=== PATIENT | female | born 2000 | race Caucasian/White ===

== ENCOUNTER → 2023-05-18 | Outpatient (CLI) | payer OTHER, SELFPAY ==
--- OUTSIDE RECORDS SUMMARY | 2023-05-18 16:14 | XMS RPT_ITS | CCD ---
Author Name Unknown Address [address] [place] [address] Organization [facility] Care Team Providers Care Electric Detector Operator Name Role Phone BOY WEBBER, MAGGI Moreno Primary Care Physician [phone] Medications Current Medications Medication Drug Class(es) Dates Sig (Normalized) Sig (Original) {7 (Ethinyl Estradiol 0.035 MG / norgestimate 0.18 MG Oral Tablet) / 7 (Ethinyl Estradiol 0.035 MG / norgestimate 0.215 MG Oral Tablet) / 7 (Ethinyl Estradiol 0.035 MG / norgestimate 0.25 MG Oral Tablet) / 7 (Inert Ingredients 1 MG Oral Tablet) } Pack [Tr (1 source) Progestin, Estrogen Start: 04-30-2021 take 1 tablet by mouth once daily Tri-Sprintec oral tablet See Instructions, TAKE 1 TABLET EVERY DAY, # 84 tab(s), 3 Refill(s), Pharmacy: [facility], 162.6, cm, 04/09/20 13:39:00 EST, Height, kg, 04/09/20 13:39:00 EST, Dosing Weight Start Date: 04/30/21 Status: Ordered lactobacillus rhamnosus oral capsule (1 source) Start: 09-03-2021 take 1 capsule by mouth once daily lactobacillus rhamnosus oral capsule Dose = 1 cap(s), Oral, qDay, # 30 cap(s), 0 Refill(s), Pharmacy: [facility], 162, cm, 09/03/21 8:45:00 EDT, Height Start Date: 09/03/21 Status: Ordered Tri-Sprintec oral tablet (1 source) Start: 04-30-2021 take 1 tablet by mouth once daily Tri-Sprintec oral tablet See Instructions, TAKE 1 TABLET EVERY DAY, # 84 tab(s), 3 Refill(s), Pharmacy: [facility], 162.6, cm, 04/09/20 13:39:00 EST, Height, kg, 04/09/20 13:39:00 EST, Dosing Weight Start Date: 04/30/21 Status: Ordered Problems Problem Classification Problem Date Documented Da te Episodic/Chronic Contraceptive and procreative management (2 sources) Oral contraception 04-30-2021 Episodic Other ear and sense organ disorders (2 sources) Impacted cerumen 04-10-2020 Episodic Unclassified (2 sources) Patient encounter status 04-01-2020 Results Test Name Value Interpretation Reference Range Facil ity Encounters Encounter Date Encounter Type Care Provider Facility Start: 09-03-2021 End: 09-07-2021 Outreach Lab MAILE MANAGER INTEGRATION-ATMOSPHERIC SCIENCES PROFESSOR [facility] Start: 04-30-2021 End: 05-04-2021 Outreach Lab TADEO SRINIVASAN MANAGER INTEGRATION-ATMOSPHERIC SCIENCES PROFESSOR [facility] Immunizations Immunization Date Immunization Notes Care Provider Roxane johnston 04-20-2021 SARS-CoV-2 (COVID-19 ) mRNA-1273 vaccine TADEO SRINIVASAN MANAGER INTEGRATION-ATMOSPHERIC SCIENCES PROFESSOR [facility] 12-25-2020 influenza virus vacc ine, unspecified formulation TADEO SRINIVASAN MANAGER INTEGRATION-ATMOSPHERIC SCIENCES PROFESSOR [facility] 08-08-2020 SARS-CoV-2 mRNA (tozinameran) vaccine TADEO SRINIVASAN MANAGER INTEGRATION-ATMOSPHERIC SCIENCES PROFESSOR [facility] 07-10-2020 SARS-CoV-2 mRNA (tozinameran) vaccine TADEO SRINIVASAN MANAGER INTEGRATION-ATMOSPHERIC SCIENCES PROFESSOR [facility] 11-09-2017 hepatitis B vaccine, adult dosage TADEO SRINIVASAN MANAGER INTEGRATION-ATMOSPHERIC SCIENCES PROFESSOR [facility] 10-12-2016 hepatitis A vaccine, pediatric dosage, unspecified formulation TADEO SRINIVASAN MANAGER INTEGRATION-ATMOSPHERIC SCIENCES PROFESSOR [facility] 10-12-2016 hepatitis B pediatri c vaccine TADEO LEUNGERS MANAGER INTEGRATION-ATMOSPHERIC SCIENCES PROFESSOR [facility] 10-12-2016 meningococcal polysaccharide (groups A, C, Y and W-135) diphtheria toxoid conjugate vaccine (MCV4P) TADEO ZARINA MANAGER INTEGRATION-ATMOSPHERIC SCIENCES PROFESSOR [facility] 10-01-2011 meningococcal polysaccharide (groups A, C, Y and W-135) diphtheria toxoid conjugate vaccine (MCV4P) TADEO SRINIVASAN MANAGER INTEGRATION-ATMOSPHERIC SCIENCES PROFESSOR [facility] 10-01-2011 tetanus toxoid, redu martha diphtheria toxoid, and acellular pertussis vaccine, adsorbed TADEO ZARINA MANAGER INTEGRATION-ATMOSPHERIC SCIENCES PROFESSOR [facility] 10-01-2011 varicella virus vaccine CHELSEA HUIZAR MANAGER INTEGRATION-ATMOSPHERIC SCIENCES PROFESSOR [facility] 09-01-2004 measles/mumps/rubell a virus vaccine TADEO SRINIVASAN MANAGER INTEGRATION-ATMOSPHERIC SCIENCES PROFESSOR [facility] 09-01-2004 poliovirus vaccine, inactivated TADEO SRINIVASAN MANAGER INTEGRATION-ATMOSPHERIC SCIENCES PROFESSOR [facility] 02-28-2001 haemophilus influenz ae type b vaccine, PRP-OMP conjugate TADEO SRINIVASAN MANAGER INTEGRATION-ATMOSPHERIC SCIENCES PROFESSOR [facility] 12-01-2000 measles/mumps/rubell a virus vaccine TADEO SRINIVASAN MANAGER INTEGRATION-ATMOSPHERIC SCIENCES PROFESSOR [facility] 09-02-2000 hepatitis B pediatri c vaccine TADEO SRINIVASAN MANAGER INTEGRATION-ATMOSPHERIC SCIENCES PROFESSOR [facility] 09-02-2000 varicella virus vaccine CHELSEA HUIZAR MANAGER INTEGRATION-ATMOSPHERIC SCIENCES PROFESSOR [facility] 05-27-2000 poliovirus vaccine, inactivated TADEO SRINIVASAN MANAGER INTEGRATION-ATMOSPHERIC SCIENCES PROFESSOR [facility] 02-18-2000 haemophilus influenz ae type b vaccine, PRP-OMP conjugate TADEO SRINIVASAN MANAGER INTEGRATION-ATMOSPHERIC SCIENCES PROFESSOR [facility] 02-18-2000 hepatitis B pediatri c vaccine TADEO SRINIVASAN MANAGER INTEGRATION-ATMOSPHERIC SCIENCES PROFESSOR [facility] 1999 haemophilus influenz ae type b vaccine, PRP-OMP conjugate TADEO SRINIVASAN MANAGER INTEGRATION-ATMOSPHERIC SCIENCES PROFESSOR [facility] 1999 poliovirus vaccine, inactivated TADEO SRINIVASAN MANAGER INTEGRATION-ATMOSPHERIC SCIENCES PROFESSOR [facility] 1999 haemophilus influenz ae type b vaccine, PRP-OMP conjugate TADEO SRINIVASAN MANAGER INTEGRATION-ATMOSPHERIC SCIENCES PROFESSOR [facility] 1999 poliovirus vaccine, inactivated TADEO SRINIVASAN MANAGER INTEGRATION-ATMOSPHERIC SCIENCES PROFESSOR [facility] Social History Date Type Detail Facility Start: 02-02-2019 Never smoked t obacco (finding) [facility] Sex Assigned At [facility] Clinical Note 09-05-2021 Note Date & Type Note Facility 09-05-2021 Note . MICRO - Microbiology PROCEDURE: Urine Culture [*1] SOURCE: Urine, Clean Catch BODY SITE: COLLECTED DATE/TIME: 09/03/2021 08:59 EDT RECEIVED DATE/TIME: 09/03/2021 20:08 EDT START DATE/TIME: 09/03/2021 20:08 EDT FREE TEXT SOURCE: FINAL REPORTS Final Report [] Verified Date/Time/Personnel: 09/05/2021 07:41 EDT No growth at 48 hours. PRELIMINARY REPORTS Preliminary Report [] Verified Date/Time/Personnel: 09/04/2021 10:42 EDT No growth at 24 hours. Performing Locations *1: This test was performed at: [facility], [address] [place] [address], [facility] , [facility] Evaluation + Plan note Note Date & Type Note Facility Evaluation + Plan note No data available for this section [facility] Discharge instructions Note Date & Type Note Facility Hospital Discharge instructions No data available for this section [facility] Progress note Note Date & Type Note Facility Progress note No data available for this section [facility] Summary Purpose Family History No Family History Records Found Advance Directives No Advanced Directives Records Found Additional Source Comments Care Team (unrecognized sect ion and content) Personnel Name: NAUMOFF, MAGGI J MD Address: [address] INFORMATION SOURCE (unrecogn ized section and content) FOR RECORDS PERTAINING TO PATIENTS WHO ARE OR HAVE BEEN ENROLLED IN A CHEMICAL DEPENDENCY/SUBSTANCEABUSE PROGRAM, SOME INFORMATION MAY BE OMITTED. This clinical summary was aggregated from multiple sources. Caution should be exercised in using it in the provision of clinical care. This summary normalizes information from multiple sources, and as a consequence, information in this document may materially change the coding, format and clinical context of patient data. In addition, data may be omitted in some cases. CLINICAL DECISIONS SHOULD BE BASED ON THE PRIMARY CLINICAL RECORDS. [facility] [employer] provides no warranty or guarantee of the accuracy or completeness of information in this document.
[2023-05-21 06:10] LABS: Chlamydia By Nucleic Acid AMP Negative (Negative); Gonococcus By Nucleic Acid AMP Negative (Negative)
== END | disposition home or self-care (01) ==
LOC: LABSPEC 14:57
PROVIDERS: Referring Provider Registered Nurse; Visit Provider Registered Nurse
DX: Z34.90 Encounter for supervision of normal pregnancy, unspecified, unspecified trimester (principal); Z3A.00 Weeks of gestation of pregnancy not specified
CPT/HCPCS: 87086; 87491; 87591

== ENCOUNTER → 2023-05-30 | Outpatient (CLI) | payer OTHER, SELFPAY ==
[2023-05-30 15:41] LABS: Absolute Lymphocyte Count 1.79 X10^3/uL (0.83-4.51); Absolute Neutrophil Count 6.9 X10^3/uL (2.0-7.7); Basophil# 0.02 X10^3/uL; Basophil% 0.2 % (0-1); Eosinophil# 0.03 X10^3/uL; Eosinophils% 0.3 % (0-5); Hematocrit 37.4 % (37-47); Hemoglobin 11.8 g/dL (12.0-15.0); Lymphocyte # 1.79 X10^3/ul (0.83-4.51); Lymphocyte % 19.5 % (19-41); Mean Corp Hgb Conc 31.6 g/dL (32-36); Mean Corpuscular Hgb 27.5 pg (27.0-32.0); Mean Corpuscular Volume 87.2 fL (81-99); Monocyte# 0.34 X10^3/uL; Monocyte% 3.7 % (0-10); NRBC Flagged by Analyzer 0 % (0-5); Neutrophil # 6.94 X10^3/uL (2.7-7.7); Neutrophil % 75.6 % (47-70); Platelet Count 273 K/mm3 (150-450); RBC Distribution Width CV 12.4 % (11.6-14.6); RBC Distribution Width SD 39.5 fl (35.1-43.9); Red Blood Count 4.29 M/mm3 (4.2-5.4); White Blood Count 9.2 K/mm3 (4.4-11.0)
[2023-05-30 18:21] LABS: HIV - WCH Non-Reactive (Nonreactive); Hepatitis B Surface Antigen Non-Reactive (Nonreactive); Hepatitis C Antibody Non-Reactive (Nonreactive); Rubella IgG Reactive (Nonreactive); Syphilis Antibodies Non-reactive
== END | disposition home or self-care (01) ==
PROVIDERS: PCP Nurse Practitioner Primary Care; Referring Provider Registered Nurse; Visit Provider Registered Nurse
DX: Z34.90 Encounter for supervision of normal pregnancy, unspecified, unspecified trimester (principal); Z3A.00 Weeks of gestation of pregnancy not specified
CPT/HCPCS: 36415; 85025; 86703; 86762; 86780; 86803; 86850; 86900; 86901; 87340

== ENCOUNTER → 2023-06-03 14:17 | Outpatient (REF) | payer SELFPAY ==
[2023-06-03 14:18] VITALS: TEMP 36.6
--- NOTE | 2023-06-03 16:26 | EDS_ITS ---
HPI History of Present Illness Chief Complaint: Occup Expose Informant: patient Narrative Narrative: Patient present secondary to occupational exposure. 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 She irrigated her eyes for 15 to 20 minutes prior to arrival. Patient's hepatitis shots are up-to-date. She is currently 10 weeks . [facility] Medical History Seasonal allergies Home Medications PNV 153-FA 400 mcg-om3 35 mg-dha 25 mg-epa 5 mg-fish oil chew tablet tab PO 05/13/23 [History Last Taken Unknown] ondansetron 4 mg disintegrating tablet 4 mg PO Q8H #30 tabs 05/18/23 [Rx Last Taken Unknown] Allergy/AdvReac Type Severity Reaction Status Date / Time No Known Allergies Allergy Verified 06/03/23 14:18 Family History Grandmother Breast cancer, Onset Age: 50 Paternal Surgical History [place] teeth extracted Social History adopted: No household members: spouse current occupational status: employed 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 history of recent travel: Yes ([facility]- [place]) out of state: Yes out of country: No sexually active: Yes Smoking Status: Never smoker alcohol intake: current alcohol intake frequency: holidays/special occasions only details: not while substance use type: does not use well-balanced diet: daily or most days caffeine: No eating out: 1-3 times/week during the past year weight has: remained stable what type of physical activity do you participate in: walking frequency: 1-2 times per week duration: 15-30 minutes/day michaela/baptism: Congregational seatbelt use: always do you feel safe at home: Yes 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 ROS ROS ED Constitutional Constitutional ED: Denies chills or fever(s) Eyes Eyes: Denies change in vision or discharge from eye(s) ENT ENT ED: Denies discharge from eye(s) or rhinorrhea Cardiovascular Cardiovascular: Denies chest pain Respiratory/Chest Respiratory/Chest: Denies cough or dyspnea Gastrointestinal Gastrointestinal: Reports nausea; Denies abdominal pain or vomiting Musculoskeletal Musculoskeletal: Denies back pain or extremity pain Integumentary Denies Abrasions or rash Neurologic Neurologic: Denies headache(s) or weakness Psychiatric Psychiatric: Denies anxiety or depression Allergic/Immunologic Allergic/Immunologic ED: Denies lip swelling or urticaria EXAM Physical Exam Const Vital Signs: 06/03/23 14:18 Temperature 98 F Temperature Source Temporal Oxygen Delivery Method Room Air Positive well nourished and well developed General Appearance ED: well developed HEENT Reports moist mucous membranes Eyes PERRL and EOMs intact bilaterally Chest Wall inspection of chest normal and palpation of chest normal Resp normal respiratory effort and clear to auscultation bilaterally Cardio regular rate and regular rhythm GI non-tender Palpation: soft Neuro oriented x3 Skin no rashes or lesions noted MDM MDM MDM Narrative Medical decision making narrative: Lab work was obtained per protocol from both patient as well as the surgical patient that exposed her. She will follow-up with employee [facility]. Discharge Plan Triage Chief Complaint: Occup Expose ED Provider: Olivia Collazo Dx/Rx/DC Orders Clinical Impression: Exposure to body fluid Instructions: ED Body Fluid Exposure Not ... Prescriptions: No Action PNV no.474-[id number]-fgi-[id number]-lzuh 400 mcg-35 mg- 25 mg-5 mg tablet,chewable PO ondansetron 4 mg tablet,disintegrating 4 mg PO Q8H Qty: 30 3RF Primary Care Provider: Sonam Martinez NP Referrals: Health,Employee [Non-Staff -Ordering Privileges] - 3-5 Days Sonam Martinez NP, [facility] [Primary Care Provider] - Disposition Disposition: Home, Self Care
[2023-06-03 17:09] LABS: HIV - WCH Non-Reactive (Nonreactive); Hepatitis B Surface Antibody Reactive; Hepatitis B Surface Antigen Non-Reactive (Nonreactive); Hepatitis C Antibody Non-Reactive (Nonreactive)
[2023-06-05 08:08] LABS: Hepatitis B Core Ab Total Negative (Negative)
== END | disposition home or self-care (01) ==
LOC: ED 14:17
PROVIDERS: PCP Nurse Practitioner Primary Care; Visit Provider Emergency Medicine
DX: Z77.21 Contact with and (suspected) exposure to potentially hazardous body fluids (principal)
CPT/HCPCS: 86703; 86704; 86706; 86803; 87340

== ENCOUNTER → 2023-07-26 | Outpatient (CLI) | payer OTHER, SELFPAY ==
[2023-07-26 10:52] LABS: Absolute Lymphocyte Count 1.44 X10^3/uL (0.83-4.51); Absolute Neutrophil Count 7.3 X10^3/uL (2.0-7.7); Basophil# 0.04 X10^3/uL; Basophil% 0.4 % (0-1); Eosinophil# 0.04 X10^3/uL; Eosinophils% 0.4 % (0-5); Hematocrit 34.5 % (37-47); Hemoglobin 11.2 g/dL (12.0-15.0); Lymphocyte # 1.44 X10^3/ul (0.83-4.51); Lymphocyte % 15.5 % (19-41); Mean Corp Hgb Conc 32.5 g/dL (32-36); Mean Corpuscular Hgb 28.6 pg (27.0-32.0); Mean Corpuscular Volume 88.2 fL (81-99); Mean Platelet Vol. 9.9 fl (6.2-12.0); Monocyte# 0.41 X10^3/uL; Monocyte% 4.4 % (0-10); NRBC Flagged by Analyzer 0 % (0-5); Neutrophil % 78.8 % (47-70); Platelet Count 245 K/mm3 (150-450); RBC Distribution Width CV 13.4 % (11.6-14.6); RBC Distribution Width SD 43.2 fl (35.1-43.9); Red Blood Count 3.91 M/mm3 (4.2-5.4); White Blood Count 9.3 K/mm3 (4.4-11.0)
== END | disposition home or self-care (01) ==
LOC: LAB 10:19
PROVIDERS: PCP Nurse Practitioner Primary Care; Referring Provider Nurse Practitioner Women's Health; Visit Provider Nurse Practitioner Women's Health
DX: Z34.00 Encounter for supervision of normal first pregnancy, unspecified trimester (principal); Z3A.00 Weeks of gestation of pregnancy not specified
CPT/HCPCS: 36415; 85025

== ENCOUNTER → 2023-09-21 | Outpatient (CLI) | payer OTHER, SELFPAY ==
[2023-09-21 16:23] LABS: Absolute Neutrophil Count 6.8 X10^3/uL (2.0-7.7); Basophil# 0.04 X10^3/uL; Basophil% 0.4 % (0-1); Eosinophil# 0.05 X10^3/uL; Eosinophils% 0.5 % (0-5); Hematocrit 32.3 % (37-47); Hemoglobin 10.1 g/dL (12.0-15.0); Lymphocyte % 17.3 % (19-41); Mean Corp Hgb Conc 31.3 g/dL (32-36); Mean Corpuscular Volume 89.5 fL (81-99); Mean Platelet Vol. 10.2 fl (6.2-12.0); Monocyte# 0.64 X10^3/uL; Monocyte% 6.9 % (0-10); NRBC Flagged by Analyzer 0 % (0-5); Neutrophil # 6.83 X10^3/uL (2.7-7.7); Neutrophil % 73.9 % (47-70); Platelet Count 249 K/mm3 (150-450); RBC Distribution Width CV 12.5 % (11.6-14.6); RBC Distribution Width SD 40.7 fl (35.1-43.9); Red Blood Count 3.61 M/mm3 (4.2-5.4); White Blood Count 9.3 K/mm3 (4.4-11.0)
[2023-09-21 16:49] LABS: Glucose Challenge Gest 1H 50g 108 mg/dL (70-140)
[2023-09-21 17:09] LABS: HIV - WCH Non-Reactive (Nonreactive); Syphilis Antibodies Non-reactive
== END | disposition home or self-care (01) ==
LOC: LAB 14:26
PROVIDERS: PCP Nurse Practitioner Primary Care; Visit Provider Obstetrics & Gynecology
DX: Z34.00 Encounter for supervision of normal first pregnancy, unspecified trimester (principal); Z3A.00 Weeks of gestation of pregnancy not specified
CPT/HCPCS: 36415; 82950; 85025; 86703; 86780

== ENCOUNTER → 2023-10-12 | Outpatient (CLI) | payer OTHER, SELFPAY ==
[2023-10-12 16:03] LABS: Absolute Lymphocyte Count 1.86 X10^3/uL (0.83-4.51); Absolute Neutrophil Count 7.6 X10^3/uL (2.0-7.7); Basophil# 0.04 X10^3/uL; Basophil% 0.4 % (0-1); Eosinophil# 0.06 X10^3/uL; Eosinophils% 0.6 % (0-5); Hematocrit 33.2 % (37-47); Hemoglobin 10.3 g/dL (12.0-15.0); Lymphocyte # 1.86 X10^3/ul (0.83-4.51); Lymphocyte % 17.7 % (19-41); Mean Corpuscular Hgb 27.5 pg (27.0-32.0); Mean Corpuscular Volume 88.8 fL (81-99); Mean Platelet Vol. 10.2 fl (6.2-12.0); Monocyte# 0.77 X10^3/uL; Monocyte% 7.3 % (0-10); NRBC Flagged by Analyzer 0 % (0-5); Neutrophil # 7.62 X10^3/uL (2.7-7.7); Neutrophil % 72.5 % (47-70); Platelet Count 236 K/mm3 (150-450); RBC Distribution Width SD 42.2 fl (35.1-43.9); Red Blood Count 3.74 M/mm3 (4.2-5.4); White Blood Count 10.5 K/mm3 (4.4-11.0)
[2023-10-12 16:35] LABS: ALB/GLOB Ratio 0.7 RATIO (0.9-2.4); AST(SGOT) 29 U/L (15-37); Alanine Aminotransfer ALT/SGPT 24 U/L (13-56); Albumin, Serum 2.9 g/dL (3.2-5.0); Alkaline Phosphatase 60 U/L (45-117); Anion Gap 7 (5-15); BUN 9 mg/dL (7-18); Calcium,Total 8.9 mg/dL (8.5-10.1); Chloride 108 mmol/L (98-107); EST Glomerular Filtration Rate 161 mL/min (>60); Est Glom Filt Rate - Afr Amer 195 mL/min (>60); Globulin 3.9 g/dL (2.2-4.2); Glucose 92 mg/dL (74-106); Potassium 3.7 mmol/L (3.5-5.1); Protein, Total 6.8 g/dL (6.4-8.2); Sodium Level 137 mmol/L (136-145); Total Bilirubin < 0.10 mg/dL (0.20-1.00)
[2023-10-12 16:47] LABS: Protein, Urine (Random) 8.2 mg/dL (<11.9); Protein:Creat Ratio 201 mg/g CRE (0-200)
== END | disposition home or self-care (01) ==
LOC: LAB 15:18
PROVIDERS: PCP Nurse Practitioner Primary Care; Referring Provider Advanced Practice Midwife; Visit Provider Advanced Practice Midwife
DX: R07.81 Pleurodynia (principal); D64.9 Anemia, unspecified
CPT/HCPCS: 36415; 80053; 82570; 84156; 85025

== ENCOUNTER 2023-11-15 21:25 | Outpatient (CLI) | payer OTHER, SELFPAY ==
[2023-11-15 21:49] VITALS: PULSE 90; O2SAT 99
[2023-11-15 21:50] VITALS: BP 126/71; PULSE 90
[2023-11-15 22:17] VITALS: BMI 32.4
--- NOTE | 2023-11-15 23:51 | OB.TRI.HP_ITS ---
HPI - General HPI Narrative MARTHA WINN, is a 23 y/o @ 34 weeks 1 day who presents to L&D with decreased movement. She has just the minimal movements today (4 kicks in 40 minutes) and states that her baby is usually more active than that. Maternal Data Information DAMARIS Calculator Estimated Delivery Date Method Current WG Current Estimate 12/28/23 LMP (Certain) 34w 1d PFSH PFSH Medical History Seasonal allergies Home Medications ?Medication ?Instructions ?Recorded ?Last Taken ?Type PNV 153-FA 400 mcg-om3 35 mg-dha tab PO 05/13/23 11/15/23 History 25 mg-epa 5 mg-fish oil chew tablet ondansetron 4 mg disintegrating 4 mg PO Q8H #30 tabs 05/18/23 Unknown Rx tablet ferrous sulfate 137 mg (45 mg 137 mg PO DAILY 10/12/23 11/14/23 History iron) tablet,extended release (Slow Fe) Allergy/AdvReac Type Severity Reaction Status Date / Time No Known Allergies Allergy Verified 11/15/23 22:18 Family History Grandmother Breast cancer, Onset Age: 50 Paternal Surgical History [place] teeth extracted Social History adopted: No household members: spouse current occupational status: employed 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 history of recent travel: Yes ([facility]- [place]) out of state: Yes out of country: No sexually active: Yes Smoking Status: Never smoker alcohol intake: current alcohol intake frequency: holidays/special occasions only details: not while substance use type: does not use well-balanced diet: daily or most days caffeine: No eating out: 1-3 times/week during the past year weight has: remained stable what type of physical activity do you participate in: walking frequency: 1-2 times per week duration: 15-30 minutes/day michaela/orthodox: Mu-Ism seatbelt use: always do you feel safe at home: Yes 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 History 1 Elective abortions Hx Para 0 Spontaneous abortions Hx # Term Pregnancies Ectopic pregnancies Hx # Pregnancies Multiple births # of living children Visit Details Expected Delivery Route/Plan Labor Preferences- CB/BF classes: [] labor support person: [] labor intervention preferences: [] pain management options preferred: [] cut cord/dad catch: [] : [] PP control planned: [] discussed possible routes of delivery and associated risks: [] special requests: [] Plans Covid status: [] Flu vaccine: [] Tdap vaccine: [] Rhogam: [] LARC form signed: [] Problem list reviewed and updated with the most current plan of care details and appropriate orders placed. Relevant counseling for the gestational age provided. Continue routine care and follow up unless otherwise noted in visit notes/problem list details OB Flowsheet Initial Weight: 142 lb Date -?-?-?-?-?-?-?-?-?-?-?-?- EGA Weight BP Urine Prot -?-?-?-?-?-?-?-?-?-?-?-?- Glucose FHR FuHt Pres Dilation -?-?-?-?-?-?-?-?-?-?-?-?- Effaced St Visit Note 05/18/23 -?-?-?-?-?-?-?-?-?-?-?-?- 8w 0d 142 lb 8 oz (+8 oz) 117/73 -?-?-?-?-?-?-?-?-?-?-?-?- 163 -?-?-?-?-?-?-?-?-?-?-?-?- LC- CRL 13.5mm c on with LMP. 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 06/29/23 -?-?-?-?-?-?-?-?-?-?-?-?- 14w 0d 141 lb 2 oz (-14 oz) 113/76 Negative -?-?-?-?-?-?-?-?-?-?-?-?- Negative 156 -?-?-?-?-?-?-?-?-?-?-?-?- JV-no lof, vagin al bleeding, or cramping. 07/26/23 -?-?-?-?-?-?-?-?-?-?-?-?- 17w 6d 145 lb 8 oz (+3 lb 8 oz) 122/70 Negative -?-?-?-?-?-?-?-?-?-?-?-?- Negative 161 -?-?-?-?-?-?-?-?-?-?-?-?- MH-Episode of bl urred vision, numbness of lips and fingertips. [place] dizzy. 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 Reviewed diet, fluids, carb intake etc. FM heard w/doppler. POC glucoe 118. 08/25/23 -?-?-?-?-?-?-?-?-?-?-?-?- 22w 1d 154 lb (+12 lb) 106/72 Negative -?--?-?-?-?-?-?-?-?-?-?-?- Negative 150 -?-?-?-?-?-?-?-?-?-?-?-?- SM- no vb lof go od fm no regualr ctx 09/22/23 -?-?-?-?-?-?-?-?-?-?-?-?- 26w 1d 165 lb 8 oz (+23 lb 8 oz) 114/68 Negative -?-?-?-?-?-?-?-?-?-?-?-?- Negative 140 27 -?-?-?-?-?-?-?-?-?-?-?-?- KW- no vb/lof/ct x. good fm. LARC done. passed glucose. started PO iron. repeat cbc in 4 weeks 10/12/23 -?-?-?-?-?-?-?-?-?-?-?-?- 29w 0d 172 lb (+30 lb) 131/82 128/74 Negative -?-?-?-?-?-?-?-?-?-?-?-?- Negative 140 29 -?-?-?-?-?-?-?-?-?-?-?-?- KW- no vb/lof/ct x. good fm. having rib pain on and off with some episodes of dizziness. compression hose encouraged. pre e labs today 11/01/23 -?-?-?-?-?-?-?-?-?-?-?-?- 31w 6d 183 lb (+41 lb) 130/74 Negative -?-?-?-?-?-?-?-?-?-?-?-?- Negative 140 32 -?-?-?-?-?-?-?-?-?-?-?-?- SM- no vb lof go od fm no regular ctx ROS Constitutional Constitutional: Reports systems reviewed and no addt'l complaints, except as documented Gastrointestinal Gastrointestinal: Denies bloating, constipation, cramping, diarrhea, nausea or vomiting Genitourinary Genitourinary: Reports other Details: Denies vaginal odor, vaginal bleeding, or vaginal discharge ; Denies difficulty urinating or flank pain NST FHR Rate Baby A Baseline: 125 Variability:: Moderate Accelerations:: 15 x 15 Decelerations:: None NST Reactive:: Yes FHR Category:: Category I Uterine Activity:: no contractions Assessment & Plan (1) Anemia: COMMENT: repeat CBC in 4 wks (30weeks) (2) Supervision of normal first : QUALIFIERS: Trimester: second trimester Qualified Code(s): Z34.02 - Encounter for supervision of normal first , second trimester COMMENT: PRR, , DAMARIS 12/28/23, boy Endy Rambo (3) : QUALIFIERS: Weeks of gestation: 30 weeks Qualified Code(s): Z3A.30 - 30 weeks gestation of COMMENT: anatomy nl, discussed genetic & carrier testing. declined afp. (4) Decreased movement affecting management of mother, antepartum: PLAN: Plan NSt reactive. patient reassured and is now feeling movement since being on the unit. ok to discharge to home. Charges/Coding Multi Select Codes Urinary/Genital Urinary/Genital CPT Codes: 04949-24 non-stress test Interp
== END 2023-11-15 22:37 | disposition home or self-care (01) ==
LOC: WPOUT 21:29 → WP 21:29
PROVIDERS: PCP Nurse Practitioner Primary Care; Referring Provider Obstetrics & Gynecology; Visit Provider Obstetrics & Gynecology
DX: O36.8130 Decreased fetal movements, third trimester, not applicable or unspecified (principal); Z3A.30 30 weeks gestation of pregnancy
CPT/HCPCS: 59025; 59050; 99221; G0378

== ENCOUNTER → 2023-11-30 | Outpatient (CLI) | payer OTHER, SELFPAY | END | disposition home or self-care (01) | PROVIDERS: PCP Nurse Practitioner Primary Care; Referring Provider Obstetrics & Gynecology; Visit Provider Obstetrics & Gynecology | DX: Z34.02 Encounter for supervision of normal first pregnancy, second trimester (principal) | CPT/HCPCS: 87081 ==

== ENCOUNTER 2023-12-21 10:09 | Outpatient (CLI) | payer OTHER, SELFPAY ==
[2023-12-21 10:40] VITALS: BP 125/77; PULSE 102; RESP 16; TEMP 37.1; O2SAT 98
[2023-12-21 10:52] VITALS: BMI 34.5
[2023-12-21 11:24] LABS: ROM Internal Control Test YES-OK TO RESULT pt. (Internal QC); ROM Patient Test Negative (Negative); Record Kit Lot#, ROM+ K1866
--- NOTE | 2023-12-21 15:49 | OB.TRI.HP_ITS ---
HPI - General HPI Narrative MARTHA WINN, is a 23 y/o @ 39 weeks who presents to L&D with the complaint of leaking fluid and back pain. She denies vaginal bleeding or decreased movement. Maternal Data Information DAMARIS Calculator Estimated Delivery Date Method Current WG Current Estimate 12/28/23 LMP (Certain) 39w 0d PFSH PFSH Medical History Seasonal allergies Home Medications ?Medication ?Instructions ?Recorded ?Last Taken ?Type PNV 153-FA 400 mcg-om3 35 mg-dha 1 tab PO DAILY 05/13/23 12/21/23 History 25 mg-epa 5 mg-fish oil chew tablet ondansetron 4 mg disintegrating 4 mg PO Q8H #30 tabs 05/18/23 Unknown Rx tablet ferrous sulfate 137 mg (45 mg 137 mg PO DAILY 10/12/23 12/20/23 History iron) tablet,extended release (Slow Fe) Allergy/AdvReac Type Severity Reaction Status Date / Time No Known Allergies Allergy Verified 12/21/23 10:54 Family History Grandmother Breast cancer, Onset Age: 50 Paternal Surgical History [place] teeth extracted Social History adopted: No household members: spouse current occupational status: employed 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 pets and animals: No history of recent travel: Yes ([facility]- March) out of state: Yes out of country: No sexually active: Yes Smoking Status: Never smoker alcohol intake: current alcohol intake frequency: holidays/special occasions only details: not while substance use type: does not use well-balanced diet: daily or most days caffeine: No eating out: 1-3 times/week during the past year weight has: remained stable what type of physical activity do you participate in: walking frequency: 1-2 times per week duration: 15-30 minutes/day michaela/caodaism: Confucianism seatbelt use: always do you feel safe at home: Yes 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 History 1 Elective abortions Hx Para 0 Spontaneous abortions Hx # Term Pregnancies Ectopic pregnancies Hx # Pregnancies Multiple births # of living children Visit Details Expected Delivery Route/Plan Labor Preferences- CB/BF classes: [] labor support person: [] labor intervention preferences: [] pain management options preferred: [] cut cord/dad catch: [] : [] PP control planned: [] discussed possible routes of delivery and associated risks: [] special requests: [] Plans Covid status: [] Flu vaccine: Tdap vaccine:declined Rhogam: na LARC form signed: declined movement and labor precautions reviewed. Problem list reviewed and updated with the most current plan of care details and appropriate orders placed. Relevant counseling for the gestational age provided. Continue routine care and follow up unless otherwise noted in visit notes/problem list details OB Flowsheet Initial Weight: 142 lb Date -?-?-?-?-?-?-?-?-?-?-?-?- EGA Weight BP Urine Prot -?-?-?-?-?-?-?-?-?-?-?-?- Glucose FHR FuHt Pres Dilation -?-?-?-?-?-?-?-?-?-?-?-?- Effaced St Visit Note 05/18/23 -?-?-?-?-?-?-?-?-?-?-?-?- 8w 0d 142 lb 8 oz (+8 oz) 117/73 -?-?-?-?-?-?-?-?-?-?-?-?- 163 -?-?-?-?-?-?-?-?-?-?-?-?- LC- CRL 13.5mm c on with LMP. 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 06/29/23 -?-?-?-?-?-?-?-?-?-?-?-?- 14w 0d 141 lb 2 oz (-14 oz) 113/76 Negative -?-?-?-?-?-?-?-?-?-?-?-?- Negative 156 -?-?-?-?-?-?-?-?-?-?-?-?- JV-no lof, vagin al bleeding, or cramping. 07/26/23 -?-?-?-?-?-?-?-?-?-?-?-?- 17w 6d 145 lb 8 oz (+3 lb 8 oz) 122/70 Negative -?-?-?-?-?-?-?-?-?-?-?-?- Negative 161 -?-?-?-?-?-?-?-?-?-?-?-?- MH-Episode of bl urred vision, numbness of lips and fingertips. [place] dizzy. RN her at [facility] and came up to office. Reviewed diet, fluids, carb intake etc. FM heard w/doppler. POC glucoe 118. 08/25/23 -?-?-?-?-?-?-?-?-?-?-?-?- 22w 1d 154 lb (+12 lb) 106/72 Negative -?-?-?-?-?-?-?-?-?-?-?-?- Negative 150 -?-?-?-?-?-?-?-?-?-?-?-?- SM- no vb lof go od fm no regualr ctx 09/22/23 -?-?-?-?-?-?-?-?-?-?-?-?- 26w 1d 165 lb 8 oz (+23 lb 8 oz) 114/68 Negative -?-?-?-?-?-?-?-?-?-?-?-?- Negative 140 27 -?-?-?-?-?-?-?--?-?-?-?-?- KW- no vb/lof/ct x. good fm. LARC done. passed glucose. started PO iron. repeat cbc in 4 weeks 10/12/23 -?-?-?-?-?-?-?-?-?-?-?-?- 29w 0d 172 lb (+30 lb) 131/82 128/74 Negative -?-?-?-?-?-?-?-?-?-?-?-?- Negative 140 29 -?-?-?-?-?-?-?-?-?-?-?-?- KW- no vb/lof/ct x. good fm. having rib pain on and off with some episodes of dizziness. compression hose encouraged. pre e labs today 11/01/23 -?-?-?-?-?-?-?-?-?-?-?-?- 31w 6d 183 lb (+41 lb) 130/74 Negative -?-?-?-?-?-?-?-?-?-?-?-?- Negative 140 32 -?-?-?-?-?-?-?-?-?-?-?-?- SM- no vb lof go od fm no regular ctx 11/18/23 -?-?-?-?-?-?-?-?-?-?-?-?- 34w 2d 192 lb (+50 lb) 113/72 Negative -?-?-?-?-?-?-?-?-?-?-?-?- Negative 144 35 -?-?-?-?-?-?--?-?-?-?-?-?- JV- no lof, vagi nal bleeding, or dec fm. no complaints. inquiring about RSV vaccine. 11/30/23 -?-?-?-?-?-?-?-?-?-?-?-?- 36w 0d 195 lb (+53 lb) 195 lb (+53 lb) 118/75 Negative -?-?-?-?-?-?-?-?-?-?-?-?- Negative 135 36 Cephalic -?-?-?-?-?-?-?-?-?-?-?-?- Sm- no vb lof go od fm no regular ctx. 12/05/23 -?-?-?-?-?-?-?-?-?-?-?-?- 36w 5d 198 lb 2 oz (+56 lb 2 oz) 116/76 Negative -?-?-?-?-?--?-?-?-?-?-?-?- Negative 130 36 Cephalic 0 -?-?-?-?-?-?-?-?-?-?-?-?- JV- gbs is neg. cx is closed/thick/high/ posterior. vtx on bedside ultrasound. 12/12/23 -?-?-?-?-?-?-?-?-?-?-?-?- 37w 5d 201 lb 2 oz (+59 lb 2 oz) 122/85 Negative -?-?-?-?-?-?-?-?-?-?-?-?- Negative 141 37 Cephalic 0 -?-?-?-?-?-?-?-?-?-?-?-?- JV- no lof, vagi nal bleeding, or dec fm. cx is softer and more anterior than last visit. ROS Constitutional Constitutional: Reports systems reviewed and no addt'l complaints, except as documented Gastrointestinal Gastrointestinal: Denies bloating, constipation, cramping, diarrhea, nausea or vomiting Genitourinary Genitourinary: Reports other Details: Denies vaginal odor, vaginal bleeding, or vaginal discharge ; Denies difficulty urinating or flank pain NST FHR Rate Baby A Baseline: 140 Variability:: Moderate Accelerations:: 15 x 15 Decelerations:: None NST Reactive:: Yes FHR Category:: Category I Assessment & Plan (1) False labor after 37 completed weeks of gestation: COMMENT: Rom plus is negative 12/21/23 PLAN: reactive nst ok to dc to home with labor precautions. (2) Decreased movement affecting management of mother, antepartum: (3) Anemia: COMMENT: repeat CBC in 4 wks (30weeks) (4) Supervision of normal first : QUALIFIERS: Trimester: second trimester Qualified Code(s): Z34.02 - Encounter for supervision of normal first , second trimester COMMENT: PRR, , DAMARIS 12/28/23, boy Endy Rambo (5) : QUALIFIERS: Weeks of gestation: 37 weeks Qualified Code(s): Z3A.37 - 37 weeks gestation of COMMENT: anatomy nl, discussed genetic & carrier testing. declined afp. Charges/Coding Multi Select Codes Urinary/Genital Urinary/Genital CPT Codes: 21869-07 non-stress test Interp
--- NOTE | 2023-12-21 15:49 | OB.TRI.NOTE ---
HPI - General HPI Narrative MARTHA WINN, is a 23 y/o @ 39 weeks who presents to L&D with the complaint of leaking fluid and back pain. She denies vaginal bleeding or decreased movement. Maternal Data Information DAMARIS Calculator Estimated Delivery Date Method Current WG Current Estimate 12/28/23 LMP (Certain) 39w 0d PFSH PFSH Medical History Seasonal allergies Home Medications ?Medication ?Instructions ?Recorded ?Last Taken ?Type PNV 153-FA 400 mcg-om3 35 mg-dha 1 tab PO DAILY 05/13/23 12/21/23 History 25 mg-epa 5 mg-fish oil chew tablet ondansetron 4 mg disintegrating 4 mg PO Q8H #30 tabs 05/18/23 Unknown Rx tablet ferrous sulfate 137 mg (45 mg 137 mg PO DAILY 10/12/23 12/20/23 History iron) tablet,extended release (Slow Fe) Allergy/AdvReac Type Severity Reaction Status Date / Time No Known Allergies Allergy Verified 12/21/23 10:54 Family History Grandmother Breast cancer, Onset Age: 50 Paternal Surgical History [place] teeth extracted Social History adopted: No household members: spouse current occupational status: employed 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: No history of recent travel: Yes (COUNTS INCLUDE 234 BEDS AT [facility]- March) out of state: Yes out of country: No sexually active: Yes Smoking Status: Never smoker alcohol intake: current alcohol intake frequency: holidays/special occasions only details: not while substance use type: does not use well-balanced diet: daily or most days caffeine: No eating out: 1-3 times/week during the past year weight has: remained stable what type of physical activity do you participate in: walking frequency: 1-2 times per week duration: 15-30 minutes/day michaela/nondenominational: Anabaptist seatbelt use: always do you feel safe at home: Yes 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 History 1 Elective abortions Hx Para 0 Spontaneous abortions Hx # Term Pregnancies Ectopic pregnancies Hx # Pregnancies Multiple births # of living children Visit Details Expected Delivery Route/Plan Labor Preferences- CB/BF classes: [] labor support person: [] labor intervention preferences: [] pain management options preferred: [] cut cord/dad catch: [] : [] PP control planned: [] discussed possible routes of delivery and associated risks: [] special requests: [] Plans Covid status: [] Flu vaccine: Tdap vaccine:declined Rhogam: na LARC form signed: declined movement and labor precautions reviewed. Problem list reviewed and updated with the most current plan of care details and appropriate orders placed. Relevant counseling for the gestational age provided. Continue routine care and follow up unless otherwise noted in visit notes/problem list details OB Flowsheet Initial Weight: 142 lb Date <del>?</del> EGA Weight BP Urine Prot <del>?</del> Glucose FHR FuHt Pres Dilation <del>?</del> Effaced St Visit Note 05/18/23 <del>?</del> 8w 0d 142 lb 8 oz (+8 oz) 117/73 <del>?</del> 163 <del>?</del> LC- CRL 13.5mm con with LMP. unsure about nipt.OR nurse, radiology info given 06/01/23 <del>?</del> 10w 0d 139 lb 6 oz (-2 lb 10 oz) 114/79 Negative <del>?</del> Negative 160 <del>?</del> JV- no lof, vaginal bleeding, or dec fm . 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 07/26/23 <del>?</del> 17w 6d 145 lb 8 oz (+3 lb 8 oz) 122/70 Negative <del>?</del> Negative 161 <del>?</del> MH-Episode of blurred vision, numbness of lips and fingertips. [place] dizzy. RN her at [facility] and came up to office. Reviewed diet, fluids, carb intake etc. FM heard w/doppler. POC glucoe 118. 08/25/23 <del>?</del> 22w 1d 154 lb (+12 lb) 106/72 Negative <del>?</del> Negative 150 <del>?</del> SM- no vb lof good fm no regualr ctx 09/22/23 <del>?</del> 26w 1d 165 lb 8 oz (+23 lb 8 oz) 114/68 Negative <del>?</del> Negative 140 27 <del>?</del> KW- no vb/lof/ctx. good fm. LARC done. passed glucose. started PO iron. repeat cbc in 4 weeks 10/12/23 <del>?</del> 29w 0d 172 lb (+30 lb) 131/82 128/74 Negative <del>?</del> Negative 140 29 <del>?</del> KW- no vb/lof/ctx. good fm. having rib pain on and off with some episodes of dizziness. compression hose encouraged. pre e labs today 11/01/23 <del>?</del> 31w 6d 183 lb (+41 lb) 130/74 Negative <del>?</del> Negative 140 32 <del>?</del> SM- no vb lof good fm no regular ctx 11/18/23 <del>?</del> 34w 2d 192 lb (+50 lb) 113/72 Negative <del>?</del> Negative 144 35 <del>?</del> JV- no lof, vaginal bleeding, or dec fm. no complaints. inquiring about RSV vaccine. 11/30/23 <del>?</del> 36w 0d 195 lb (+53 lb) 195 lb (+53 lb) 118/75 Negative <del>?</del> Negative 135 36 Cephalic <del>?</del> Sm- no vb lof good fm no regular ctx. 12/05/23 <del>?</del> 36w 5d 198 lb 2 oz (+56 lb 2 oz) 116/76 Negative <del>?</del> Negative 130 36 Cephalic 0 <del>?</del> JV- gbs is neg. cx is closed/thick/high/ posterior. vtx on bedside ultrasound. 12/12/23 <del>?</del> 37w 5d 201 lb 2 oz (+59 lb 2 oz) 122/85 Negative <del>?</del> Negative 141 37 Cephalic 0 <del>?</del> JV- no lof, vaginal bleeding, or dec fm. cx is softer and more anterior than last visit. ROS Constitutional Constitutional: Reports systems reviewed and no addt'l complaints, except as documented Gastrointestinal Gastrointestinal: Denies bloating, constipation, cramping, diarrhea, nausea or vomiting Genitourinary Genitourinary: Reports other Details: Denies vaginal odor, vaginal bleeding, or vaginal discharge ; Denies difficulty urinating or flank pain NST FHR Rate Baby A Baseline: 140 Variability:: Moderate Accelerations:: 15 x 15 Decelerations:: None NST Reactive:: Yes FHR Category:: Category I Assessment & Plan (1) False labor after 37 completed weeks of gestation: COMMENT: Rom plus is negative 12/21/23 PLAN: reactive nst ok to dc to home with labor precautions. (2) Decreased movement affecting management of mother, antepartum: (3) Anemia: COMMENT: repeat CBC in 4 wks (30weeks) (4) Supervision of normal first : QUALIFIERS: Trimester: second trimester Qualified Code(s): Z34.02 - Encounter for supervision of normal first , second trimester COMMENT: PRR, , DAMARIS 12/28/23, boy Endy Rambo (5) : QUALIFIERS: Weeks of gestation: 37 weeks Qualified Code(s): Z3A.37 - 37 weeks gestation of COMMENT: anatomy nl, discussed genetic & carrier testing. declined afp. Charges/Coding Multi Select Codes Urinary/Genital Urinary/Genital CPT Codes: 62460-05 non-stress test Interp
== END 2023-12-21 12:00 | disposition home or self-care (01) ==
LOC: WPOUT 10:37 → WP 10:37
PROVIDERS: PCP Nurse Practitioner Primary Care; Referring Provider Obstetrics & Gynecology; Visit Provider Obstetrics & Gynecology
DX: O47.1 False labor at or after 37 completed weeks of gestation (principal); O36.8130 Decreased fetal movements, third trimester, not applicable or unspecified; O26.93 Pregnancy related conditions, unspecified, third trimester; Z3A.37 37 weeks gestation of pregnancy
CPT/HCPCS: 59025; 59050; 84112; 99221; G0378

== ENCOUNTER → 2023-12-27 | Outpatient (CLI) | payer OTHER, SELFPAY ==
[2023-12-27 16:07] LABS: Absolute Lymphocyte Count 1.58 X10^3/uL (0.83-4.51); Absolute Neutrophil Count 8.5 X10^3/uL (2.0-7.7); Basophil# 0.02 X10^3/uL; Basophil% 0.2 % (0-1); Eosinophil# 0.12 X10^3/uL; Eosinophils% 1.1 % (0-5); Hematocrit 37.2 % (37-47); Hemoglobin 11.9 g/dL (12.0-15.0); Lymphocyte # 1.58 X10^3/ul (0.83-4.51); Lymphocyte % 14.3 % (19-41); Mean Corpuscular Hgb 27.8 pg (27.0-32.0); Mean Corpuscular Volume 86.9 fL (81-99); Mean Platelet Vol. 10.1 fl (6.2-12.0); Monocyte# 0.68 X10^3/uL; Monocyte% 6.1 % (0-10); NRBC Flagged by Analyzer 0 % (0-5); Neutrophil # 8.54 X10^3/uL (2.7-7.7); Neutrophil % 77.1 % (47-70); Platelet Count 225 K/mm3 (150-450); RBC Distribution Width CV 14.7 % (11.6-14.6); RBC Distribution Width SD 46.5 fl (35.1-43.9); Red Blood Count 4.28 M/mm3 (4.2-5.4); White Blood Count 11.1 K/mm3 (4.4-11.0)
[2023-12-27 16:41] LABS: ALB/GLOB Ratio 0.7 RATIO (0.9-2.4); AST(SGOT) 20 U/L (15-37); Alanine Aminotransfer ALT/SGPT 18 U/L (13-56); Albumin, Serum 2.7 g/dL (3.2-5.0); Alkaline Phosphatase 143 U/L (45-117); Anion Gap 7 (5-15); BUN 7 mg/dL (7-18); BUN/Creat Ratio 11.8 RATIO (10-20); Calcium,Total 9.3 mg/dL (8.5-10.1); Chloride 108 mmol/L (98-107); Creatinine, Serum 0.59 mg/dL (0.55-1.02); EST Glomerular Filtration Rate 132 mL/min (>60); Est Glom Filt Rate - Afr Amer 160 mL/min (>60); Globulin 4.1 g/dL (2.2-4.2); Glucose 80 mg/dL (74-106); Protein, Total 6.8 g/dL (6.4-8.2); Sodium Level 138 mmol/L (136-145); Total Bilirubin < 0.10 mg/dL (0.20-1.00)
[2023-12-27 16:43] LABS: Protein, Urine (Random) 7.5 mg/dL (<11.9); Protein:Creat Ratio 163 mg/g CRE (0-200)
[2023-12-27 17:57] LABS: Protein, Urine (Random) 6.3 mg/dL (<11.9); Protein:Creat Ratio 223 mg/g CRE (0-200)
== END | disposition home or self-care (01) ==
PROVIDERS: PCP Nurse Practitioner Primary Care; Referring Provider Obstetrics & Gynecology; Visit Provider Obstetrics & Gynecology
DX: R51.9 Headache, unspecified (principal)
CPT/HCPCS: 36415; 80053; 82570; 84156; 85025

== ENCOUNTER → 2023-12-28 | Outpatient (CLI) | payer OTHER, SELFPAY ==
--- NOTE | 2023-12-28 14:22 | US_ITS ---
INDICATION: headache in EXAMINATION: Ultrasound US OB Limited 1 Or More Fetus TECHNIQUE: transabdominal pelvic ultrasound was performed. Grayscale, spectral waveform, and color flow Doppler evaluation of the adnexa. COMPARISON: 05/18/2023 LMP: Unknown. Beta-hCG: Unknown. Provided EGA: 40 weeks 0 days FINDINGS: INTRAUTERINE GESTATION(s): Single. ESTIMATED GESTATIONAL AGE: 39 weeks 1 day ESTIMATED DUE DATE (DAMARIS): 01/03/2024 HEART MOTION is 148 bpm. AMNIOTIC FLUID INDEX (ERJI): 19.1 cm ESTIMATED WEIGHT: 4065 g or 8 lbs. 15 oz. Percentile 82nd%. BIOPHYSICAL PROFILE (BPP): Not assessed. PRESENTATION: Cephalic PLACENTA: Anterior. There is no placenta previa or abruption. CERVIX: The cervix is not visualized. US/OB Limited With Biometrics IMPRESSION: Single live intrauterine of 39 weeks 1 day. Electronically Signed: Jevon Connelly MD at 17:01 EDT ,
== END | disposition home or self-care (01) ==
PROVIDERS: PCP Nurse Practitioner Primary Care; Referring Provider Obstetrics & Gynecology; Visit Provider Obstetrics & Gynecology
DX: O26.899 Other specified pregnancy related conditions, unspecified trimester (principal); R51.9 Headache, unspecified; D64.9 Anemia, unspecified; Z3A.39 39 weeks gestation of pregnancy
CPT/HCPCS: 76816

== ENCOUNTER 2023-12-29 06:57 | Inpatient (IN) | payer OTHER, SELFPAY ==
[2023-12-29] VITALS (43 sets, daily range): BP systolic 114–136; BP diastolic 61–87; PULSE 84–124; RESP 14–18; TEMP 36.1–37.1; O2SAT 97–100; BMI 34.7
[2023-12-29 06:55] LABS: ROM Internal Control Test YES-OK TO RESULT pt. (Internal QC); ROM Patient Test POSITIVE (Negative); Record Kit Lot#, ROM+ K1866
--- NOTE | 2023-12-29 08:11 | HP.PCM.OB_ITS ---
HPI - General General Date of Admission: 12/29/23 Date of Service: 12/29/23 HPI Narrative MARTHA WINN, is a 23 F 40.1 weeks who presents to unit with vaginal discharge. ROM + positive. plan for admission Maternal Data Information DAMARIS Calculator Estimated Delivery Date Method Current WG Current Estimate 12/28/23 LMP (Certain) 40w 1d Final DAMARIS: 12/28/23 Final DAMARIS Source: US >20 weeks Gestational age: 40.1 weeks [facility] Medical History Seasonal allergies Home Medications ?Medication ?Instructions ?Recorded ?Last Taken ?Type PNV 153-FA 400 mcg-om3 35 mg-dha 1 tab PO DAILY 05/13/23 12/29/23 History 25 mg-epa 5 mg-fish oil chew tablet ferrous sulfate 137 mg (45 mg 137 mg PO DAILY 10/12/23 12/28/23 History iron) tablet,extended release (Slow Fe) Allergy/AdvReac Type Severity Reaction Status Date / Time No Known Allergies Allergy Verified 12/29/23 06:33 Family History Grandmother Breast cancer, Onset Age: 50 Paternal Surgical History Bruno teeth extracted Social History adopted: No household members: spouse current occupational status: employed 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 pets and animals: No history of recent travel: Yes ([facility]- [place]) out of state: Yes out of country: No sexually active: Yes Smoking Status: Never smoker alcohol intake: current alcohol intake frequency: holidays/special occasions only details: not while substance use type: does not use well-balanced diet: daily or most days caffeine: No eating out: 1-3 times/week during the past year weight has: remained stable what type of physical activity do you participate in: walking frequency: 1-2 times per week duration: 15-30 minutes/day michaela/scientology: Quaker seatbelt use: always do you feel safe at home: Yes additional social history: Rambo- [employer] History 1 Elective abortions Hx Para 0 Spontaneous abortions Hx # Term Pregnancies Ectopic pregnancies Hx # Pregnancies Multiple births # of living children Visit Details Expected Delivery Route/Plan Labor Preferences- CB/BF classes: missed labor support person: Rambo labor intervention preferences: open to anything,okay with movement, massage, guided breathing, prayer, include Rambo please pain management options preferred: open to all cut cord/dad catch: yes : yes PP control planned: discussed possible routes of delivery and associated risks: [] special requests: [] Plans Covid status: [] Flu vaccine: Tdap vaccine:declined Rhogam: na LARC form signed: declined movement and labor precautions reviewed. Problem list reviewed and updated with the most current plan of care details and appropriate orders placed. Relevant counseling for the gestational age provided. Continue routine care and follow up unless otherwise noted in visit notes/problem list details OB Flowsheet Initial Weight: 142 lb Date -?-?-?-?-?-?-?-?-?-?-?-?- EGA Weight BP Urine Prot -?-?-?-?-?-?-?-?-?-?-?-?- Glucose FHR FuHt Pres Dilation -?-?-?-?-?-?-?-?-?-?-?-?- Effaced St Visit Note 05/18/23 -?-?-?-?-?-?-?-?-?-?-?-?- 8w 0d 142 lb 8 oz (+8 oz) 117/73 -?-?-?-?-?-?-?-?-?-?-?-?- 163 -?-?-?-?-?-?-?-?-?-?-?-?- LC- CRL 13.5mm c on with LMP. 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 06/29/23 -?-?-?-?-?-?-?-?-?-?-?-?- 14w 0d 141 lb 2 oz (-14 oz) 113/76 Negative -?-?-?-?-?-?-?-?-?-?-?-?- Negative 156 -?-?-?-?-?-?-?-?-?-?-?-?- JV-no lof, vagin al bleeding, or cramping. 07/26/23 -?-?-?-?-?-?-?-?-?-?-?-?- 17w 6d 145 lb 8 oz (+3 lb 8 oz) 122/70 Negative -?-?-?-?-?-?-?-?-?-?-?-?- Negative 161 -?-?-?-?-?-?-?-?-?-?-?-?- MH-Episode of bl urred vision, numbness of lips and fingertips. [place] dizzy. RN her at [facility] and came up to office. Reviewed diet, fluids, carb intake etc. FM heard w/doppler. POC glucoe 118. 08/25/23 -?-?-?-?-?-?-?-?-?-?-?-?- 22w 1d 154 lb (+12 lb) 106/72 Negative -?-?-?-?-?-?-?-?-?-?-?-?- Negative 150 -?-?-?-?-?-?-?-?-?-?-?-?- SM- no vb lof go od fm no regualr ctx 09/22/23 -?-?-?-?-?-?-?-?-?-?-?-?- 26w 1d 165 lb 8 oz (+23 lb 8 oz) 114/68 Negative -?-?-?-?-?-?-?-?-?-?-?-?- Negative 140 27 -?-?-?-?-?-?-?-?-?-?-?-?- KW- no vb/lof/ct x. good fm. LARC done. passed glucose. started PO iron. repeat cbc in 4 weeks 10/12/23 -?-?-?-?-?-?-?-?-?-?-?-?- 29w 0d 172 lb (+30 lb) 131/82 128/74 Negative -?-?-?-?-?-?-?-?-?-?-?-?- Negative 140 29 -?-?-?-?-?-?-?-?-?-?-?--?- KW- no vb/lof/ct x. good fm. having rib pain on and off with some episodes of dizziness. compression hose encouraged. pre e labs today 11/01/23 -?-?-?-?-?-?-?-?-?-?-?-?- 31w 6d 183 lb (+41 lb) 130/74 Negative -?-?-?-?-?-?-?-?-?-?-?-?- Negative 140 32 -?-?-?-?-?-?-?-?-?-?-?-?- SM- no vb lof go od fm no regular ctx 11/18/23 -?-?-?-?-?-?-?-?-?-?-?-?- 34w 2d 192 lb (+50 lb) 113/72 Negative -?-?-?-?-?-?-?-?-?-?-?-?- Negative 144 35 -?-?-?-?-?-?-?-?-?-?-?-?- JV- no lof, vagi nal bleeding, or dec fm. no complaints. inquiring about RSV vaccine. 11/30/23 -?-?-?-?-?-?-?-?--?-?-?-?- 36w 0d 195 lb (+53 lb) 195 lb (+53 lb) 118/75 Negative -?-?-?-?-?-?-?-?-?-?-?-?- Negative 135 36 Cephalic -?-?-?-?-?-?-?-?-?-?-?-?- Sm- no vb lof go od fm no regular ctx. 12/05/23 -?-?-?-?-?-?-?-?-?-?-?-?- 36w 5d 198 lb 2 oz (+56 lb 2 oz) 116/76 Negative -?-?-?-?-?-?-?-?-?-?-?-?- Negative 130 36 Cephalic 0 -?-?-?-?-?-?-?-?-?-?-?-?- JV- gbs is neg. cx is closed/thick/high/ posterior. vtx on bedside ultrasound. 12/12/23 -?-?-?-?-?-?-?-?-?-?-?-?- 37w 5d 201 lb 2 oz (+59 lb 2 oz) 122/85 Negative -?-?-?-?-?-?-?-?-?-?-?--?- Negative 141 37 Cephalic 0 -?-?-?-?-?-?-?-?-?-?-?-?- JV- no lof, vagi nal bleeding, or dec fm. cx is softer and more anterior than last visit. 12/22/23 -?-?-?-?-?-?-?-?-?-?-?-?- 39w 1d 203 lb (+61 lb) 132/79 Negative -?-?-?-?-?-?-?-?-?-?-?-?- Negative 140 40 Cephalic 0 .5 -?-?-?-?-?-?-?-?-?-?-?-?- SM- no vb lof go od fm no regualr ctx discussed FH change, if increasing consider US next week 12/27/23 -?-?-?-?-?-?-?-?-?-?-?-?- 39w 6d 203 lb 6 oz (+61 lb 6 oz) 123/83 Negative -?-?-?-?-?-?-?-?-?-?-?-?- Negative 143 40 Cephalic 0 .5 -?-?-?-?-?-?-?-?-?-?-?-?- JV- pt complains of a headache. ordering outpatient stat labs and an urgent ultrasound for growth. bp is not elevated. will call with results. NST FHR Rate Baby A Baseline: 135 Variability:: Moderate Accelerations:: 15 x 15 Decelerations:: None NST Reactive:: Yes FHR Category:: Category I Uterine Activity:: irregular ROS Constitutional Constitutional: Denies change in weight, fatigue, fever(s), headache(s), poor appetite or weakness Eyes Eyes: Denies blurry vision, change in vision, floaters, seeing flashes or spots in vision ENT HEENT: Denies dizziness, headache(s), loss taste/smell or sore throat Cardiovascular Cardiovascular: Denies chest pain, dizziness, dyspnea, irregular heart rhythm, lightheadedness, palpitations or rapid heart rate Respiratory/Chest Respiratory/Chest: Denies change in mental status, chest tightness, cough, dyspnea or breast pain Gastrointestinal Gastrointestinal: Denies anorexia, chewing difficulty, constipation, diarrhea or weight changes Genitourinary Genitourinary: Denies difficulty urinating, dysuria, flank pain, genital pain, urinary frequency or urinary urgency Musculoskeletal Musculoskeletal: Denies back pain, difficulty walking, extremity pain, joint pain, muscle cramps or muscle weakness Integumentary Integumentary: Denies lesions or unusual bruising Neurologic Neurologic: Denies abnormal movements, abnormal speech, dizziness, numbness, seizure-like activity, syncope or weakness Psychiatric Psychiatric: Denies behavioral changes, change in appetite, confusion, depression, homicidal ideation, suicidal ideation or suicidal thoughts Endocrine Endocrinology: Denies excessive sweating, polydipsia or polyuria Hematologic/Lymphatic Hematologic/Lymphatic: Denies anemia Allergic/Immunologic Allergic/Immunologic: Denies itchy eyes, lip swelling, throat swelling, tongue swelling or wheezing Vital Signs Vital Signs Vital Signs: 12/29/23 06:11 12/29/23 06:11 12/29/23 06:16 Temperature Temperature Source Pulse Rate 103 H 113 H Respiratory Rate Blood Pressure BP Systolic BP Diastolic Pulse Ox 98 12/29/23 06:16 12/29/23 06:17 12/29/23 06:17 Temperature Temperature Source Pulse Rate 111 H Respiratory Rate Blood Pressure 130/82 H BP Systolic 130 BP Diastolic 82 Pulse Ox 98 12/29/23 06:31 12/29/23 06:31 12/29/23 07:48 Temperature Temperature Source Pulse Rate 103 H Respiratory Rate Blood Pressure 124/81 H 122/77 H BP Systolic 124 122 BP Diastolic 81 77 Pulse Ox 12/29/23 07:48 12/29/23 07:48 12/29/23 07:48 Temperature Temperature Source Tympanic Pulse Rate 97 Respiratory Rate 15 Blood Pressure BP Systolic BP Diastolic Pulse Ox 12/29/23 07:48 12/29/23 07:48 12/29/23 07:56 Temperature 98.8 F Temperature Source Pulse Rate 93 Respiratory Rate Blood Pressure BP Systolic BP Diastolic Pulse Ox 97 12/29/23 07:56 12/29/23 08:01 12/29/23 08:01 Temperature Temperature Source Pulse Rate 89 Respiratory Rate Blood Pressure BP Systolic BP Diastolic Pulse Ox 98 99 Weight Weight: 202 lb 3.2 oz Body Mass Index (BMI) 34.7 Physical Exam Const alert, oriented x3 and no apparent distress General Appearance: cooperative Orientation / Consciousness: awake HEENT normocephalic Neck full ROM Lymph Lymphatic: no lymphadenopathy noted Chest inspection of chest normal Resp normal respiratory effort and normal air movement Effort and Inspection: able to speak in complete sentences and symmetric chest movement GI soft to palpation and non-tender Inspection: gravid Palpation: soft; Negative for tender external exam normal Back/Spine normal to inspection Extremity normal to inspection and full ROM Skin no rashes or lesions noted Psych mental status grossly normal Appearance: grossly normal Speech: normal speech Labs Labs Labs: Blood Type A POSITIVE Antibody Screen NEGATIVE Hct 37.2 % (37-47) Hgb 11.9 g/dL (12.0-15.0) L Obstetrics Ultrasound Syphilis Total Ab Non-reactive Rubella IgG Antibody Reactive (Nonreactive) Hep Bs Antigen Non-Reactive (Nonreactive) Hepatitis C Antibody Non-Reactive (Nonreactive) Chlamydia DNA (QUETA) Negative (Negative) N.gonorrhoeae DNA (QUETA) Negative (Negative) HIV 1&2 Antibody Non-Reactive (Nonreactive) Glucose 1 Hr 50 gm 108 mg/dL (70-140) Assessment & Plan (1) SROM (spontaneous rupture of membranes): PLAN: Patient presents with SROM, plan expectant management for , pitocin/AROM PRN if needed. Will give 6 hours to determine if patient will start brandi Pain management: plans epidural. GBS negative. Management of any complications: none I have reviewed the [facility] and made any clinically relevant updates. Dr Ferreira aware of above assessment and agrees with plan. (2) Headache in : (3) False labor after 37 completed weeks of gestation: COMMENT: Rom plus is negative 12/21/23 (4) Decreased movement affecting management of mother, antepartum: (5) Anemia: COMMENT: repeat CBC in 4 wks (30weeks) (6) Supervision of normal first : QUALIFIERS: Trimester: second trimester Qualified Code(s): Z34.02 - Encounter for supervision of normal first , second trimester COMMENT: PRR, , DAMARIS 12/28/23, boy Endy Rambo (7) : QUALIFIERS: Weeks of gestation: 39 weeks Qualified Code(s): Z3A.39 - 39 weeks gestation of COMMENT: anatomy nl, discussed genetic & carrier testing. declined afp. Charges/Coding Multi Select Codes Urinary/Genital Urinary/Genital CPT Codes: No Charge
[2023-12-29 11:20] LABS: Absolute Lymphocyte Count 1.24 X10^3/uL (0.83-4.51); Absolute Neutrophil Count 8.1 X10^3/uL (2.0-7.7); Basophil# 0.03 X10^3/uL; Basophil% 0.3 % (0-1); Eosinophil# 0.05 X10^3/uL; Eosinophils% 0.5 % (0-5); Hematocrit 35.7 % (37-47); Hemoglobin 11.3 g/dL (12.0-15.0); Lymphocyte # 1.24 X10^3/ul (0.83-4.51); Lymphocyte % 12.3 % (19-41); Mean Corp Hgb Conc 31.7 g/dL (32-36); Mean Corpuscular Hgb 27.2 pg (27.0-32.0); Mean Platelet Vol. 10.2 fl (6.2-12.0); Monocyte# 0.49 X10^3/uL; Monocyte% 4.9 % (0-10); NRBC Flagged by Analyzer 0 % (0-5); Neutrophil # 8.13 X10^3/uL (2.7-7.7); Neutrophil % 80.8 % (47-70); Platelet Count 201 K/mm3 (150-450); RBC Distribution Width CV 14.7 % (11.6-14.6); RBC Distribution Width SD 46.7 fl (35.1-43.9); Red Blood Count 4.15 M/mm3 (4.2-5.4); White Blood Count 10.1 K/mm3 (4.4-11.0)
[2023-12-29 12:04] LABS: Syphilis Antibodies Non-reactive
--- NOTE | 2023-12-29 12:54 | PN_ITS ---
Progress Note Coping well with contractions current tracing: FHT: 125 Moderate variability reactive no decelerations category I tracing [place]: irregular Contractions Membranes: AROM at 0515 SVE 1/70/-2 per nursing A/P: Continue with position changes Start pitocin per protocol Epidural per anesthesia GBS neg Anticipate Dr Caraballo aware of above assessment and agrees with plan of care Assessment & Plan Assessment/Plan (1) SROM (spontaneous rupture of membranes): (2) Headache in : (3) False labor after 37 completed weeks of gestation: (4) Decreased movement affecting management of mother, antepartum: (5) Anemia: (6) Supervision of normal first : QUALIFIERS: Trimester: second trimester Qualified Code(s): Z34.02 - Encounter for supervision of normal first , second trimester (7) : QUALIFIERS: Weeks of gestation: 39 weeks Qualified Code(s): Z3A. 39 - 39 weeks gestation of Multi Select Codes Urinary/Genital Urinary/Genital CPT Codes: No Charge
[2023-12-29] MEDS: Lactated Ringers 1,000 ML 50 ML IV (13:05)
[2023-12-29] MEDS: Oxytocin 15 Units/NS 250ml 15 UNITS/250 ML IV.SOLN 2 UNITS IV (13:05)
--- NOTE | 2023-12-29 16:03 | PCM.PN.BLA ---
Progress Note comfortable with epidural current tracing: FHT: 140 Moderate variability reactive no decelerations category I tracing [place]: 2-4 Contractions Membranes:remains clear SVE:unchanged A/P: Continue with position changes Titrate pitocin per protocol Epidural per anesthesia GBS neg Anticipate Dr Caraballo aware of above assessment and agrees with plan of care Assessment & Plan Assessment/Plan (1) SROM (spontaneous rupture of membranes): (2) Headache in : (3) False labor after 37 completed weeks of gestation: (4) Decreased movement affecting management of mother, antepartum: (5) Anemia: (6) Supervision of normal first : QUALIFIERS: Trimester: second trimester Qualified Code(s): Z34.02 - Encounter for supervision of normal first , second trimester (7) : QUALIFIERS: Weeks of gestation: 39 weeks Qualified Code(s): Z3A.39 - 39 weeks gestation of Multi Select Codes Urinary/Genital Urinary/Genital CPT Codes: No Charge
--- NOTE | 2023-12-29 16:11 | PCM.PN.BLA ---
Progress Note Coping well with contractions current tracing: FHT: 135 Moderate variability reactive no decelerations category I tracing [place]: 2-3.5 Contractions Membranes:additional bag ruptured SVE:1.5/60/-2 A/P: Continue with position changes Titrate pitocin per protocol Epidural per anesthesia GBS neg Anticipate Dr Caraballo aware of above assessment and agrees with plan of care Assessment & Plan Assessment/Plan (1) SROM (spontaneous rupture of membranes): (2) Headache in : (3) False labor after 37 completed weeks of gestation: (4) Decreased movement affecting management of mother, antepartum: (5) Anemia: (6) Supervision of normal first : QUALIFIERS: Trimester: second trimester Qualified Code(s): Z34.02 - Encounter for supervision of normal first , second trimester (7) : QUALIFIERS: Weeks of gestation: 39 weeks Qualified Code(s): Z3A.39 - 39 weeks gestation of Multi Select Codes Urinary/Genital Urinary/Genital CPT Codes: No Charge
[2023-12-29] MEDS: fentaNYL-bupivacaine (epidural) 100 ML BAG EPIDURAL ×2 (18:47→23:12)
[2023-12-29] MEDS: Ondansetron 4 MG/2 ML Vial IV (19:35)
[2023-12-29] MEDS: Lactated Ringers 1,000 ML 200 ML IV (19:38)
--- NOTE | 2023-12-29 23:29 | PCM.PN.BLA ---
Progress Note comfortable with epidural current tracing: FHT: 115 Moderate variability reactive no decelerations category I tracing [place]: 2-3minutes Contractions [id number] Membranes:remains clear SVE:3/-1 A/P: Continue with position changes Titrate pitocin per protocol Epidural per anesthesia GBS neg Plan SVE q 4 hours due to rupture time Anticipate Dr Caraballo aware of above assessment and agrees with plan of care Assessment & Plan Assessment/Plan (1) SROM (spontaneous rupture of membranes): (2) Headache in : (3) False labor after 37 completed weeks of gestation: (4) Decreased movement affecting management of mother, antepartum: (5) Anemia: (6) Supervision of normal first : QUALIFIERS: Trimester: second trimester Qualified Code(s): Z34.02 - Encounter for supervision of normal first , second trimester (7) : QUALIFIERS: Weeks of gestation: 39 weeks Qualified Code(s): Z3A.39 - 39 weeks gestation of Multi Select Codes Urinary/Genital Urinary/Genital CPT Codes: No Charge
[2023-12-30] VITALS (42 sets, daily range): BP systolic 106–145; BP diastolic 56–77; PULSE 88–117; RESP 16–18; TEMP 36.1–37; O2SAT 97–99
[2023-12-30] MEDS: LACTATED RINGERS 500 ML 999 ML IV (00:08)
--- NOTE | 2023-12-30 02:57 | PCM.PN.BLA ---
Progress Note comfortable with epidural-pushing with contractions current tracing: FHT: 135 Moderate variability reactive occasional decelerations category II tracing [place]: 2-3 minute Contractions Membranes: remains clear SVE:10/100/+1 A/P: Continue with position changes Titrate pitocin per protocol Epidural per anesthesia GBS neg Anticipate Dr Caraballo aware of above assessment and agrees with plan of care Assessment & Plan Assessment/Plan (1) SROM (spontaneous rupture of membranes): (2) Headache in : (3) False labor after 37 completed weeks of gestation: (4) Decreased movement affecting management of mother, antepartum: (5) Anemia: (6) Supervision of normal first : QUALIFIERS: Trimester: second trimester Qualified Code(s): Z34.02 - Encounter for supervision of normal first , second trimester (7) : QUALIFIERS: Weeks of gestation: 39 weeks Qualified Code(s): Z3A.39 - 39 weeks gestation of Multi Select Codes Urinary/Genital Urinary/Genital CPT Codes: No Charge
[2023-12-30] MEDS: Lactated Ringers 1,000 ML 200 ML IV (03:02)
[2023-12-30] MEDS: Ondansetron 4 MG/2 ML Vial IV (03:05)
[2023-12-30] MEDS: fentaNYL-bupivacaine (epidural) 100 ML BAG EPIDURAL (04:41)
--- NOTE | 2023-12-30 05:37 | PN_ITS ---
Progress Note comfortable with epidural- Pushing x 3 hours. Large baby anticipated. Patient requesting kiwi assistance for maternal exhaustion. Dr Segal notified. current tracing: FHT: 135 Moderate variability reactive occasional variable decelerations with pushing. Overall reassuring [place]: 2-3 Contractions Membranes:remains clear SVE:10 and pushing well reviewed tracing abnormalities since last note: collaboration with Dr Segal at this time for patient request for kiwi assistance. A/P: Continue with position changes Titrate pitocin per protocol Epidural per anesthesia GBS neg Anticipate Dr Caraballo aware of above assessment and agrees with plan of care Assessment & Plan Assessment/Plan (1) Vaginal delivery: (2) SROM (spontaneous rupture of membranes): (3) Headache in : (4) Anemia: (5) Supervision of normal first : QUALIFIERS: Trimester: second trimester Qualified Code(s): Z34.02 - Encounter for supervision of normal first , second trimester (6) : QUALIFIERS: Weeks of gestation: 39 weeks Qualified Code(s): Z3A.39 - 39 weeks gestation of Multi Select Codes Urinary/Genital Urinary/Genital CPT Codes: No Charge
--- NOTE | 2023-12-30 05:41 | PCM.DC ---
Discharge Instructions Diet Discharge Diet: No restrictions Activity Discharge Activity: Return to Normal Activity May resume sexual activity in: 6-8 weeks Dressing / Incision Call your doctor if you observe: Fever of 101 or Higher, Coldness, Increased Pain, Numbness or Tingling, Change in Color, Inability to urinate, Inability to have a bowel movement, Using more than 1 pad per hour, Shortness of breath, Dizziness, Fainting spells, Swelling in the ankles, Chest pain, Increased palpitations (irregular heartbeat), Calf discomfort and Uncontrolled pain Follow Up Care Please Follow Up With: Binta Luna CNM When: Please call the office to schedule your follow up appointment in 6 weeks. If you had high blood pressure please call to schedule an appointment in 2 weeks. Test Results: Test results from this visit will be discussed in further detail at your follow-up appointment, if applicable. Discharge Plan Admission Admit Date/Time: 12/29/23 06:57 Attending Provider: Binta Luna Primary Care Provider: Sonam Martinez NP Discharge Orders/Prescriptions Prescriptions: No Action PNV no.[id number] 400 mcg-35 mg- 25 mg-5 mg tablet,chewable 1 tab PO DAILY Slow Fe 137 mg (45 mg iron) tablet extended release 137 mg PO DAILY Referrals / Follow Up: Sonam Martinez NP, [employer] [Primary Care Provider] -
[2023-12-30] MEDS: Oxytocin 15 Units/NS 250ml 15 UNITS/250 ML IV.SOLN 999 UNITS IV (05:42)
[2023-12-30] MEDS: Methylergonovine 0.2 MG/ML Ampul IM (05:43)
--- NOTE | 2023-12-30 05:49 | OP.PCM_ITS ---
Assessment & Plan (1) SROM (spontaneous rupture of membranes): (2) Headache in : (3) Anemia: COMMENT: repeat CBC in 4 wks (30weeks) (4) Supervision of normal first : QUALIFIERS: Trimester: second trimester Qualified Code(s): Z34.02 - Encounter for supervision of normal first , second trimester COMMENT: PRR, , DAMARIS 12/28/23, boy Endy Rambo (5) : QUALIFIERS: Weeks of gestation: 39 weeks Qualified Code(s): Z3A.39 - 39 weeks gestation of COMMENT: anatomy nl, discussed genetic & carrier testing. declined afp. Maternal Data Information DAMARIS Calculator Estimated Delivery Date Method Current WG Current Estimate 12/28/23 LMP (Certain) 40w 2d Gestational age: 40 weeks 2 days Vaginal Delivery Maternal Presentation Maternal Presentation: Active Labor and Spontaneous Rupture of Membranes Type of Induction: Pitocin Operative Information Date of Procedure: 12/30/23 Pre-Operative Diagnosis: 23 y/o @ 40 weeks 2 days, maternal exhaustion and terminal bradycardia Post-Operative Diagnosis: 23 y/o @ 40 weeks 2 days, maternal exhaustion and terminal bradycardia Surgery / Procedure Performed: Vacuum Assisted Vaginal Delivery Type of Anesthesia: Epidural Drain: Blanchard to straight drain Estimated Blood Loss: 500cc Time of Delivery: 05:24 Findings Description of Procedure: Details of delivery: This is a 23 year old woman who was admitted to labor and delivery for SROM. The decision was made to perform a vacuum extraction due to pushing for 3 hours and terminal bradycardia. The risk benefits and alternatives of the pr ocedure were discussed with the patient and verbal consent was obtained. The infant was noted to be at a +3 station, the cervix was completely dilated. The infant's head was noted to be in the right occiput anterior presentation. The vacuum was placed in the correct placement in front of the posterior fontanelle. This was confirmed digitally. With the patient's next contraction, the vacuum was inflated and a gentle downward pressure was used to assist with bringing the baby's head to a +3 station. With 2 pull and 0 pop offs. The head was delivered atraumatically. No nuchal cord was noted. The anterior shoulder followed by the posterior shoulder were delivered without difficulty. The infant was handed off to the patient's chest. The was found to be vigorous and crying and moving of all 4 extremities. The mouth and nares were bulb suctioned. After 60 second delay the cord was clamped and cut and the was handed off to the awaiting nurses for routine assessment. The placenta was delivered with gentle traction and uterine massage. Inspection of the vagina cervix and perineum was performed. There were no lacerations to the vagina or to the cervix. The peritoneum was found to have a 2nd degree perineal laceration. The perineal laceration was closed using a 2-0 Vicryl in the usual sterile fashion. The patient tolerated the procedure well sponge lap and needle counts were correct x2 and she is now recovering in stable condition. baby boy Endy Presentation: Vertex Amniotic Membrane Rupture Type: Spontaneous Amniotic Fluid Description: Clear and Moderate meconium Placental Delivery Description: Spontaneous Placenta Disposition: [facility] Cord Vessel Description: 3 Vessels Cord Entanglement: None Cord Gases: ABG and VBG Infant A Gender: Male (1 minute): 9 (5 minute): 10 Delayed Cord Clamping: Yes Post Vaginal Delivery Medications Given After Delivery: IV Pitocin and IM [place] Episiotomy Description: Right Mediolateral Laceration: 2nd degree Complication Complications: None Multi Select Codes Urinary/Genital Urinary/Genital CPT Codes: 14386 Vaginal Delivery [facility]
[2023-12-30] MEDS: Oxytocin 15 Units/NS 250ml 15 UNITS/250 ML IV.SOLN 83 UNITS IV (06:10)
[2023-12-30] MEDS: Ibuprofen 600 MG Tablet PO ×2 (15:53→22:36)
[2023-12-30] MEDS: Acetaminophen 500 MG Tablet 1000 MG PO (17:43)
[2023-12-31] VITALS (7 sets, daily range): BP systolic 108–130; BP diastolic 51–74; PULSE 80–98; RESP 16; TEMP 36.3–36.7; O2SAT 98–100
[2023-12-31] MEDS: Acetaminophen 500 MG Tablet 1000 MG PO ×4 (00:12→21:08)
[2023-12-31] MEDS: Benzocaine/Lanolin/Aloe Vera 85 GM Spray 1 SPRAY TOPICAL (00:12)
[2023-12-31] MEDS: Ibuprofen 600 MG Tablet PO ×4 (04:18→23:07)
--- NOTE | 2023-12-31 08:19 | PCM.PN.OB ---
Subjective Subjective Patient doing well without complaints. Tolerating PO. Ambulating and voiding without difficulty. feeding well. Denies chest pain, shortness of breath, calf pain/swelling, fevers, chills, lightheadedness. Objective Data Objective Data Vital Signs: Vital Signs Temp Pulse Resp BP Pulse Ox O2 Del Method 98.0 F 80 16 108/51 L 98 Room Air 12/31/23 04:11 12/31/23 04:13 12/31/23 04:11 12/31/23 04:13 12/31/23 04:11 12/31/23 04:11 Oxygen Delivery Method Room Air Weight: 202 lb 3.2 oz Body Mass Index (BMI) 34.7 Intake & Output: Intake and Output for Last 24 Hours 12/29/23 12/30/23 12/31/23 23:59 23:59 23:59 Intake Total 425.33 / 425.33 2603.33 / 2603.33 Output Total 600 / 600 3050 / 3050 Balance -174.67 / -174.67 -446.67 / -446.67 Lab / Micro Data 12/29/23 11:00 ROS Constitutional Constitutional: Reports systems reviewed and no addt'l complaints, except as documented Cardiovascular Cardiovascular: Reports systems reviewed and no addt'l complaints, except as documented Respiratory/Chest Respiratory/Chest: Reports systems reviewed and no addt'l complaints, except as documented Gastrointestinal Gastrointestinal: Reports systems reviewed and no addt'l complaints, except as documented Physical Exam Const alert, oriented x3 and no apparent distress HEENT Head and Scalp: atraumatic Resp normal respiratory effort GI soft to palpation and non-tender Bimanual Exam - Vag & Uterus: uterus non-tender Uterus Palpation: uterus fundus firm (below Umbilicus) Assessment & Plan (1) Vaginal delivery: COMMENT: JV/KW PROM VAVD boy 40.2 PLAN: Plan s/p PPD # 1 1. routine post delivery care 2. breast feeding- support given 3. rh positive 4. rubella immune
[2023-12-31] MEDS: Senna/Docusate Sodium 1 Tablet PO (15:20)
[2024-01-01 01:05] VITALS: PULSE 90; O2SAT 98
[2024-01-01 01:06] VITALS: BP 107/55; PULSE 87
[2024-01-01 01:15] VITALS: BP 107/55; PULSE 94; RESP 16; TEMP 36.4; O2SAT 98
[2024-01-01] MEDS: Acetaminophen 500 MG Tablet 1000 MG PO (04:55)
[2024-01-01] MEDS: Ibuprofen 600 MG Tablet PO (05:44)
--- NOTE | 2024-01-01 07:35 | PCM.PN.OB ---
Subjective Subjective Patient doing well without complaints. Tolerating PO. Ambulating and voiding without difficulty. feeding well. Denies chest pain, shortness of breath, calf pain/swelling, fevers, chills, lightheadedness. Objective Data Objective Data Vital Signs: Vital Signs Temp Pulse Resp BP Pulse Ox O2 Del Method 97.5 F L 94 16 107/55 L 98 Room Air 01/01/24 01:15 01/01/24 01:15 01/01/24 01:15 01/01/24 01:15 01/01/24 01:15 01/01/24 01:15 Oxygen Delivery Method Room Air Weight: 202 lb 3.2 oz Body Mass Index (BMI) 34.7 Intake & Output: Intake and Output for Last 24 Hours 12/30/23 12/31/23 01/01/24 23:59 23:59 23:59 Intake Total 2603.33 / 2603.33 Output Total 3050 / 3050 Balance -446.67 / -446.67 Lab / Micro Data 12/29/23 11:00 ROS Constitutional Constitutional: Reports systems reviewed and no addt'l complaints, except as documented Cardiovascular Cardiovascular: Reports systems reviewed and no addt'l complaints, except as documented Respiratory/Chest Respiratory/Chest: Reports systems reviewed and no addt'l complaints, except as documented Gastrointestinal Gastrointestinal: Reports systems reviewed and no addt'l complaints, except as documented Physical Exam Const alert, oriented x3 and no apparent distress HEENT Head and Scalp: atraumatic Resp normal respiratory effort GI soft to palpation and non-tender Bimanual Exam - Vag & Uterus: uterus non-tender Uterus Palpation: uterus fundus firm (below Umbilicus) Assessment & Plan (1) Vaginal delivery: COMMENT: JV/KW PROM VAVD boy 40.2 PLAN: Plan s/p PPD # 2 1. routine post delivery care 2. breast feeding- support given 3. rh positive 4. rubella immune
[2024-01-01 08:30] VITALS: BP 113/61; PULSE 84; PULSE 86; RESP 16; TEMP 36.6; O2SAT 98
[2024-01-01] MEDS: Senna/Docusate Sodium 1 Tablet PO (09:46)
== END 2024-01-01 11:25 | disposition home or self-care (01) | DRG 807 ==
LOC: WPOUT 07:12 → WP 07:49
PROVIDERS: Obstetrics & Gynecology; Admitting Provider Advanced Practice Midwife; PCP Nurse Practitioner Primary Care; Referring Provider Advanced Practice Midwife; Visit Provider Advanced Practice Midwife
DX: O42.92 Full-term premature rupture of membranes, unspecified as to length of time between rupture and onset of labor (principal); Z37.0 Single live birth; D64.9 Anemia, unspecified; O99.02 Anemia complicating childbirth; O36.8130 Decreased fetal movements, third trimester, not applicable or unspecified; O48.0 Post-term pregnancy; O70.1 Second degree perineal laceration during delivery; O75.81 Maternal exhaustion complicating labor and delivery; O76 Abnormality in fetal heart rate and rhythm complicating labor and delivery; Z79.899 Other long term (current) drug therapy; Z3A.40 40 weeks gestation of pregnancy
CPT/HCPCS: 59025; 59050; 84112; 85025; 86780; 86850; 86900; 86901; 99221; J7120; G0378; J2405

== ENCOUNTER → 2024-02-10 | Outpatient (CLI) | payer OTHER, SELFPAY ==
[2024-02-16 13:01] LABS: HPV Reflexed? NOT INDICATED
== END | disposition home or self-care (01) ==
LOC: LABSPEC 15:48
PROVIDERS: PCP Nurse Practitioner Primary Care; Referring Provider Obstetrics & Gynecology; Visit Provider Obstetrics & Gynecology
DX: Z12.4 Encounter for screening for malignant neoplasm of cervix (principal)
CPT/HCPCS: 88175; G0145

== ENCOUNTER 2025-02-12 12:30 | Outpatient (REF) | payer SELFPAY ==
[2025-02-12 12:30] VITALS: BP 115/70; PULSE 92; RESP 18; TEMP 37; O2SAT 98; BMI 26.9
--- NOTE | 2025-02-12 13:03 | EDS_ITS ---
HPI History of Present Illness Chief Complaint: Occup Expose Detail of Chief Complaint: Body fluid exposure/dirty needlestick Informant: patient Onset/Context/Timing Onset: Today and Hours Context: Sudden Onset Quality: Patient was stuck with dirty needle, blood Location: Finger right hand Current Severity: Gone Maximum Severity: Mild Worsened by: Initial needlestick Relieved by: Not applicable Associated Symptoms Associated Symptoms: Patient was double gloved. Narrative Narrative: Patient is a 24-year-old [id number] female who presents with needlestick dorsal surface of her right finger. She denies paresthesia, anesthesia motors. Hepatitis vaccine up-to-date. Source is known. Unknown if source has history of any blood-borne infectious diseases. Prior similar symptoms: No Recent Illness/Hospitalization: No PFSH PFSH Medical History Headache Seasonal allergies Home Medications Medication Instructions Recorded Last Taken Type PNV 153-FA 400 mcg-om3 35 mg-dha 1 tab PO DAILY pregna ncy 05/13/23 12/29/23 History 25 mg-epa 5 mg-fish oil chew tablet sennosides 25 mg tablet (Laxative 25 mg PO QDAY Unknown History (sennosides)) Allergy/AdvReac Type Severity Reaction Status Date / Time No Known Allergies Allergy Verified 02/12/25 12:32 Family History Grandmother Breast cancer, Onset Age: 50 Paternal Surgical History Adger teeth extracted Social History adopted: No household members: spouse number of children: 1 current occupational status: employed 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[employer] pets and animals: No history of recent travel: Yes ([facility]- [place]) out of state: Yes out of country: No sexually active: Yes Smoking Status: Never smoker alcohol intake: current alcohol intake frequency: holidays/special occasions only details: not while substance use type: does not use well-balanced diet: daily or most days caffeine: No eating out: 1-3 times/week during the past year weight has: remained stable what type of physical activity do you participate in: walking frequency: 1-2 times per week duration: 15-30 minutes/day michaela/rastafarian: Hinduism seatbelt use: always do you feel safe at home: Yes additional social history: [employer] Musculoskeletal Musculoskeletal: Denies arthralgias or myalgias Integumentary Denies rash Neurologic Neurologic: Denies paresthesias or weakness Hematologic/Lymphatic Hematologic/Lymphatic: Denies easy bleeding, easy bruising or lymphadenopathy EXAM Physical Exam Const Vital Signs: 02/12/25 12:30 02/12/25 13:00 Temperature 98.6 F Temperature Source Oral Pulse Rate 92 Respiratory Rate 18 Respiratory Effort Normal Non-Labored Respiratory Pattern Normal Blood Pressure 115/70 Blood Pressure Mean 85 Pulse Ox 98 Oxygen Delivery Method Room Air Positive well nourished and well developed General Appearance ED: well developed and NAD HEENT HEENT Narrative: HEENT grossly unremarkable. Eyes PERRL and EOMs intact bilaterally General Eye ED: Negative for scleral icterus Resp normal respiratory effort Cardio regular rate and regular rhythm Extremity Extremity Narrative: Evidence of needle stick dorsum finger right hand PIP joint. There is full active range of motion without discomfort. There is no evidence infection. There is no neurovascular compromise Neuro oriented x3 and CN's II-XII intact bilaterally Sensorium / Orientation: alert Psych mental status grossly normal Skin Skin Narrative: Jaskaran due to needlestick. MDM MDM MDM Narrative Medical decision making narrative: Blood/body fluid exposure. Protocol initiated. Blood from both exposed and source was ordered. [facility] Discharge Plan Triage Chief Complaint: Occup Expose ED Provider: Carson Arce Dx/Rx/DC Orders Clinical Impression: Exposure to blood or body fluid, Needle stick injury of finger of right hand Instructions: ED NEEDLE STICK Health Care Worker Prescriptions: No Action PNV no.[id number] 400 mcg-35 mg- 25 mg-5 mg tablet,chewable 1 tab PO DAILY Laxative (sennosides) 25 mg tablet 25 mg PO QDAY Primary Care Provider: Sonam Martinez NP [facility]: [facility]] - 3-5 Days Sonam Martinez NP, CONSULTANT RN-C [Primary Care Provider, Family Practice] Print Language: Sami Disposition Disposition: Home, Self Care
[2025-02-12 13:17] VITALS: BP 115/70; PULSE 92; RESP 18; TEMP 37; O2SAT 98
[2025-02-12 13:44] LABS: HIV Nonreactive (Nonreactive); Hepatitis B Surface Antigen Nonreactive (Nonreactive); Hepatitis C Antibody Nonreactive (Nonreactive)
--- OUTSIDE RECORDS SUMMARY | 2025-02-12 23:18 | XMS RPT_ITS | CCD ---
Author Organization [facility] Care Team Providers Care Community Case Manager Name Role Phone BOY WEBBER, MAGGI Moreno Primary Care Physician [phone] Care Physician, No Primary Primary Care Provider Unavailable Care Physician, No Primary Referring Provider Un available Ricardo ASCENCIO, SEWER BUILDER-C Nuvia Attending Provider [phone] TREVIN Mariscal Attending Provider [phone] Olivia Segal Attending Provider [phone] Juan SEWER BUILDER, SEWER BUILDER-C Sonam Primary Care Provider Care Physician, No Primary Primary Care Provider Unavailable Care Physician, No Primary Referring Provider Un available Ricardo ASCENCIO NP-C Nuvia Attending Provider [phone] TREVIN Mariscal Attending Provider [phone] Dr. Olivia Segal Attending Provider [phone] Juan SEWER BUILDER, SEWER BUILDER-C Sonam Primary Care Provider Juan SEWER BUILDER, SEWER BUILDER-C Sonam Referring Provider [phone] NO PRIMARY CAREMD Primary Care Unavailable OLIVIA ABDULLAHI Referring Unavailab BRETT Chase Attending Unavailable Binta Luna Referring Unavailable Juan ASCENCIO, Sonam Primary Care Unavailable Binta Luna Attending Unavailable Yaritza Mariscal Attending Unavailable Yaritza Mariscal Referring Unavailable Juan ASCENCIO, Sonam Primary Care Unavailable Yaritza Mariscal Referring Unavailable Care Physician, No Primary Primary Care Unava ilable Yaritza Mariscal Attending Unavailable Yaritza Mariscal Attending Unavailable Care Physician, No Primary Primary Care Unava ilable Care Physician, No Primary Referring Unava ilable Binta Luna Attending Unavailable Binta Luna Admitting Unavailable Jagual SEWER BUILDER, [facility] Primary Care Unavailable Binta Luna Referring Unavailable Moseley SEWER BUILDER, Nuvia Referring Unavailable Jagual SEWER BUILDER, [facility] Primary Care Unavailable Ricardo SEWER BUILDER, Nuvia Attending Unavailable Jagual SEWER BUILDER, [facility] Primary Care Unavailable Tracey Diaz Attending Unavailable Jagual SEWER BUILDER, [facility] Primary Care Unavailable Olivia Segal Attending Unavailabl e Olivia Segal Referring Unavailabl e Jagual SEWER BUILDER, [facility] Primary Care Unavailable Tracey Diaz Referring Unavailable Tracey Diaz Attending Unavailable Jagual SEWER BUILDER, [facility] Primary Care Unavailable Juan SEWER BUILDER, Sonam Referring Unavailable Olivia Segal Attending Unavailabl e Juan SEWER BUILDER, [facility] Primary Care Unavailable Jagual SEWER BUILDER, Sonam Referring Unavailable Tracey Diaz Attending Unavailable Jagual SEWER BUILDER, [facility] Primary Care Unavailable Juan SEWER BUILDER, Sonam Referring Unavailable Fortune SEWER BUILDER, [employer]els Attending Unavailable Binta Luna Referring Unavailable Juan SEWER BUILDER, [facility] Primary Care Unavailable Binta Luna Consulting Unavailable Tracey Diaz Attending Unavailable Binta Luna Admitting Unavailable Jagual SEWER BUILDER, [facility] Primary Care Unavailable Tracey Diaz Attending Unavailable Jagual SEWER BUILDER, [facility] Referring Unavailable Juan SEWER BUILDER, [facility] Primary Care Unavailable Care Physician, No Primary Referring Unava ilable Olivia Segal Attending Unavailabl e Jagual SEWER BUILDER, [facility] Primary Care Unavailable Olivia Collazo Attending Unavailable Jagual SEWER BUILDER, [facility] Primary Care Unavailable Olivia Segal Attending Unavailabl e Olivia Segal Referring Unavailabl e Jagual SEWER BUILDER, [facility] Primary Care Unavailable Tracey Diaz Attending Unavailable Tracey Diaz Referring Unavailable Jagual SEWER BUILDER, Sonam Referring Unavailable Juan SEWER BUILDER, [facility] Primary Care Unavailable Olivia Segal Attending Unavailabl e Juan SEWER BUILDER, [facility] Primary Care Unavailable Juan SEWER BUILDER, Sonam Referring Unavailable Tracey Diaz Attending Unavailable Juan SEWER BUILDER, [facility] Primary Care Unavailable Olivia Segal Attending Unavailabl e Olivia Segal Referring Unavailabl e Jagual SEWER BUILDER, [facility] Primary Care Unavailable Juan SEWER BUILDER, Sonam Referring Unavailable Tracey Diaz Attending Unavailable Juan SEWER BUILDER, [facility] Primary Care Unavailable Olivia Segal Attending Unavailabl e Olivia Segal Referring UnavailBinta Martin Attending Unavailable Jagual SEWER BUILDER, [facility] Primary Care Unavailable Jagual SEWER BUILDER, Sonam Referring Unavailable Juan SEWER BUILDER, Sonam Primary Care Unavailable Jagual SEWER BUILDER, Sonam Referring Unavailable Olivia Segal Attending Unavailabl e Juan SEWER BUILDER, [facility] Primary Care Unavailable Jagual SEWER BUILDER, Sonam Referring Unavailable Olivia Segal Attending Unavailabl e Jagual SEWER BUILDER, [facility] Primary Care Unavailable Jagual SEWER BUILDER, Sonam Referring Unavailable Binta Luna Attending Unavailable Juan SEWER BUILDER, [facility] Primary Care Unavailable Juan SEWER BUILDER, Sonam Referring Unavailable Tracey Diaz Attending Unavailable Juan SEWER BUILDER, [facility] Primary Care Unavailable Juan SEWER BUILDER, Sonam Referring Unavailable Olivia Segal Attending Unavaildasia e Ricardo SEWER BUILDERNuvia Attending Unavailable Jagual SEWER BUILDER, [facility] Primary Care Unavailable Jagual SEWER BUILDER, Sonam Referring Unavailable Ricardo SEWER BUILDER, Nuvia Attending Unavailable Care Physician, No Primary Referring Unava ilable Care Physician, No Primary Primary Care Unava ilable Jagual SEWER BUILDER, [facility] Primary Care Unavailable Olivia Segal Consulting Unavailabl e Evee Tami, Olivia Referring Unavailabl e Vande Tami, Olivia Attending Unavailabl e Jagual SEWER BUILDER, [facility] Primary Care Unavailable Olivia Segal Attending Unavaildasia e Olivia Segal Consulting Unavailabl e Evee Velmaria esther, Olivia Referring Unavailabl e Jagual SEWER BUILDER, [facility] Primary Care Unavailable Olivia Segal Referring Unavailabl e Evee Olivia Garrett Attending UnavailBinta Martin Attending Unavailable Allergies Allergy Classification Reported Allergen(s) Allergy Type Date of Onset Reaction(s) Facility (1 source) Unable to Assess Drug allergy (disorder) 05-10-2023 [facility] Repository Medications Current Medications Medication Drug Class(es) Dates [...] DAY, # 84 tab(s), 3 Refill(s), Pharmacy: [facility], 162.6, cm, 04/09/20 13:39:00 EST, Height, kg, 04/09/20 13:39:00 EST, Dosing Weight Start Date: 04/30/21 Status: Ordered lactobacillus rhamnosus oral capsule (1 source) Start: 09-03-2021 take 1 capsule by mouth once daily lactobacillus rhamnosus oral capsule Dose = 1 cap(s), Oral, qDay, # 30 cap(s), 0 Refill(s), Pharmacy: [facility], 162, cm, 09/03/21 8:45:00 EDT, Height Start Date: 09/03/21 Status: Ordered ondansetron 4 mg disintegrating oral tablet (3 sources) Serotonin-3 Receptor Antagonist Start: 05-18-2023 take 4 mg by mouth every eight hours Ondansetron Active 4 MG PO Q8H 30 May 18, 2023 1:00am Pnv No.520-Jx-Pj8-Dha-Epa -Fish (3 sources) Start: 05-13-2023 Pnv No.851-Ik-Za7-Dha-E pa-Fish Active TABLET PO May 13, 2023 1:00am Start: 05-13-2023 Pnv No.153-Fa- Mp4-Zzv-Xnx-Fish Active TABLET PO May 13, 2023 12:00am Tri-Sprintec oral tablet (1 source) Start: 04-30-2021 take 1 tablet by mouth once daily Tri-Sprintec oral tablet See Instructions, TAKE 1 TABLET EVERY DAY, # 84 tab(s), 3 Refill(s), Pharmacy: [facility], 162.6, cm, 04/09/20 13:39:00 EST, Height, kg, 04/09/20 13:39:00 EST, Dosing Weight Start Date: 04/30/21 Status: Ordered Problems Active Problems Problem Classification Problem Date Documented Date Episodic/Chronic Conditions associated with dizziness or vertigo (2 sources) Dizziness; Translations: [Dizziness and giddiness] 07-26-2023 Episodic Contraceptive and procreative management (2 sources) Oral contraception 04-30-2021 Episodic Deficiency and other anemia (2 sources) Anemia, unspecified; Translations: [Anemia, unspecified] Onset: 12-27-2023 Episodic Early or threatened labor (1 source) False labor at or after 37 completed weeks of gestation; Translations: [False labor at or after 37 completed weeks of gestation] Onset: 01-23-2024 Episodic Headache; including migraine (2 sources) Headache; including migraine; Translations: [Headache, unspecified] Onset: 01-16-2024 Other complications of (2 sources) Other specified related conditions, unspecified trimester; Translations: [Other specified related conditions, unspecified trimester] Onset: 01-11-2024 Episodic Other complications of (2 sources) Decreased movements, unspecified trimester, not applicable or unspecified; Translations: [Decreased movements, unspecified trimester, not applicable or unspecified] Onset: 12-12-2023 Episodic Other ear and sense organ disorders (2 sources) Impacted cerumen 04-10-2020 Episodic Other and delivery including normal (20 sources) Normal ; Translations: [Encounter for supervision of normal first , unspecified trimester] Onset: 06-03-2023 05-13-2023 Episodic Other screening for suspected conditions (not mental disorders or infectious disease) (1 source) Encounter for screening for malignant neoplasm of cervix; Translations: [Encounter for screening for malignant neoplasm of cervix] Onset: 03-02-2024 Episodic Residual codes; unclassified (2 sources) 39 weeks gestation of ; Translations: [39 weeks gestation of ] Onset: 12-27-2023 Episodic Residual codes; unclassified (2 sources) 37 weeks gestation of ; Translations: [37 weeks gestation of ] Onset: 12-12-2023 Episodic Residual codes; unclassified (1 source) 36 weeks gestation of ; Translations: [36 weeks gestation of ] Onset: 12-05-2023 Episodic Spondylosis; intervertebral disc disorders; other back problems (1 source) Dorsalgia, unspecified; Translations: [Dorsalgia, unspecified] Onset: 01-05-2024 Episodic Unclassified (2 sources) Patient encounter status 04-01-2020 Past or Other Problems Problem Classification Problem Date Documented Da te Episodic/Chronic Genitourinary symptoms and ill-defined conditions (1 source) Dysuria; Translations: [Dysuria] Onset: 07-26-2023 Episodic Immunizations and screening for infectious disease (1 source) Encounter for immunization; Translations: [Encounter for immunization] Onset: 11-01-2023 Episodic Other complications of (1 source) Decreased movements, third trimester, not applicable or unspecified; Translations: [Decreased movements, third trimester, not applicable or unspecified] Onset: 12-02-2023 Episodic Other lower respiratory disease (1 source) Pleurodynia; Translations: [Pleurodynia] Onset: 10-17-2023 Episodic Residual codes; unclassified (4 sources) Contact with and (suspected) exposure to potentially hazardous body fluids; Translations: [Exposure to body fluid] Onset: 06-29-2023 06-03-2023 Episodic Residual codes; unclassified (2 sources) 30 weeks gestation of ; Translations: [30 weeks gestation of ] Onset: 11-01-2023 Episodic Residual codes; unclassified (1 source) 29 weeks gestation of ; Translations: [29 weeks gestation of ] Onset: 10-12-2023 Episodic Residual codes; unclassified (1 source) 22 weeks gestation of ; Translations: [22 weeks gestation of ] Onset: 08-25-2023 Episodic Residual codes; unclassified (1 source) 14 weeks gestation of ; Translations: [14 weeks gestation of ] Onset: 06-29-2023 Episodic Residual codes; unclassified (1 source) 10 weeks gestation of ; Translations: [10 weeks gestation of ] Onset: 06-01-2023 Episodic Residual codes; unclassified (1 source) 8 weeks gestation of ; Translations: [8 weeks gestation of ] Onset: 05-18-2023 Episodic Results Test Name Value Interpretation Reference Range Facility PAP I-G w/rfx hrHPV-Aptimaon 02-16-2024 ADEQ Comment Normal . [facility] Comment on above: Order Comment: Speci men Comment: [id number] Comment: Source.............CervixSpecimen Comment: No. of containers..01 ThinPrep Vial Result Comment: Sati sfactory for evaluation. Endocervical and/or squamous metaplastic cells (endocervical component) are present. Performed By: #### L 7400.0353 ####[facility] [address] [place], [address] COMM . Normal . [facility] Comment on above: Order Comment: Speci men Comment: [id number] Comment: Source.............CervixSpecimen Comment: No. of containers..01 ThinPrep Vial Performed By: #### L 7400.0353 ####[facility] [address] [place], [place], [id number] COMMENT Comment Normal . [facility] Comment on above: Order Comment: Speci men Comment: [id number] Comment: Source.............CervixSpecimen Comment: No. of containers..01 ThinPrep Vial Result Comment: This liquid based ThinPrep(R) pap test was screened with the use of an image guided system. Performed By: #### L 7400.0353 ####[facility] [address] [place], [place], [id number] DIAG Comment Normal . [facility] Comment on above: Order Comment: Speci men Comment: [id number] Comment: Source.............CervixSpecimen Comment: No. of containers..01 ThinPrep Vial Result Comment: NEGA TIVE FOR INTRAEPITHELIAL LESION OR MALIGNANCY. Performed By: #### L 7400.0353 ####[facility] [address] [place], [place], [id number] HPV RFLX Comment Normal . [facility] Comment on above: Order Comment: Speci men Comment: [id number] Comment: Source.............CervixSpecimen Comment: No. of containers..01 ThinPrep Vial Result Comment: The HPV DNA reflex criteria were not met with this specimen result therefore, no HPV testing was performed. Performed at: [facility] [address] [place] [id number] Paddle Dyeing Machine Operator: Kassandra Bonilla PhD, Phone: [phone] Performed at: [address] [id number] Paddle Dyeing Machine Operator: Concepción Shah MD, Phone: [phone] Performed By: #### L 7400.0353 ####[facility] [address] [place], [address] PAPSMR Comment Normal . [facility] Comment on above: Order Comment: Speci men Comment: [id number] Comment: Source.............CervixSpecimen Comment: No. of containers..01 ThinPrep Vial Result Comment: The Pap smear is a screening test designed to aid in the detection of premalignant and malignant conditions of the uterine cervix. It is not a diagnostic procedure and should not be used as the sole means of detecting cervical cancer. Both false-positive and false-negative reports do occur. Performed By: #### L 7400.0353 ####[facility] [address] [place], [place], [id number] PERFORM Comment Normal . [facility] Comment on above: Order Comment: Speci men Comment: [id number] Comment: Source.............CervixSpecimen Comment: No. of containers..01 ThinPrep Vial Result Comment: Arely Juarez Solderer Barrel Ribs (ASCP) Performed By: #### L 7400.0353 ####[facility] [address] [place], [address] Senior Ios Software Engineer Office Visit Reporton 10-18-2024 Senior Ios Software Engineer Office Visit Report [facility] [address], [address] [place] [address] OFFICE VISIT Date of Service: 02/10/24 MR#: [id number] Acct: [id number] Name: MARTHA WINN Rep #: [id number] : 2000 Provider: Dr. Tracey chou MD Age/Sex: 23/F [place] [facility] [place]: Signed Intake Vital Signs 12/29/23 06:01 01/04/24 08:25 02/10/24 14:26 Height 5 ft 4 in 5 ft 4 in 5 ft 4 in Weight: 172 lb BMI 29.5 BP 120/74 Intake Visit Reasons: visit (obstetrics) Hris Administrator Required: No Is patient in pain?: No Feel stressed/tense/nervous /anxious/difficulty sleeping: not at all Allergies No Known Allergies Allergy (Verified 02/10/24 14:30) Medications ???Medication ???Instructions ???Recorded ???Confirmed ???Type PNV 153-FA 400 mcg-om3 35 mg-dha 1 tab PO DAILY 05/13/23 02/10/24 History 25 mg-epa 5 mg-fish oil chew tablet sennosides 25 mg tablet (Laxative 25 mg PO QDAY 02/10/24 02/10/24 History (sennosides)) PFSH Medical History Headache Seasonal allergies Surgical History [place] teeth extracted Family History Grandmother Breast cancer, Onset Age: 50 Paternal Social History (Updated 02/10/24 @ 14:32 by Nuvia Clark) adopted: No household members: spouse number of children: 1 current occupational status: employed 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 history of recent travel: Yes ([facility]- [place]) out of state: Yes out of country: No sexually active: Yes Smoking Status: Never smoker alcohol intake: current alcohol intake frequency: holidays/special occasions only details: not while substance use type: does not use well-balanced diet: daily or most days caffeine: No eating out: 1-3 times/week during the past year weight has: remained stable what type of physical activity do you participate in: walking frequency: 1-2 times per week duration: 15-30 minutes/day michaela/hoahaoism: Confucianism seatbelt use: always do you feel safe at home: Yes 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 Date Name GA/Weeks Outcome Route Bth Weight Gen Labor Lgth Anesthesia Del Locatn Provider FOB 12/30/23 Endy 40 live - full term vacuum Male epidural [facility] maria esther VelSamuel Delivery Date: 12/30/23 Last Updated by: Denisa Gastelum RN see problem list for complications Depression Screen PHQ-2/9 PHQ-2 Over the last 2 weeks, how often have you been bothered by any of the following problems? 1. Little interest or pleasure in doing things: not at all 2. Feeling down, depressed, or hopeless: not at all Total score: 0 Post HPI Routine Follow-Up: Details: MARTHA WINN is a 23 year old who presents for her post visit. Infant Feeding: Breast (pumping) Menses resumed: No [place] since delivery: No Emotional Support: Yes ROS Const Reports system reviewed and no additional complaints, except as documented GI Reports system reviewed and no additional complaints, except as documented, Denies bloating, Denies constipation, Denies nausea and Denies vomiting Reports system reviewed and no additional complaints, except as documented, Denies abnormal vaginal bleeding, Denies pelvic pain, Denies sexual dysfunction, Denies urinary incontinence, Denies urinary hesitancy, Denies urinary urgency and Denies vaginal discharge Skin/Breast Reports system reviewed and no additional complaints, except as documented and Reports as per HPI Psych Reports as per HPI Exam Const General: cooperative, healthy appearing, comfortable and no acute distress HENMT Head: normal to inspection Neck Neck: normal visual inspection and no lymphadenopathy Thyroid: thyroid normal Chest Breast inspection: normal inspection of the breasts and normal inspection of the axillae Breast palpation: normal palpation of the breasts and normal palpation of the axillae Resp Effort Inspection: normal respiratory effort GI Inspection: normal to inspection Palpation: soft, no hepatosplenomegaly and nontender General: bladder normal to palpation External Female Exam: normal external appearance and normal appearance of the urethra Urethra: normal appearance of the urethra Speculum Exam - Vagina: normal appearance of the vagina and normal vaginal discharge Speculum Exam - Cervix: normal appearance of the cervix Bimanual Exam- Vagina Uterus: (more content not included)... Normal [facility] MR/BMS.[facility] [address] [place] [address] OFFICE VISIT Date of Service: 01/03/24 MR#: [id number] Acct: [id number] Name: MARTHA WINN Rep #: [id number] : 2000 Provider: Jewels Nelson NP Age/Sex: 23/F [place] [facility] [place]: Signed Intake Vital Signs 12/29/23 06:01 01/04/24 08:25 Height 5 ft 4 in 5 ft 4 in Intake Visit Reasons: pumping assessment Chief Complaint: feeding assessment Accompanied by: Allergies No Known Allergies Allergy (Verified 12/29/23 06:33) : Yes [facility] Medical History (Updated 01/04/24 @ 00:02 by Gerhard Camacho) Headache Seasonal allergies Surgical History [place] teeth extracted Family History Grandmother Breast cancer, Onset Age: 50 Paternal Social History adopted: No household members: spouse current occupational status: employed 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 history of recent travel: Yes ([facility]- [place]) out of state: Yes out of country: No sexually active: Yes Smoking Status: Never smoker alcohol intake: current alcohol intake frequency: holidays/special occasions only details: not while substance use type: does not use well-balanced diet: daily or most days caffeine: No eating out: 1-3 times/week during the past year weight has: remained stable what type of physical activity do you participate in: walking frequency: 1-2 times per week duration: 15-30 minutes/day michaela/hoahaoism: Confucianism seatbelt use: always do you feel safe at home: Yes 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 Date Name GA/Weeks Outcome Route Bth Weight Gen Labor Lgth Anesthesia Del Locatn Provider FOB 12/30/23 Endy 40 live - full term vacuum Male epidural [employer] Van Flaherty Rambo Delivery Date: 12/30/23 Last Updated by: Denisa Gastelum RN see problem list for complications HPI HPI HPI: MARTHA WINN, is a 23 F who presents to the office today for feeding assessment. History provided by the patient. ROS ROS Const Constitutional: Denies fever(s) or lethargy : Denies nipple discharge Skin Skin/Breast: Denies breast pain (full, milk coming in ), breast skin changes or nipple discharge Details: was putting baby to breast in hospital, having difficulty latching, now is pumping and bottle feeding, patient pumping q 3 hours and getting 100 ml, baby taking about 60 ml per feed, taking bottles well Exam Assessment Baby Feeding History Is your baby latching onto the breast: No Supplements Supplement Type:: Expressed milk Frequency: q 3 hours Amount: 60 ml Breast Pumping Type of Breast Pump: Spectra Frequency: q 3 hours Amount: 100 ml Reason for supplements or pumping:: Maternal choice to pump and feed Goals Breast Feeding Goals: To provide as much breastmilk as possible Exam Const General: comfortable and no acute distress Orientation: alert and oriented x3 Resp Effort Inspection: normal respiratory effort Skin General: no rashes or lesions noted Psych Appearance: grossly normal Mental Status: mental status grossly normal Affect: normal affect Assessment and Plan Assessment and Plan (1) Care and examination of lactating mother: Plan: Educated on feeding on pumping, pumping schedule, paced bottle feeding, milk supply, milk storage and milk regulation. Follow up with PRN. Coding Level of Care Code 70384 PRVT COUNSELING INDIVID Diagnoses Care and examination of lactating mother Z39.1 Time Spent (min) 01/04/24 1303 Date Jewels Douglass Signature: Date (if applicable) CC: Normal [facility] Discharge Instructionon Discharge Instruction [facility] Medical Records Department [address] [place] [address] Instructions for Home/Discharge Instructions 12/30/23 0541 MR#: [id number] Acct: [id number] Name: MARTHA WINN Rep #: [id number] : 2000 23 From: Binta Luna CNM PCP: FATMATA Mueller Status:ADM IN Discharge Instructions Diet Discharge Diet: No restrictions Activity Discharge Activity: Return to Normal Activity May resume sexual activity in: 6-8 weeks Dressing / Incision Call your doctor if you observe: Fever of 101 or Higher, Coldness, Increased Pain, Numbness or Tingling, Change in Color, Inability to urinate, Inability to have a bowel movement, Using more than 1 pad per hour, Shortness of breath, Dizziness, Fainting spells, Swelling in the ankles, Chest pain, Increased palpitations (irregular heartbeat), Calf discomfort and Uncontrolled pain Follow Up Care Please Follow Up With: Binta Luna CNM When: Please call the office to schedule your follow up appointment in 6 weeks. If you had high blood pressure please call to schedule an appointment in 2 weeks. Test Results: Test results from this visit will be discussed in further detail at your follow-up appointment, if applicable. Discharge Plan Admission Admit Date/Time: 12/29/23 06:57 Attending Provider: Binta Luna Primary Care Provider: Sonam Martinez NP Discharge Orders/Prescriptions Prescriptions: No Action PNV no.086-SI-qc1-dha-epa- fish 400 mcg-35 mg- 25 mg-5 mg tablet,chewable 1 tab PO DAILY Slow Fe 137 mg (45 mg iron) tablet extended release 137 mg PO DAILY Referrals / Follow Up: Sonam Martinez NP, NP-C [Primary Care Provider] - 12/30/23 0541 Binta Luna CNM CC: FATMATA Martinez Signed Normal [facility] Operative Reporton 4 Operative Report [facility] Medical Records Department [address] [place] [address] Operative Report 12/30/23 0549 MR#: [id number] Acct: [id number] Name: MARTHA WINN Rep #: [id number] : 2000 23 From: Olivia Segal DO PCP: FATMATA Mueller Status:ADM IN Location: OC732-0 Assessment Plan (1) SROM (spontaneous rupture of membranes): (2) Headache in : (3) Anemia: COMMENT: repeat CBC in 4 wks (30weeks) (4) Supervision of normal first : QUALIFIERS: Trimester: second trimester Qualified Code(s): Z34.02 - Encounter for supervision of normal first , second trimester COMMENT: PRR, , DAMARIS 12/28/23, boy Endy Rambo (5) : QUALIFIERS: Weeks of gestation: 39 weeks Qualified Code(s): Z3A.39 - 39 weeks gestation of COMMENT: anatomy nl, discussed genetic carrier testing. declined afp. Maternal Data Information DAMARIS Calculator Estimated Delivery Date Method Current WG Current Estimate 12/28/23 LMP (Certain) 40w 2d Gestational age: 40 weeks 2 days Vaginal Delivery Maternal Presentation Maternal Presentation: Active Labor and Spontaneous Rupture of Membranes Type of Induction: Pitocin Operative Information Date of Procedure: 12/30/23 Pre-Operative Diagnosis: 23 y/o @ 40 weeks 2 days, maternal exhaustion and terminal bradycardia Post-Operative Diagnosis: 23 y/o @ 40 weeks 2 days, maternal exhaustion and terminal bradycardia Surgery / Procedure Performed: Vacuum Assisted Vaginal Delivery Type of Anesthesia: Epidural Drain: Blanchard to straight drain Estimated Blood Loss: 500cc Time of Delivery: 05:24 Findings Description of Procedure: Details of delivery: This is a 23 year old woman who was admitted to labor and delivery for SROM. The decision was made to perform a vacuum extraction due to pushing for 3 hours and terminal bradycardia. The risk benefits and alternatives of the procedure were discussed with the patient and verbal consent was obtained. The was noted to be at a +3 station, the cervix was completely dilated. The 's head was noted to be in the right occiput anterior presentation. The vacuum was placed in the correct placement in front of the posterior fontanelle. This was confirmed digitally. With the patient's next contraction, the vacuum was inflated and a gentle downward pressure was used to assist with bringing the baby's head to a +3 station. With 2 pull and 0 pop offs. The head was delivered atraumatically. No nuchal cord was noted. The anterior shoulder followed by the posterior shoulder were delivered without difficulty. The was handed off to the patient's chest. The infant was found to be vigorous and crying and moving of all 4 extremities. The mouth and nares were bulb suctioned. After 60 second delay the cord was clamped and cut and the was handed off to the awaiting nurses for routine assessment. The placenta was delivered with gentle traction and uterine massage. Inspection of the vagina cervix and perineum was performed. There were no lacerations to the vagina or to the cervix. The peritoneum was found to have a 2nd degree perineal laceration. The perineal laceration was closed using a 2-0 Vicryl in the usual sterile fashion. The patient tolerated the procedure well sponge lap and needle counts were correct x2 and she is now recovering in stable condition. baby boy "Endy" Presentation: Vertex Amniotic Membrane Rupture Type: Spontaneous Amniotic Fluid Description: Clear and Moderate meconium Placental Delivery Description: Spontaneous Placenta Disposition: [facility] Cord Vessel Description: 3 Vessels Cord Entanglement: None Cord Gases: ABG and VBG Infant A Gender: Male (1 minute): 9 (5 minute): 10 Delayed Cord Clamping: Yes Post Vaginal Delivery Medications Given After Delivery: IV Pitocin and IM Methergin Episiotomy Description: Right Mediolateral Laceration: 2nd degree Complication Complications: None Multi Select Codes Urinary/Genital Urinary/Genital CPT Codes: 00497 Vaginal Delivery [facility] 12/30/23 0553 Cosigner Signature (if applicable): CC: TREVIN Luna; SEWER BUILDERClayton Martinez; Dr. Olivia Segal DO Signed Normal [facility] (ROM) Rupture Of Membraneson 12-29-2023 ROM Positive Abnormal Negative [facility] Comment on above: Result Comment: Amni otic fluid present indicates rupture of Membranes. RESULTS CALLED TO [facility] 12/29/23 0655 Bill Zaldivar. REPORT READ BACK BY SAME. Performed By: #### L 205.1000 ####[facility] [address] [place], [address] CBC W/Diff, Automatedon Absolute Lymph 1.24 X10 3/uL Normal 0.83-4.51 [facility] Comment on above: Performed By: #### She DILLON, L100.0100 ####[facility] [address] [place], [address] Absolute Neut 8.1 X10 3/uL High 2.0-7.7 [facility] Comment on above: Performed By: #### She DILLON, L100.0100 ####[facility] [address] [place], [address] Basophils/100 WBC (Bld) 0.3 % Normal 0-1 [facility] Comment on above: Performed By: #### She DILLON, L100.0100 ####[facility] [address] [place], [address] Eosinophils/100 WBC (Bld) 0.5 % Normal 0-5 [facility] Comment on above: Performed By: #### She DILLON, L100.0100 ####[facility] [address] [place], [address] Erythrocyte distribution width (RBC) [Ratio] 14.7 % High 11.6-14.6 [facility] Comment on above: Performed By: #### She DILLON, L100.0100 ####[facility] [address] [place], [address] Hematocrit (Bld) [Volume fraction] 35.7 % Low 37-47 [facility] Comment on above: Performed By: #### She DILLON, L100.0100 ####[facility] [address] [place], [address] Hemoglobin (Bld) [Mass/Vol] 11.3 g/dL Low 12.0-15.0 [facility] Comment on above: Performed By: #### She DILLON, L100.0100 ####[facility] [address] [place], [address] IG% 1.200 High 0.0-0.9 [facility] Comment on above: Result Comment: IG% - Immature Granulocytes (promyelocytes, myelocytes and metamyelocytes) > 1% indicates that a LEFT SHIFT is Present. Performed By: #### She DILLON, L100.0100 ####[facility] [address] [place], [address] Lymphocytes/100 WBC (Bld) 12.3 % Low 19-41 [facility] Comment on above: Performed By: #### She DILLON, L100.0100 ####[facility] [address] [place], [address] MCH (RBC) [Entitic mass] 27.2 pg Normal 27.0-32.0 [facility] Comment on above: Performed By: #### She DILLON, L100.0100 ####[facility] [address] [place], [address] MCHC (RBC) [Mass/Vol] 31.7 g/dL Low 32-36 [facility] Comment on above: Performed By: #### She DILLON, L100.0100 ####[facility] [address] [place], [address] MCV (RBC) [Entitic vol] 86.0 fL Normal 81-99 [facility] Comment on above: Performed By: #### She DILLON, L100.0100 ####[facility] [address] [place], [address] Monocytes/100 WBC (Bld) 4.9 % Normal 0-10 [facility] Comment on above: Performed By: #### She DLILON, L100.0100 ####[facility] [address] [place], [address] Neutrophils/100 WBC (Bld) 80.8 % High 47-70 [facility] Comment on above: Performed By: #### She DILLON, L100.0100 ####[facility] [address] [place], [address] Nucleated RBC (Bld) [#/Vol] 0 10*3/uL Normal 0-5 [facility] Comment on above: Performed By: #### She DILLON, L100.0100 ####[facility] [address] [place], [address] Platelet mean volume (Bld) [Entitic vol] 10.2 fL Normal 6.2-12.0 [facility] Comment on above: Performed By: #### She DILLON, L100.0100 ####[facility] [address] [place], [address] Platelets (Bld) [#/Vol] 201 10*3/uL Normal 150-450 [facility] Comment on above: Performed By: #### She DILLON, L100.0100 ####[facility] [address] [place], [address] RBC (Bld) [#/Vol] 4.15 10*6/uL Low 4.2-5.4 [facility] Comment on above: Performed By: #### She DILLON, L100.0100 ####[facility] [address] [place], [address] RDW SD 46.7 fl High 35.1-43.9 [facility] Comment on above: Performed By: #### She DILLON, L100.0100 ####[facility] [address] [place], [address] WBC (Bld) [#/Vol] 10.1 10*3/uL Normal 4.4-11.0 [facility] Comment on above: Performed By: #### B TS, L100.0100 ####[facility] [address] [place], [address] H AND P Exam - OB/GYNon H&P Exam - GLUE MIXER [facility] Medical Records Department [address] [place] [address] H P Exam - GLUE MIXER 12/29/23 08 MR#: [id number] Acct: [id number] Name: MARTHA WINN Rep #: [id number] : 2000 23 From: Binta Luna CNM PCP: FATMATA Mueller Status:ADM IN Location: [id number] HPI - General General Date of Admission: 12/29/23 Date of Service: 12/29/23 HPI Narrative MARTHA WINN, is a 23 F 40.1 weeks who presents to unit with vaginal discharge. ROM + positive. plan for admission Maternal Data Information DAMARIS Calculator Estimated Delivery Date Method Current WG Current Estimate 12/28/23 LMP (Certain) 40w 1d Final DAMARIS: 12/28/23 Final DAMARIS Source: US >20 weeks Gestational age: 40.1 weeks PFSH PFS Medical History Seasonal allergies Home Medications ???Medication ???Instructions ???Recorded ???Last Taken ???Type PNV 153-FA 400 mcg-om3 35 mg-dha 1 tab PO DAILY 05/13/23 12/29/23 History 25 mg-epa 5 mg-fish oil chew tablet ferrous sulfate 137 mg (45 mg 137 mg PO DAILY 10/12/23 12/28/23 History iron) tablet,extended release (Slow Fe) Allergy/AdvReac Type Severity Reaction Status Date / Time No Known Allergies Allergy Verified 09/05/24 06:33 Family History Grandmother Breast cancer, Onset Age: 50 Paternal Surgical History [place] teeth extracted Social History adopted: No household members: spouse current occupational status: employed 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 history of recent travel: Yes ([facility]- [place]) out of state: Yes out of country: No sexually active: Yes Smoking Status: Never smoker alcohol intake: current alcohol intake frequency: holidays/special occasions only details: not while substance use type: does not use well-balanced diet: daily or most days caffeine: No eating out: 1-3 times/week during the past year weight has: remained stable what type of physical activity do you participate in: walking frequency: 1-2 times per week duration: 15-30 minutes/day michaela/hoahaoism: Confucianism seatbelt use: always do you feel safe at home: Yes 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 Elective abortions Hx Para 0 Spontaneous abortions Hx # Term Pregnancies Ectopic pregnancies Hx # Pregnancies Multiple births # of living children Visit Details Expected Delivery Route/Plan Labor Preferences- CB/BF classes: missed labor support person: Rambo labor intervention preferences: open to anything,okay with movement, massage, guided breathing, prayer, include Rambo please pain management options preferred: open to all cut cord/dad catch: yes : yes PP control planned: discussed possible routes of delivery and associated risks: [] special requests: [] Plans Covid status: [] Flu vaccine: Tdap vaccine:declined Rhogam: na LARC form signed: declined movement and labor precautions reviewed. Problem list reviewed and updated with the most current plan of care details and appropriate orders placed. Relevant counseling for the gestational age provided. Continue routine care and follow up unless otherwise noted in visit notes/problem list details OB Flowsheet Initial Weight: 142 lb Date -???-???-???-???-???-? ??-???-???-???-???-??? -???- EGA Weight BP Urine Prot -???-???-???-???-???-? ??-???-???-???-???-??? -???- Glucose FHR FuHt Pres Dilation -???-???-???-???-???-? ??-???-???-???-???-??? -???- Effaced St Visit Note 05/18/23 -???-???-???-???-???-? ??-???-???-???-???-??? -???- 8w 0d 142 lb 8 oz (+8 oz) 117/73 -???-???-???-???-???-? ??-???-???-???-???-??? -???- 163 -???-???-???-???-???-? ??-???-???-???-???-??? -???- LC- CRL 13.5 mm con with LMP. 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 ??-???-???-???-???-??? -???- 10w 0d 139 lb 6 oz (-2 lb 10 oz) 114/79 Negative -???-???-???-???-???-? ??-???-???-???-???-??? -???- Negative 160 -???-???-???-???-???-? ??-???-???-???-???-??? -???- JV- no lof, vaginal bleeding, or dec fm . 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 ??-???-???-???-???-??? -???- 14w 0d 141 lb 2 oz (-14 oz) 113/76 Negative -???-???-???-???-???-? ??-???-???-???-???-??? -???- Negative 156 -???-???-???-???-???-? ??-???-???-???-???-??? -???- JV-no lof, v aginal bleeding, or cramping. 07/26/23 -???-???-???-???-???-? ??-???-???-???-???-??? -???- 17w 6d 145 lb 8 oz (+3 lb 8 oz) 122/70 Negative -???-???-???-???-???-? ??-???-???-???-???-??? - (more content not included)... Normal [facility] L509.8000on 12-29-2023 Syphilis Abs Non-Reactive Normal [facility] Comment on above: Performed By: #### L 509.8000 #### [facility] [address] [place] [address] [place], [address] Type AND Screenon 12-29-2023 Ab SCREEN GEL Negative Normal [facility] Comment on above: Order Comment: Labor Performed By: #### B TS, L100.0100 ####[facility] [address] [place], [address] OB Limited With Biometricson 12-28-2023 OB Limited With Biometrics [facility] Services [address] [place] [address] OB Limited With Biometrics MR#: [id number] Acct: [id number] Name: MARTHA WINN Rep #: [id number] : 2000 F 23 From: Jevon Connelly MD PCP: FATMATA Mueller Status: REG CLI Study: OB Limited With Biometrics Date of Exam: 12/27 Exam# [id number] Ordering Dr: Olivia Segal DO [id number] INDICATION: headache in EXAMINATION: Ultrasound US OB Limited 1 Or More Fetus TECHNIQUE: transabdominal pelvic ultrasound was performed. Grayscale, spectral waveform, and color flow Doppler evaluation of the adnexa. COMPARISON: 05/18/2023 LMP: Unknown. Beta-hCG: Unknown. Provided EGA: 40 weeks 0 days FINDINGS: INTRAUTERINE GESTATION(s): Single. ESTIMATED GESTATIONAL AGE: 39 weeks 1 day ESTIMATED DUE DATE (DAMARIS): 01/03/2024 HEART MOTION is 148 bpm. AMNIOTIC FLUID INDEX (REJI): 19.1 cm ESTIMATED WEIGHT: 4065 g or 8 lbs. 15 oz. Percentile 82nd%. BIOPHYSICAL PROFILE (BPP): Not assessed. PRESENTATION: Cephalic PLACENTA: Anterior. There is no placenta previa or abruption. CERVIX: The cervix is not visualized. US/OB Limited With Biometrics IMPRESSION: Single live intrauterine of 39 weeks 1 day. Electronically Signed: Jevon Connelly MD at 17:01 EDT , CC: FATMATA Martinez; Dr. Olivia Segal DO Communication Coordinator: Signed Normal [facility] CBC W/Diff, Automatedon 09-0 Absolute Lymph 1.58 X10 3/uL Normal 0.83-4.51 [facility] Comment on above: Performed By: #### L 100.0100, L500.4050, L501.0900 ####[facility] [address] [place], [address] Absolute Neut 8.5 X10 3/uL High 2.0-7.7 [facility] Comment on above: Performed By: #### L 100.0100, L500.4050, L501.0900 ####[facility] [address] [place], [address] Basophils/100 WBC (Bld) 0.2 % Normal 0-1 [facility] Comment on above: Performed By: #### L 100.0100, L500.4050, L501.0900 ####[facility] [address] [place], [address] Eosinophils/100 WBC (Bld) 1.1 % Normal 0-5 [facility] Comment on above: Performed By: #### L 100.0100, L500.4050, L501.0900 ####[facility] [address] [place], [address] Erythrocyte distribution width (RBC) [Ratio] 14.7 % High 11.6-14.6 [facility] Comment on above: Performed By: #### L 100.0100, L500.4050, L501.0900 ####[facility] [address] [place], [address] Hematocrit (Bld) [Volume fraction] 37.2 % Normal 37-47 [facility] Comment on above: Performed By: #### L 100.0100, L500.4050, L501.0900 ####[facility] [address] [place], [address] Hemoglobin (Bld) [Mass/Vol] 11.9 g/dL Low 12.0-15.0 [facility] Comment on above: Performed By: #### L 100.0100, L500.4050, L501.0900 ####[facility] [address] [place], [address] IG% 1.200 High 0.0-0.9 [facility] Comment on above: Result Comment: IG% - Immature Granulocytes (promyelocytes, myelocytes and metamyelocytes) > 1% indicates that a LEFT SHIFT is Present. Performed By: #### L 100.0100, L500.4050, L501.0900 ####[facility] [address] [place], [address] Lymphocytes/100 WBC (Bld) 14.3 % Low 19-41 [facility] Comment on above: Performed By: #### L 100.0100, L500.4050, L501.0900 ####[facility] [address] [place], [address] MCH (RBC) [Entitic mass] 27.8 pg Normal 27.0-32.0 [facility] Comment on above: Performed By: #### L 100.0100, L500.4050, L501.0900 ####[facility] [address] [place], [address] MCHC (RBC) [Mass/Vol] 32.0 g/dL Normal 32-36 [facility] Comment on above: Performed By: #### L 100.0100, L500.4050, L501.0900 ####[facility] [address] [place], [address] MCV (RBC) [Entitic vol] 86.9 fL Normal 81-99 [facility] Comment on above: Performed By: #### L 100.0100, L500.4050, L501.0900 ####[facility] [address] [place], [address] Monocytes/100 WBC (Bld) 6.1 % Normal 0-10 [facility] Comment on above: Performed By: #### L 100.0100, L500.4050, L501.0900 ####[facility] [address] [place], [address] Neutrophils/100 WBC (Bld) 77.1 % High 47-70 [facility] Comment on above: Performed By: #### L 100.0100, L500.4050, L501.0900 ####[facility] [address] [place], [address] Nucleated RBC (Bld) [#/Vol] 0 10*3/uL Normal 0-5 [facility] Comment on above: Performed By: #### L 100.0100, L500.4050, L501.0900 ####[facility] [address] [place], [address] Platelet mean volume (Bld) [Entitic vol] 10.1 fL Normal 6.2-12.0 [facility] Comment on above: Performed By: #### L 100.0100, L500.4050, L501.0900 ####[facility] [address] [place], [address] Platelets (Bld) [#/Vol] 225 10*3/uL Normal 150-450 [facility] Comment on above: Performed By: #### L 100.0100, L500.4050, L501.0900 ####[facility] [address] [place], [address] RBC (Bld) [#/Vol] 4.28 10*6/uL Normal 4.2-5.4 [facility] Comment on above: Performed By: #### L 100.0100, L500.4050, L501.0900 ####[facility] [address] [place], [address] RDW SD 46.5 fl High 35.1-43.9 [facility] Comment on above: Performed By: #### L 100.0100, L500.4050, L501.0900 ####[facility] [address] [place], [address] WBC (Bld) [#/Vol] 11.1 10*3/uL High 4.4-11.0 [facility] Comment on above: Performed By: #### L 100.0100, L500.4050, L501.0900 ####[facility] [address] [place], [address] Comprehensive Metabolic Prof ilon 12-27-2023 Albumin [Mass/Vol] 2.7 g/dL Low 3.2-5.0 [facility] Comment on above: Performed By: #### L 100.0100, L500.4050, L501.0900 ####[facility] [address] [place], [address] Albumin/Globulin [Mass ratio] 0.7 {ratio} Low 0.9-2.4 [facility] Comment on above: Performed By: #### L 100.0100, L500.4050, L501.0900 ####[facility] [address] [place], [address] ALK P 143 U/L High 45-117 [facility] Comment on above: Performed By: #### L 100.0100, L500.4050, L501.0900 ####[facility] [address] [place], [address] ALT [Catalytic activity/Vol] 18 U/L Normal 13-56 [facility] Comment on above: Performed By: #### L 100.0100, L500.4050, L501.0900 ####[facility] [address] [place], [address] AST [Catalytic activity/Vol] 20 U/L Normal 15-37 [facility] Comment on above: Performed By: #### L 100.0100, L500.4050, L501.0900 ####[facility] [address] [place], [address] BUN/CRE 11.8 RATIO Normal 10-20 [facility] Comment on above: Performed By: #### L 100.0100, L500.4050, L501.0900 ####[facility] [address] [place], [address] CA,Total 9.3 mg/dL Normal 8.5-10.1 [facility] Comment on above: Performed By: #### L 100.0100, L500.4050, L501.0900 ####[facility] [address] [place], [address] Chloride [Moles/Vol] 108 mmol/L High 98-107 [facility] Comment on above: Performed By: #### L 100.0100, L500.4050, L501.0900 ####[facility] [address] [place], [address] CO2 [Moles/Vol] 23.0 mmol/L Normal 21.0-32.0 [facility] Comment on above: Performed By: #### L 100.0100, L500.4050, L501.0900 ####[facility] [address] [place], [address] Creatinine [Mass/Vol] 0.59 mg/dL Normal 0.55-1.02 [facility] Comment on above: Result Comment: The validity of the calculated GFR GFRAA in patients over 70 years has not been determined. Clinical correlation is essential. Performed By: #### L 100.0100, L500.4050, L501.0900 ####[facility] [address] [place], [address] EST GFR - AA 160 mL/min Normal >60 [facility] Comment on above: Result Comment: Afri can Slovak GFR Calc Performed By: #### L 100.0100, L500.4050, L501.0900 ####[facility] [address] [place], [address] GAP 7 Normal 5-15 [facility] Comment on above: Performed By: #### L 100.0100, L500.4050, L501.0900 ####[facility] [address] [place], [address] GFR/1.73 sq M.predicted among non-blacks MDRD (S/P/Bld) [Vol rate/Area] 132 mL/min/{1.73_m2} Normal >60 [facility] Comment on above: Result Comment: Non- GFR Calc Performed By: #### L 100.0100, L500.4050, L501.0900 ####[facility] [address] [place], [address] Globulin (S) [Mass/Vol] 4.1 g/dL Normal 2.2-4.2 [facility] Comment on above: Performed By: #### L 100.0100, L500.4050, L501.0900 ####[facility] [address] [place], [address] Glucose [Mass/Vol] 80 mg/dL Normal 74-106 [facility] Comment on above: Performed By: #### L 100.0100, L500.4050, L501.0900 ####[facility] [address] [place], [address] Potassium [Moles/Vol] 4.0 mmol/L Normal 3.5-5.1 [facility] Comment on above: Performed By: #### L 100.0100, L500.4050, L501.0900 ####[facility] [address] [place], [address] Sodium [Moles/Vol] 138 mmol/L Normal 136-145 [facility] Comment on above: Performed By: #### L 100.0100, L500.4050, L501.0900 ####[facility] [address] [place], [address] T BILI < 0.10 Low 0.20-1.00 [facility] Comment on above: Result Comment: For patients on eltrombopag therapy, use of Dimension Ulysses TBIL is not recommended. Performed By: #### L 100.0100, L500.4050, L501.0900 ####[facility] [address] [place], [address] T PROT 6.8 g/dL Normal 6.4-8.2 [facility] Comment on above: Performed By: #### L 100.0100, L500.4050, L501.0900 ####[facility] [address] [place], [address] Urea nitrogen [Mass/Vol] 7 mg/dL Normal 7-18 [facility] Comment on above: Performed By: #### L 100.0100, L500.4050, L501.0900 ####[facility] [address] [place], [address] Senior [employer]os Software Engineer Office Visit Reporton 12-27-2023 Senior Ios Software Engineer Office Visit Report [facility]'s [address], [address] [place] [address] OFFICE VISIT Date of Service: 12/27/23 MR#: [id number] Acct: [id number] Name: MARTHA WINN Rep #: [id number] : 2000 Provider: Dr. Olivia Rg DO Age/Sex: 23/F [place] [facility] [place]: Signed Intake Vital Signs 10/12/23 14:34 08/29/24 16:15 12/27/23 14:38 Height 5 ft 4 in 5 ft 4 in 5 ft 4 in Weight: 203 lb 6 oz BMI 34.9 BP 123/83 H Intake Visit Reasons: 40 WK OB Hris Administrator Required: No Is patient in pain?: No Allergies No Known Allergies Allergy (Verified 12/27/23 14:37) Medications ???Medication ???Instructions ???Recorded ???Confirmed ???Type PNV 153-FA 400 mcg-om3 35 mg-dha 1 tab PO DAILY 05/13/23 12/27/23 History 25 mg-epa 5 mg-fish oil chew tablet ondansetron 4 mg disintegrating 4 mg PO Q8H #30 tabs 05/18/23 12/27/23 Rx tablet ferrous sulfate 137 mg (45 mg 137 mg PO DAILY 10/12/23 12/27/23 History iron) tablet,extended release (Slow Fe) Last Menstrual Period: 03/23/23 Zika: Zika virus screening: Negative : No PFSH PFSH Medical History Seasonal allergies Surgical History Wantagh teeth extracted Family History Grandmother Breast cancer, Onset Age: 50 Paternal Social History adopted: No household members: spouse current occupational status: employed 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 history of recent travel: Yes ([facility]- [place]) out of state: Yes out of country: No sexually active: Yes Smoking Status: Never smoker alcohol intake: current alcohol intake frequency: holidays/special occasions only details: not while substance use type: does not use well-balanced diet: daily or most days caffeine: No eating out: 1-3 times/week during the past year weight has: remained stable what type of physical activity do you participate in: walking frequency: 1-2 times per week duration: 15-30 minutes/day michaela/hoahaoism: Confucianism seatbelt use: always do you feel safe at home: Yes 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 OB Visit DAMARIS Calculator Estimated Delivery Date Method Current WG Current Estimate 12/28/23 LMP (Certain) 39w 6d Expected Delivery Route/Plan Labor Preferences- CB/BF classes: missed labor support person: Rambo labor intervention preferences: open to anything,okay with movement, massage, guided breathing, prayer, include Rambo please pain management options preferred: open to all cut cord/dad catch: yes : yes PP control planned: discussed possible routes of delivery and associated risks: [] special requests: [] Specific Issue/Plans Covid status: [] Flu vaccine: Tdap vaccine:declined Rhogam: na LARC form signed: declined movement and labor precautions reviewed. Problem list reviewed and updated with the most current plan of care details and appropriate orders placed. Relevant counseling for the gestational age provided. Continue routine care and follow up unless otherwise noted in visit notes/problem list details Initial Weight: 142 lb Date -???-???-???-???-???-? ??-???-???-???-???-??? -???- EGA Weight BP Urine Prot -???-???-???-???-???-? ??-???-???-???-???-??? -???- Glucose FHR FuHt Pres Dilation -???-???-???-???-???-? ??-???-???-???-???-??? -???- Effaced St Visit Note 05/18/23 -???-???-???-???-???-? ??-???-???-???-???-??? -???- 8w 0d 142 lb 8 oz (+8 oz) 117/73 -???-???-???-???-???-? ??-???-???-???-???-??? -???- 163 -???-???-???-???-???-? ??-???-???-???-???-??? -???- LC- CRL 13.5 mm con with LMP. 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 ??-???-???-???-???-??? -???- 10w 0d 139 lb 6 oz (-2 lb 10 oz) 114/79 Negative -???-???-???-???-???-? ??-???-???-???-???-??? -???- Negative 160 -???-???-???-???-???-? ??-???-???-???-???-??? -???- JV- no lof, vaginal bleeding, or dec fm . 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 ??-???-???-???-???-??? -???- 14w 0d 141 lb 2 oz (-14 oz) 113/76 Negative -???-???-???-???-???-? ??-???-???-???-???-??? -???- Negative 156 -???-???-???-???-???-? ??-???-???-???-???-??? -???- JV-no lof, v aginal bleeding, or cram (more content not included)... Normal [facility] Protein+Creatinine Ratio,Uri neon 12-27-2023 PROT:CRE RATIO 223 mg/g CRE High 0-200 [facility] Comment on above: Performed By: #### L 501.0900 ####[facility] [address] [place], [address] Protein (U) [Mass/Vol] 6.3 mg/dL Normal <11.9 [facility] Comment on above: Performed By: #### L 501.0900 ####[facility] [address] [place], [address] UR CREAT 28.30 mg/dL Normal NO RANGE EST. [facility] Comment on above: Performed By: #### L 501.0900 ####[facility] [address] [place], [address] PROT:CRE RATIO 163 mg/g CRE Normal 0-200 [facility] Comment on above: Performed By: #### L 100.0100, L500.4050, L501.0900 ####[facility] [address] [place], [address] Protein (U) [Mass/Vol] 7.5 mg/dL Normal <11.9 [facility] Comment on above: Performed By: #### L 100.0100, L500.4050, L501.0900 ####[facility] [address] [place], [address] UR CREAT 46.00 mg/dL Normal NO RANGE EST. [facility] Comment on above: Performed By: #### L 100.0100, L500.4050, L501.0900 ####[facility] [address] [place], [address] Senior Ios Software Engineer Office Visit Reporton 12-22-2023 Senior Ios Software Engineer Office Visit Report [facility]'[address], [address] [place] [address] OFFICE VISIT Date of Service: 12/22/23 MR#: [id number] Acct: [id number] Name: MARTHA WINN Rep #: [id number] : 2000 Provider: Dr. Tracey chou MD Age/Sex: 23/F [place] [facility] [place]: Signed Intake Vital Signs 10/12/23 14:34 11/01/23 15:01 12/21/23 10:52 12/22/23 16:10 12/22/23 16:15 Height 5 ft 4 in 5 ft 4 in 5 ft 4 in 5 ft 4 in 5 ft 4 in Weight: 203 lb BMI 34.8 BP 132/79 H Intake Visit Reasons: 39 WK OB Hris Administrator Required: No Allergies No Known Allergies Allergy (Verified 12/22/23 16:13) Medications ???Medication ???Instructions ???Recorded ???Confirmed ???Type PNV 153-FA 400 mcg-om3 35 mg-dha 1 tab PO DAILY 05/13/23 12/22/23 History 25 mg-epa 5 mg-fish oil chew tablet ondansetron 4 mg disintegrating 4 mg PO Q8H #30 tabs 05/18/23 12/22/23 Rx tablet ferrous sulfate 137 mg (45 mg 137 mg PO DAILY 10/12/23 12/22/23 History iron) tablet,extended release (Slow Fe) Last Menstrual Period: 03/23/23 Zika: Zika virus screening: Negative : No Have you fallen in the past year?: No PFSH PFSH Medical History Seasonal allergies Surgical History Wantagh teeth extracted Family History Grandmother Breast cancer, Onset Age: 50 Paternal Social History adopted: No household members: spouse current occupational status: employed 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 history of recent travel: Yes ([facility]- [place]) out of state: Yes out of country: No sexually active: Yes Smoking Status: Never smoker alcohol intake: current alcohol intake frequency: holidays/special occasions only details: not while substance use type: does not use well-balanced diet: daily or most days caffeine: No eating out: 1-3 times/week during the past year weight has: remained stable what type of physical activity do you participate in: walking frequency: 1-2 times per week duration: 15-30 minutes/day michaela/hoahaoism: Confucianism seatbelt use: always do you feel safe at home: Yes 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 OB Visit DAMARIS Calculator Estimated Delivery Date Method Current WG Current Estimate 12/28/23 LMP (Certain) 39w 1d Expected Delivery Route/Plan Labor Preferences- CB/BF classes: missed labor support person: Rambo labor intervention preferences: open to anything,okay with movement, massage, guided breathing, prayer, include Rambo please pain management options preferred: open to all cut cord/dad catch: yes : yes PP control planned: discussed possible routes of delivery and associated risks: [] special requests: [] Specific Issue/Plans Covid status: [] Flu vaccine: Tdap vaccine:declined Rhogam: na LARC form signed: declined movement and labor precautions reviewed. Problem list reviewed and updated with the most current plan of care details and appropriate orders placed. Relevant counseling for the gestational age provided. Continue routine care and follow up unless otherwise noted in visit notes/problem list details Initial Weight: 142 lb Date -???-???-???-???-???-? ??-???-???-???-???-??? -???- EGA Weight BP Urine Prot -???-???-???-???-???-? ??-???-???-???-???-??? -???- Glucose FHR FuHt Pres Dilation -???-???-???-???-???-? ??-???-???-???-???-??? -???- Effaced St Visit Note 05/18/23 -???-???-???-???-???-? ??-???-???-???-???-??? -???- 8w 0d 142 lb 8 oz (+8 oz) 117/73 -???-???-???-???-???-? ??-???-???-???-???-??? -???- 163 -???-???-???-???-???-? ??-???-???-???-???-??? -???- LC- CRL 13.5 mm con with LMP. 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 ??-???-???-???-???-??? -???- 10w 0d 139 lb 6 oz (-2 lb 10 oz) 114/79 Negative -???-???-???-???-???-? ??-???-???-???-???-??? -???- Negative 160 -???-???-???-???-???-? ??-???-???-???-???-??? -???- JV- no lof, vaginal bleeding, or dec fm . 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 ??-???-???-???-???-??? -???- 14w 0d 141 lb 2 oz (-14 oz) 113/76 Negative -???-???-???-???-???-? ??-???-???-???-???-??? -???- Negative 156 -???-???-???-???-???-? ??-???-???-???-? (more content not included)... Normal [facility] (ROM) Rupture Of Membraneson 12-21-2023 ROM Negative Normal Negative [facility] Comment on above: Result Comment: Amni otic fluid not present indicates No Rupture of Membranes at time of specimen collection. Performed By: #### L 501.0900, L500.4050, L100.0100 #### [facility] [address] [facility] [place], [place], [address] OB Triage Physician Noteon 0 12-21-2023 OB Triage Physician Note [facility] Medical Records Department [address] [place] [address] OB Triage Physician Note 12/21/23 1549 MR#: [id number] Acct: [id number] Name: MARTHA WINN Rep #: [id number] : 2000 23 From: Olivia Segal DO PCP: FATMATA Mueller Status:DEP CLI Y Location: [facility] HPI - General HPI Narrative MARTHA WINN, is a 23 y/o @ 39 weeks who presents to [facility] with the complaint of leaking fluid and back pain. She denies vaginal bleeding or decreased movement. Maternal Data Information DAMARIS Calculator Estimated Delivery Date Method Current WG Current Estimate 12/28/23 LMP (Certain) 39w 0d PFSH PFSH Medical History Seasonal allergies Home Medications ???Medication ???Instructions ???Recorded ???Last Taken ???Type PNV 153-FA 400 mcg-om3 35 mg-dha 1 tab PO DAILY 05/13/23 12/21/23 History 25 mg-epa 5 mg-fish oil chew tablet ondansetron 4 mg disintegrating 4 mg PO Q8H #30 tabs 05/18/23 Unknown Rx tablet ferrous sulfate 137 mg (45 mg 137 mg PO DAILY 10/12/23 12/20/23 History iron) tablet,extended release (Slow Fe) Allergy/AdvReac Type Severity Reaction Status Date / Time No Known Allergies Allergy Verified 12/21/23 10:54 Family History Grandmother Breast cancer, Onset Age: 50 Paternal Surgical History Wantagh teeth extracted Social History adopted: No household members: spouse current occupational status: employed 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 history of recent travel: Yes ([facility]- [place]) out of state: Yes out of country: No sexually active: Yes Smoking Status: Never smoker alcohol intake: current alcohol intake frequency: holidays/special occasions only details: not while substance use type: does not use well-balanced diet: daily or most days caffeine: No eating out: 1-3 times/week during the past year weight has: remained stable what type of physical activity do you participate in: walking frequency: 1-2 times per week duration: 15-30 minutes/day michaela/hoahaoism: Confucianism seatbelt use: always do you feel safe at home: Yes 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 Elective abortions Hx Para 0 Spontaneous abortions Hx # Term Pregnancies Ectopic pregnancies Hx # Pregnancies Multiple births # of living children Visit Details Expected Delivery Route/Plan Labor Preferences- CB/BF classes: [] labor support person: [] labor intervention preferences: [] pain management options preferred: [] cut cord/dad catch: [] : [] PP control planned: [] discussed possible routes of delivery and associated risks: [] special requests: [] Plans Covid status: [] Flu vaccine: Tdap vaccine:declined Rhogam: na LARC form signed: declined movement and labor precautions reviewed. Problem list reviewed and updated with the most current plan of care details and appropriate orders placed. Relevant counseling for the gestational age provided. Continue routine care and follow up unless otherwise noted in visit notes/problem list details OB Flowsheet Initial Weight: 142 lb Date -???-???-???-???-???-? ??-???-???-???-???-??? -???- EGA Weight BP Urine Prot -???-???-???-???-???-? ??-???-???-???-???-??? -???- Glucose FHR FuHt Pres Dilation -???-???-???-???-???-? ??-???-???-???-???-??? -???- Effaced St Visit Note 05/18/23 -???-???-???-???-???-? ??-???-???-???-???-??? -???- 8w 0d 142 lb 8 oz (+8 oz) 117/73 -???-???-???-???-???-? ??-???-???-???-???-??? -???- 163 -???-???-???-???-???-? ??-???-???-???-???-??? -???- LC- CRL 13.5 mm con with LMP. 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 ??-???-???-???-???-??? -???- 10w 0d 139 lb 6 oz (-2 lb 10 oz) 114/79 Negative -???-???-???-???-???-? ??-???-???-???-???-??? -???- Negative 160 -???-???-???-???-???-? ??-???-???-???-???-??? -???- JV- no lof, vaginal bleeding, or dec fm . 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 ??-???-???-???-???-??? -???- 14w 0d 141 lb 2 oz (-14 oz) 113/76 Negative -???-???-???-???-???-? ??-???-???-???-???-??? -???- Negative 156 -???-???-???-???-???-? ??-???-???-???-???-??? -???- JV-no lof, v aginal bleeding, or cramping. 07/26/23 -???-???-???-???-???-? ??-???-???-???-???-??? -???- 17w 6d 145 lb 8 oz (+3 lb 8 oz) 122/70 Negative -???-???-???-???-???-? ??-???-???-???-???-??? -???- Negative 161 -???-???-???-???-???-? ??-???-???-???-???-??? -???- MH-Episode o f blurred vision, numbness of lips and f (more content not included)... Normal [facility] Senior Ios Software Engineer Office Visit Reporton 12-12-2023 Senior Ios Software Engineer Office Visit Report [facility]'s [address], [address] [place] [address] OFFICE VISIT Date of Service: 12/12/23 MR#: [id number] Acct: [id number] Name: MARTHA WINN Rep #: [id number] : 2000 Provider: Dr. Olivia Rg DO Age/Sex: 23/F [place] [facility] [place]: Signed Intake Vital Signs 10/12/23 14:34 12/05/23 14:44 12/12/23 14:39 12/12/23 14:40 Height 5 ft 4 in 5 ft 4 in 5 ft 4 in 5 ft 4 in Weight: 201 lb 2 oz BMI 34.5 BP 122/85 H Intake Visit Reasons: 38 WK OB Hris Administrator Required: No Is patient in pain?: No Allergies No Known Allergies Allergy (Verified 12/12/23 14:39) Medications ???Medication ???Instructions ???Recorded ???Confirmed ???Type PNV 153-FA 400 mcg-om3 35 mg-dha tab PO 05/13/23 12/12/23 History 25 mg-epa 5 mg-fish oil chew tablet ondansetron 4 mg disintegrating 4 mg PO Q8H #30 tabs 05/18/23 12/12/23 Rx tablet ferrous sulfate 137 mg (45 mg 137 mg PO DAILY 10/12/23 12/12/23 History iron) tablet,extended release (Slow Fe) Last Menstrual Period: 03/23/23 Zika: Zika virus screening: Negative : No PFSH PFSH Medical History Seasonal allergies Surgical History Wantagh teeth extracted Family History Grandmother Breast cancer, Onset Age: 50 Paternal Social History adopted: No household members: spouse current occupational status: employed 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 history of recent travel: Yes ([facility]- [place]) out of state: Yes out of country: No sexually active: Yes Smoking Status: Never smoker alcohol intake: current alcohol intake frequency: holidays/special occasions only details: not while substance use type: does not use well-balanced diet: daily or most days caffeine: No eating out: 1-3 times/week during the past year weight has: remained stable what type of physical activity do you participate in: walking frequency: 1-2 times per week duration: 15-30 minutes/day michaela/hoahaoism: Confucianism seatbelt use: always do you feel safe at home: Yes 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 OB Visit DAMARIS Calculator Estimated Delivery Date Method Current WG Current Estimate 12/28/23 LMP (Certain) 37w 5d Expected Delivery Route/Plan Labor Preferences- CB/BF classes: [] labor support person: [] labor intervention preferences: [] pain management options preferred: [] cut cord/dad catch: [] : [] PP control planned: [] discussed possible routes of delivery and associated risks: [] special requests: [] Specific Issue/Plans Covid status: [] Flu vaccine: Tdap vaccine:declined Rhogam: na LARC form signed: declined movement and labor precautions reviewed. Problem list reviewed and updated with the most current plan of care details and appropriate orders placed. Relevant counseling for the gestational age provided. Continue routine care and follow up unless otherwise noted in visit notes/problem list details Initial Weight: 142 lb Date -???-???-???-???-???-? ??-???-???-???-???-??? -???- EGA Weight BP Urine Prot -???-???-???-???-???-? ??-???-???-???-???-??? -???- Glucose FHR FuHt Pres Dilation -???-???-???-???-???-? ??-???-???-???-???-??? -???- Effaced St Visit Note 05/18/23 -???-???-???-???-???-? ??-???-???-???-???-??? -???- 8w 0d 142 lb 8 oz (+8 oz) 117/73 -???-???-???-???-???-? ??-???-???-???-???-??? -???- 163 -???-???-???-???-???-? ??-???-???-???-???-??? -???- LC- CRL 13.5 mm con with LMP. 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 ??-???-???-???-???-??? -???- 10w 0d 139 lb 6 oz (-2 lb 10 oz) 114/79 Negative -???-???-???-???-???-? ??-???-???-???-???-??? -???- Negative 160 -???-???-???-???-???-? ??-???-???-???-???-??? -???- JV- no lof, vaginal bleeding, or dec fm . 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 ??-???-???-???-???-??? -???- 14w 0d 141 lb 2 oz (-14 oz) 113/76 Negative -???-???-???-???-???-? ??-???-???-???-???-??? -???- Negative 156 -???-???-???-???-???-? ??-???-???-???-???-??? -???- JV-no lof, v aginal bleeding, or cramping. 07/26/23 -???-???-???-???-???-? ??-???-???-???-???-??? -???- 17w 6d 145 lb 8 oz (+3 (more content not included)... Normal [facility] Senior Ios Software Engineer Office Visit Reporton 12-05-2023 Senior Ios Software Engineer Office Visit Report [facility] [address] [place] [address] OFFICE VISIT Date of Service: 12/05/23 MR#: [id number] Acct: [id number] Name: MARTHA WINN Rep #: [id number] : 2000 Provider: Dr. Olivia Rg DO Age/Sex: 23/F [place] [facility] [place]: Signed Intake Vital Signs 11/30/23 15:02 12/05/23 14:44 Height 5 ft 4 in 5 ft 4 in Weight: 198 lb 2 oz BMI 34.0 BP 116/76 Intake Visit Reasons: 37 WK OB Hris Administrator Required: No Is patient in pain?: No Allergies No Known Allergies Allergy (Verified 12/05/23 14:45) Medications ???Medication ???Instructions ???Recorded ???Confirmed ???Type PNV 153-FA 400 mcg-om3 35 mg-dha tab PO 05/13/23 12/05/23 History 25 mg-epa 5 mg-fish oil chew tablet ondansetron 4 mg disintegrating 4 mg PO Q8H #30 tabs 05/18/23 12/05/23 Rx tablet ferrous sulfate 137 mg (45 mg 137 mg PO DAILY 10/12/23 12/05/23 History iron) tablet,extended release (Slow Fe) Last Menstrual Period: 03/23/23 Zika: Zika virus screening: Negative : No PFSH PFSH Medical History Seasonal allergies Surgical History [place] teeth extracted Family History Grandmother Breast cancer, Onset Age: 50 Paternal Social History adopted: No household members: spouse current occupational status: employed 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 history of recent travel: Yes ([facility]- [facility]) out of state: Yes out of country: No sexually active: Yes Smoking Status: Never smoker alcohol intake: current alcohol intake frequency: holidays/special occasions only details: not while substance use type: does not use well-balanced diet: daily or most days caffeine: No eating out: 1-3 times/week during the past year weight has: remained stable what type of physical activity do you participate in: walking frequency: 1-2 times per week duration: 15-30 minutes/day michaela/hoahaoism: Confucianism seatbelt use: always do you feel safe at home: Yes 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 OB Visit DAMARIS Calculator Estimated Delivery Date Method Current WG Current Estimate 12/28/23 LMP (Certain) 36w 5d Expected Delivery Route/Plan Labor Preferences- CB/BF classes: [] labor support person: [] labor intervention preferences: [] pain management options preferred: [] cut cord/dad catch: [] : [] PP control planned: [] discussed possible routes of delivery and associated risks: [] special requests: [] Specific Issue/Plans Covid status: [] Flu vaccine: Tdap vaccine:declined Rhogam: na LARC form signed: declined movement and labor precautions reviewed. Problem list reviewed and updated with the most current plan of care details and appropriate orders placed. Relevant counseling for the gestational age provided. Continue routine care and follow up unless otherwise noted in visit notes/problem list details Initial Weight: 142 lb Date -???-???-???-???-???-? ??-???-???-???-???-??? -???- EGA Weight BP Urine Prot -???-???-???-???-???-? ??-???-???-???-???-??? -???- Glucose FHR FuHt Pres Dilation -???-???-???-???-???-? ??-???-???-???-???-??? -???- Effaced St Visit Note 05/18/23 -???-???-???-???-???-? ??-???-???-???-???-??? -???- 8w 0d 142 lb 8 oz (+8 oz) 117/73 -???-???-???-???-???-? ??-???-???-???-???-??? -???- 163 -???-???-???-???-???-? ??-???-???-???-???-??? -???- LC- CRL 13.5 mm con with LMP. 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 ??-???-???-???-???-??? -???- 10w 0d 139 lb 6 oz (-2 lb 10 oz) 114/79 Negative -???-???-???-???-???-? ??-???-???-???-???-??? -???- Negative 160 -???-???-???-???-???-? ??-???-???-???-???-??? -???- JV- no lof, vaginal bleeding, or dec fm . 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 ??-???-???-???-???-??? -???- 14w 0d 141 lb 2 oz (-14 oz) 113/76 Negative -???-???-???-???-???-? ??-???-???-???-???-??? -???- Negative 156 -???-???-???-???-???-? ??-???-???-???-???-??? -???- JV-no lof, v aginal bleeding, or cramping. 07/26/23 -???-???-???-???-???-? ??-???-???-???-???-??? -???- 17w 6d 145 lb 8 oz (+3 lb 8 oz) 122/70 Negative -???-???-???-???- (more content not included)... Normal [facility] Rule out Beta Strep (Grp. B) on 12-02-2023 JANE Group B Beta Streptococcus is not isolated. Normal [facility] Comment on above: Performed By: #### M [id number] ####[facility] [address] [place], [address] Senior Ios Software Engineer Office Visit Reporton 11-30-2023 Senior Ios Software Engineer Office Visit Report [facility] [address] [place] [address] OFFICE VISIT Date of Service: 11/30/23 MR#: [id number] Acct: [id number] Name: MARTHA WINN Rep #: [id number] : 2000 Provider: Dr. Tracey chou MD Age/Sex: 23/F [place] [facility] [place] Status: Signed Intake Vital Signs 10/12/23 14:34 11/18/23 16:16 11/30/23 14:59 11/30/23 15:02 Height 5 ft 4 in 5 ft 4 in 5 ft 4 in Weight: 195 lb 195 lb BMI 33.5 BP 118/75 Intake Visit Reasons: 34 WK OB Hris Administrator Required: No Is patient in pain?: No Allergies No Known Allergies Allergy (Verified 11/30/23 15:00) Medications ???Medication ???Instructions ???Recorded ???Confirmed ???Type PNV 153-FA 400 mcg-om3 35 mg-dha tab PO 05/13/23 11/30/23 History 25 mg-epa 5 mg-fish oil chew tablet ondansetron 4 mg disintegrating 4 mg PO Q8H #30 tabs 05/18/23 11/30/23 Rx tablet ferrous sulfate 137 mg (45 mg 137 mg PO DAILY 10/12/23 11/30/23 History iron) tablet,extended release (Slow Fe) Last Menstrual Period: 03/23/23 Zika: Zika virus screening: Negative : No Have you fallen in the past year?: No PFSH PFSH Medical History Seasonal allergies Surgical History Want[place] teeth extracted Family History Grandmother Breast cancer, Onset Age: 50 Paternal Social History adopted: No household members: spouse current occupational status: employed 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 history of recent travel: Yes ([facility]- [place]) out of state: Yes out of country: No sexually active: Yes Smoking Status: Never smoker alcohol intake: current alcohol intake frequency: holidays/special occasions only details: not while substance use type: does not use well-balanced diet: daily or most days caffeine: No eating out: 1-3 times/week during the past year weight has: remained stable what type of physical activity do you participate in: walking frequency: 1-2 times per week duration: 15-30 minutes/day michaela/hoahaoism: Confucianism seatbelt use: always do you feel safe at home: Yes 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 OB Visit DAMARIS Calculator Estimated Delivery Date Method Current WG Current Estimate 12/28/23 LMP (Certain) 36w 0d Expected Delivery Route/Plan Labor Preferences- CB/BF classes: [] labor support person: [] labor intervention preferences: [] pain management options preferred: [] cut cord/dad catch: [] : [] PP control planned: [] discussed possible routes of delivery and associated risks: [] special requests: [] Specific Issue/Plans Covid status: [] Flu vaccine: Tdap vaccine:declined Rhogam: na LARC form signed: declined movement and labor precautions reviewed. Problem list reviewed and updated with the most current plan of care details and appropriate orders placed. Relevant counseling for the gestational age provided. Continue routine care and follow up unless otherwise noted in visit notes/problem list details Initial Weight: 142 lb Date -???-???-???-???-???-? ??-???-???-???-???-??? -???- EGA Weight BP Urine Prot -???-???-???-???-???-? ??-???-???-???-???-??? -???- Glucose FHR FuHt Pres Dilation -???-???-???-???-???-? ??-???-???-???-???-??? -???- Effaced St Visit Note 05/18/23 -???-???-???-???-???-? ??-???-???-???-???-??? -???- 8w 0d 142 lb 8 oz (+8 oz) 117/73 -???-???-???-???-???-? ??-???-???-???-???-??? -???- 163 -???-???-???-???-???-? ??-???-???-???-???-??? -???- LC- CRL 13.5 mm con with LMP. 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 ??-???-???-???-???-??? -???- 10w 0d 139 lb 6 oz (-2 lb 10 oz) 114/79 Negative -???-???-???-???-???-? ??-???-???-???-???-??? -???- Negative 160 -???-???-???-???-???-? ??-???-???-???-???-??? -???- JV- no lof, vaginal bleeding, or dec fm . 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 ??-???-???-???-???-??? -???- 14w 0d 141 lb 2 oz (-14 oz) 113/76 Negative -???-???-???-???-???-? ??-???-???-???-???-??? -???- Negative 156 -???-???-???-???-???-? ??-???-???-???-???-??? -???- JV-no lof, v aginal bleeding, or cramping. 07/26/23 -???-???-???-???-???-? ??-???-???-???- (more content not included)... Normal [facility] Senior Ios Software Engineer Office Visit Reporton 11-18-2023 Senior Ios Software Engineer Office Visit Report [facility] [address] [place] [address] OFFICE VISIT Date of Service: 11/18/23 MR#: [id number] Acct: [id number] Name: MARTHA WINN Rep #: [id number] : 2000 Provider: Dr. Olivia Rg DO Age/Sex: 23/F [place] [facility] [place]: Signed Intake Vital Signs 10/12/23 14:34 11/15/23 22:17 11/18/23 16:15 11/18/23 16:16 Height 5 ft 4 in 5 ft 4 in 5 ft 4 in 5 ft 4 in Weight: 192 lb BMI 32.9 BP 113/72 Intake Visit Reasons: 32 WK OB Hris Administrator Required: No Is patient in pain?: No Allergies No Known Allergies Allergy (Verified 11/18/23 16:14) Medications ???Medication ???Instructions ???Recorded ???Confirmed ???Type PNV 153-FA 400 mcg-om3 35 mg-dha tab PO 05/13/23 11/18/23 History 25 mg-epa 5 mg-fish oil chew tablet ondansetron 4 mg disintegrating 4 mg PO Q8H #30 tabs 05/18/23 11/18/23 Rx tablet ferrous sulfate 137 mg (45 mg 137 mg PO DAILY 10/12/23 11/18/23 History iron) tablet,extended release (Slow Fe) Last Menstrual Period: 03/23/23 Zika: Zika virus screening: Negative : No PFSH PFSH Medical History Seasonal allergies Surgical History Wantagh teeth extracted Family History Grandmother Breast cancer, Onset Age: 50 Paternal Social History adopted: No household members: spouse current occupational status: employed 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 history of recent travel: Yes ([facility]- [facility]) out of state: Yes out of country: No sexually active: Yes Smoking Status: Never smoker alcohol intake: current alcohol intake frequency: holidays/special occasions only details: not while substance use type: does not use well-balanced diet: daily or most days caffeine: No eating out: 1-3 times/week during the past year weight has: remained stable what type of physical activity do you participate in: walking frequency: 1-2 times per week duration: 15-30 minutes/day michaela/hoahaoism: Confucianism seatbelt use: always do you feel safe at home: Yes 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 OB Visit DAMARIS Calculator Estimated Delivery Date Method Current WG Current Estimate 12/28/23 LMP (Certain) 34w 2d Expected Delivery Route/Plan Labor Preferences- CB/BF classes: [] labor support person: [] labor intervention preferences: [] pain management options preferred: [] cut cord/dad catch: [] : [] PP control planned: [] discussed possible routes of delivery and associated risks: [] special requests: [] Specific Issue/Plans Covid status: [] Flu vaccine: [] Tdap vaccine: [] Rhogam: [] LARC form signed: [] Problem list reviewed and updated with the most current plan of care details and appropriate orders placed. Relevant counseling for the gestational age provided. Continue routine care and follow up unless otherwise noted in visit notes/problem list details Initial Weight: 142 lb Date -???-???-???-???-???-? ??-???-???-???-???-??? -???- EGA Weight BP Urine Prot -???-???-???-???-???-? ??-???-???-???-???-??? -???- Glucose FHR FuHt Pres Dilation -???-???-???-???-???-? ??-???-???-???-???-??? -???- Effaced St Visit Note 05/18/23 -???-???-???-???-???-? ??-???-???-???-???-??? -???- 8w 0d 142 lb 8 oz (+8 oz) 117/73 -???-???-???-???-???-? ??-???-???-???-???-??? -???- 163 -???-???-???-???-???-? ??-???-???-???-???-??? -???- LC- CRL 13.5 mm con with LMP. 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 ??-???-???-???-???-??? -???- 10w 0d 139 lb 6 oz (-2 lb 10 oz) 114/79 Negative -???-???-???-???-???-? ??-???-???-???-???-??? -???- Negative 160 -???-???-???-???-???-? ??-???-???-???-???-??? -???- JV- no lof, vaginal bleeding, or dec fm . 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 ??-???-???-???-???-??? -???- 14w 0d 141 lb 2 oz (-14 oz) 113/76 Negative -???-???-???-???-???-? ??-???-???-???-???-??? -???- Negative 156 -???-???-???-???-???-? ??-???-???-???-???-??? -???- JV-no lof, v aginal bleeding, or cramping. 07/26/23 -???-???-???-???-???-? ??-???-???-???-???-??? -???- 17w 6d 145 lb 8 oz (+3 lb 8 oz) 122/70 Negative -???-???-???-???-???-? ??- (more content not included)... Normal [facility] OB Triage Physician Noteon 0 11-15-2023 OB Triage Physician Note [facility] Medical Records Department [address] [place] [address] OB Triage Physician Note 11/15/23 2351 MR#: [id number] Acct: [id number] Name: MARTHA WINN Rep #: [id number] : 2000 23 From: Olivia Segal DO PCP: FATMATA Mueller Status:DEP CLI Y Location: [facility] HPI - General HPI Narrative MARTHA WINN, is a 23 y/o @ 34 weeks 1 day who presents to L D with decreased movement. She has just the minimal movements today (4 kicks in 40 minutes) and states that her baby is usually more active than that. Maternal Data Information DAMARIS Calculator Estimated Delivery Date Method Current WG Current Estimate 12/28/23 LMP (Certain) 34w 1d PFSH PFSH Medical History Seasonal allergies Home Medications ???Medication ???Instructions ???Recorded ???Last Taken ???Type PNV 153-FA 400 mcg-om3 35 mg-dha tab PO 05/13/23 11/15/23 History 25 mg-epa 5 mg-fish oil chew tablet ondansetron 4 mg disintegrating 4 mg PO Q8H #30 tabs 05/18/23 Unknown Rx tablet ferrous sulfate 137 mg (45 mg 137 mg PO DAILY 10/12/23 11/14/23 History iron) tablet,extended release (Slow Fe) Allergy/AdvReac Type Severity Reaction Status Date / Time No Known Allergies Allergy Verified 11/15/23 22:18 Family History Grandmother Breast cancer, Onset Age: 50 Paternal Surgical History Wantagh teeth extracted Social History adopted: No household members: spouse current occupational status: employed 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 history of recent travel: Yes ([facility]- [facility]) out of state: Yes out of country: No sexually active: Yes Smoking Status: Never smoker alcohol intake: current alcohol intake frequency: holidays/special occasions only details: not while substance use type: does not use well-balanced diet: daily or most days caffeine: No eating out: 1-3 times/week during the past year weight has: remained stable what type of physical activity do you participate in: walking frequency: 1-2 times per week duration: 15-30 minutes/day michaela/hoahaoism: Confucianism seatbelt use: always do you feel safe at home: Yes 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 Elective abortions Hx Para 0 Spontaneous abortions Hx # Term Pregnancies Ectopic pregnancies Hx # Pregnancies Multiple births # of living children Visit Details Expected Delivery Route/Plan Labor Preferences- CB/BF classes: [] labor support person: [] labor intervention preferences: [] pain management options preferred: [] cut cord/dad catch: [] : [] PP control planned: [] discussed possible routes of delivery and associated risks: [] special requests: [] Plans Covid status: [] Flu vaccine: [] Tdap vaccine: [] Rhogam: [] LARC form signed: [] Problem list reviewed and updated with the most current plan of care details and appropriate orders placed. Relevant counseling for the gestational age provided. Continue routine care and follow up unless otherwise noted in visit notes/problem list details OB Flowsheet Initial Weight: 142 lb Date -???-???-???-???-???-? ??-???-???-???-???-??? -???- EGA Weight BP Urine Prot -???-???-???-???-???-? ??-???-???-???-???-??? -???- Glucose FHR FuHt Pres Dilation -???-???-???-???-???-? ??-???-???-???-???-??? -???- Effaced St Visit Note 05/18/23 -???-???-???-???-???-? ??-???-???-???-???-??? -???- 8w 0d 142 lb 8 oz (+8 oz) 117/73 -???-???-???-???-???-? ??-???-???-???-???-??? -???- 163 -???-???-???-???-???-? ??-???-???-???-???-??? -???- LC- CRL 13.5 mm con with LMP. 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 ??-???-???-???-???-??? -???- 10w 0d 139 lb 6 oz (-2 lb 10 oz) 114/79 Negative -???-???-???-???-???-? ??-???-???-???-???-??? -???- Negative 160 -???-???-???-???-???-? ??-???-???-???-???-??? -???- JV- no lof, vaginal bleeding, or dec fm . 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 ??-???-???-???-???-??? -???- 14w 0d 141 lb 2 oz (-14 oz) 113/76 Negative -???-???-???-???-???-? ??-???-???-???-???-??? -???- Negative 156 -???-???-???-???-???-? ??-???-???-???-???-??? -???- JV-no lof, v aginal bleeding, or cramping. 07/26/23 -???-???-???-???-???-? ??-???-???-???-???-??? -???- 17w 6d 145 lb 8 oz (+3 lb 8 oz) 122/70 Negative -???-???-???-???-???-? ??-???-???-???-???-??? -???- Negative 161 -???-???-???-???-???-? ??-???-???-???-???-??? -???- MH-Episode o f blurred vision, numbness of lips and fingertips. [place] dizzy. RN her at [facility] (more content not included)... Normal [facility] Senior Ios Software Engineer Office Visit Reporton 11-01-2023 Senior Ios Software Engineer Office Visit Report [facility] [address] [place] [address] OFFICE VISIT Date of Service: 11/01/23 MR#: [id number] Acct: [id number] Name: MARTHA WINN Rep #: [id number] : 2000 Provider: Dr. Tracey chou MD Age/Sex: 23/F [place] [facility] [place] Status: Signed Intake Vital Signs 09/22/23 13:30 10/12/23 14:34 11/01/23 15:01 Height 5 ft 4 in 5 ft 4 in 5 ft 4 in Weight: 183 lb BMI 31.4 BP 130/74 H Intake Visit Reasons: 30 WK OB Allergies No Known Allergies Allergy (Verified 10/12/23 14:35) Last Menstrual Period: 03/23/23 [facility] Medical History Seasonal allergies Surgical History Wantagh teeth extracted Family History Grandmother Breast cancer, Onset Age: 50 Paternal Social History adopted: No household members: spouse current occupational status: employed 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 history of recent travel: Yes ([facility]- [place]) out of state: Yes out of country: No sexually active: Yes Smoking Status: Never smoker alcohol intake: current alcohol intake frequency: holidays/special occasions only details: not while substance use type: does not use well-balanced diet: daily or most days caffeine: No eating out: 1-3 times/week during the past year weight has: remained stable what type of physical activity do you participate in: walking frequency: 1-2 times per week duration: 15-30 minutes/day michaela/hoahaoism: Confucianism seatbelt use: always do you feel safe at home: Yes 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 OB Visit DAMARIS Calculator Estimated Delivery Date Method Current WG Current Estimate 12/28/23 LMP (Certain) 31w 6d Expected Delivery Route/Plan Labor Preferences- CB/BF classes: [] labor support person: [] labor intervention preferences: [] pain management options preferred: [] cut cord/dad catch: [] : [] PP control planned: [] discussed possible routes of delivery and associated risks: [] special requests: [] Specific Issue/Plans Covid status: [] Flu vaccine: [] Tdap vaccine: [] Rhogam: [] LARC form signed: [] Problem list reviewed and updated with the most current plan of care details and appropriate orders placed. Relevant counseling for the gestational age provided. Continue routine care and follow up unless otherwise noted in visit notes/problem list details Initial Weight: 142 lb Date -???-???-???-???-???-? ??-???-???-???-???-??? -???- EGA Weight BP Urine Prot -???-???-???-???-???-? ??-???-???-???-???-??? -???- Glucose FHR FuHt Pres Dilation -???-???-???-???-???-? ??-???-???-???-???-??? -???- Effaced St Visit Note 05/18/23 -???-???-???-???-???-? ??-???-???-???-???-??? -???- 8w 0d 142 lb 8 oz (+8 oz) 117/73 -???-???-???-???-???-? ??-???-???-???-???-??? -???- 163 -???-???-???-???-???-? ??-???-???-???-???-??? -???- LC- CRL 13.5 mm con with LMP. 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 ??-???-???-???-???-??? -???- 10w 0d 139 lb 6 oz (-2 lb 10 oz) 114/79 Negative -???-???-???-???-???-? ??-???-???-???-???-??? -???- Negative 160 -???-???-???-???-???-? ??-???-???-???-???-??? -???- JV- no lof, vaginal bleeding, or dec fm . 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 ??-???-???-???-???-??? -???- 14w 0d 141 lb 2 oz (-14 oz) 113/76 Negative -???-???-???-???-???-? ??-???-???-???-???-??? -???- Negative 156 -???-???-???-???-???-? ??-???-???-???-???-??? -???- JV-no lof, v aginal bleeding, or cramping. 07/26/23 -???-???-???-???-???-? ??-???-???-???-???-??? -???- 17w 6d 145 lb 8 oz (+3 lb 8 oz) 122/70 Negative -???-???-???-???-???-? ??-???-???-???-???-??? -???- Negative 161 -???-???-???-???-???-? ??-???-???-???-???-??? -???- -Episode o f blurred vision, numbness of lips and fingertips. [place] dizzy. 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 Reviewed diet, fluids, carb intake etc. FM heard w/doppler. POC glucoe 118. 08/25/23 -???-???-???-???-???-? ??-???-???-???-???-??? -???- 22w 1d 154 lb (+12 lb) 106/72 Negative -???-???-???-???-???-? ??-???-???-???-???-??? -???- Negative 150 -???-???-???-???-???-? ??-???-???-???-???-??? -???- SM- no vb lo f good fm no regualr ctx 09/22/23 (more content not included)... Normal [facility] CBC W/Diff, Automatedon - Absolute Lymph 1.86 X10 3/uL Normal 0.83-4.51 [facility] Comment on above: Performed By: #### L 501.0900, L500.4050, L100.0100 #### [facility] [address] [place], [address] Absolute Neut 7.6 X10 3/uL Normal 2.0-7.7 [facility] Comment on above: Performed By: #### L 501.0900, L500.4050, L100.0100 #### [facility] [address] [place], [address] Basophils/100 WBC (Bld) 0.4 % Normal 0-1 [facility] Comment on above: Performed By: #### L 501.0900, L500.4050, L100.0100 #### [facility] [address] [place], [address] Eosinophils/100 WBC (Bld) 0.6 % Normal 0-5 [facility] Comment on above: Performed By: #### L 501.0900, L500.4050, L100.0100 #### [facility] [address] [place], [address] Erythrocyte distribution width (RBC) [Ratio] 13.0 % Normal 11.6-14.6 [facility] Comment on above: Performed By: #### L 501.0900, L500.4050, L100.0100 #### [facility] [address] [place], [address] Hematocrit (Bld) [Volume fraction] 33.2 % Low 37-47 [facility] Comment on above: Performed By: #### L 501.0900, L500.4050, L100.0100 #### [facility] [address] [place], [address] Hemoglobin (Bld) [Mass/Vol] 10.3 g/dL Low 12.0-15.0 [facility] Comment on above: Performed By: #### L 501.0900, L500.4050, L100.0100 #### [facility] [address] [place], [address] IG% 1.500 High 0.0-0.9 [facility] Comment on above: Result Comment: IG% - Immature Granulocytes (promyelocytes, myelocytes and metamyelocytes) > 1% indicates that a LEFT SHIFT is Present. Performed By: #### L 501.0900, L500.4050, L100.0100 #### [facility] [address] [place], [address] Lymphocytes/100 WBC (Bld) 17.7 % Low 19-41 [facility] Comment on above: Performed By: #### L 501.0900, L500.4050, L100.0100 #### [facility] [address] [place], [address] MCH (RBC) [Entitic mass] 27.5 pg Normal 27.0-32.0 [facility] Comment on above: Performed By: #### L 501.0900, L500.4050, L100.0100 #### [facility] [address] [place], [address] MCHC (RBC) [Mass/Vol] 31.0 g/dL Low 32-36 [facility] Comment on above: Performed By: #### L 501.0900, L500.4050, L100.0100 #### [facility] [address] [place], [address] MCV (RBC) [Entitic vol] 88.8 fL Normal 81-99 [facility] Comment on above: Performed By: #### L 501.0900, L500.4050, L100.0100 #### [facility] [address] [place], [address] Monocytes/100 WBC (Bld) 7.3 % Normal 0-10 [facility] Comment on above: Performed By: #### L 501.0900, L500.4050, L100.0100 #### [facility] [address] [place], [address] Neutrophils/100 WBC (Bld) 72.5 % High 47-70 [facility] Comment on above: Performed By: #### L 501.0900, L500.4050, L100.0100 #### [facility] [address] [place], [address] Nucleated RBC (Bld) [#/Vol] 0 10*3/uL Normal 0-5 [facility] Comment on above: Performed By: #### L 501.0900, L500.4050, L100.0100 #### [facility] [address] [place], [address] Platelet mean volume (Bld) [Entitic vol] 10.2 fL Normal 6.2-12.0 [facility] Comment on above: Performed By: #### L 501.0900, L500.4050, L100.0100 #### [facility] [address] [place], [address] Platelets (Bld) [#/Vol] 236 10*3/uL Normal 150-450 [facility] Comment on above: Performed By: #### L 501.0900, L500.4050, L100.0100 #### [facility] [address] [place], [address] RBC (Bld) [#/Vol] 3.74 10*6/uL Low 4.2-5.4 [facility] Comment on above: Performed By: #### L 501.0900, L500.4050, L100.0100 #### [facility] [address] [place], [address] RDW SD 42.2 fl Normal 35.1-43.9 [facility] Comment on above: Performed By: #### L 501.0900, L500.4050, L100.0100 #### [facility] [address] [place], [address] WBC (Bld) [#/Vol] 10.5 10*3/uL Normal 4.4-11.0 [facility] Comment on above: Performed By: #### L 501.0900, L500.4050, L100.0100 #### [facility] [address] [place], [address] Comprehensive Metabolic Prof vaon 10-12-2023 Albumin [Mass/Vol] 2.9 g/dL Low 3.2-5.0 [facility] Comment on above: Performed By: #### L 501.0900, L500.4050, L100.0100 #### [facility] [address] [place], [address] Albumin/Globulin [Mass ratio] 0.7 {ratio} Low 0.9-2.4 [facility] Comment on above: Performed By: #### L 501.0900, L500.4050, L100.0100 #### [facility] [address] [place], [address] ALK P 60 U/L Normal 45-117 [facility] Comment on above: Performed By: #### L 501.0900, L500.4050, L100.0100 #### [facility] [address] [place], [address] ALT [Catalytic activity/Vol] 24 U/L Normal 13-56 [facility] Comment on above: Performed By: #### L 501.0900, L500.4050, L100.0100 #### [facility] [address] [place], [address] AST [Catalytic activity/Vol] 29 U/L Normal 15-37 [facility] Comment on above: Performed By: #### L 501.0900, L500.4050, L100.0100 #### [facility] [address] [place], [address] BUN/CRE 18.0 RATIO Normal 10-20 [facility] Comment on above: Performed By: #### L 501.0900, L500.4050, L100.0100 #### [facility] [address] [place], [address] CA,Total 8.9 mg/dL Normal 8.5-10.1 [facility] Comment on above: Performed By: #### L 501.0900, L500.4050, L100.0100 #### [facility] [address] [place], [address] Chloride [Moles/Vol] 108 mmol/L High 98-107 [facility] Comment on above: Performed By: #### L 501.0900, L500.4050, L100.0100 #### [facility] [address] [place], [address] CO2 [Moles/Vol] 22.0 mmol/L Normal 21.0-32.0 [facility] Comment on above: Performed By: #### L 501.0900, L500.4050, L100.0100 #### [facility] [address] [place], [address] Creatinine [Mass/Vol] 0.50 mg/dL Low 0.55-1.02 [facility] Comment on above: Result Comment: The validity of the calculated GFR GFRAA in patients over 70 years has not been determined. Clinical correlation is essential. Performed By: #### L 501.0900, L500.4050, L100.0100 #### [facility] [address] [place], [address] EST GFR - AA 195 mL/min Normal >60 [facility] Comment on above: Result Comment: Afri can Slovak GFR Calc Performed By: #### L 501.0900, L500.4050, L100.0100 #### [facility] [address] [place], [address] GAP 7 Normal 5-15 [facility] Comment on above: Performed By: #### L 501.0900, L500.4050, L100.0100 #### [facility] [address] [place], [address] GFR/1.73 sq M.predicted among non-blacks MDRD (S/P/Bld) [Vol rate/Area] 161 mL/min/{1.73_m2} Normal >60 [facility] Comment on above: Result Comment: Non- GFR Calc Performed By: #### L 501.0900, L500.4050, L100.0100 #### [facility] [address] [place], [address] Globulin (S) [Mass/Vol] 3.9 g/dL Normal 2.2-4.2 [facility] Comment on above: Performed By: #### L 501.0900, L500.4050, L100.0100 #### [facility] [address] [place], [address] Glucose [Mass/Vol] 92 mg/dL Normal 74-106 [facility] Comment on above: Performed By: #### L 501.0900, L500.4050, L100.0100 #### [facility] [address] [place], [address] Potassium [Moles/Vol] 3.7 mmol/L Normal 3.5-5.1 [facility] Comment on above: Performed By: #### L 501.0900, L500.4050, L100.0100 #### [facility] [address] [place], [address] Sodium [Moles/Vol] 137 mmol/L Normal 136-145 [facility] Comment on above: Performed By: #### L 501.0900, L500.4050, L100.0100 #### [facility] [address] [place], [address] T BILI < 0.10 Low 0.20-1.00 [facility] Comment on above: Result Comment: For patients on eltrombopag therapy, use of Dimension Ulysses TBIL is not recommended. Performed By: #### L 501.0900, L500.4050, L100.0100 #### [facility] [address] [place], [address] T PROT 6.8 g/dL Normal 6.4-8.2 [facility] Comment on above: Performed By: #### L 501.0900, L500.4050, L100.0100 #### [facility] [address] [place], [address] Urea nitrogen [Mass/Vol] 9 mg/dL Normal 7-18 [facility] Comment on above: Performed By: #### L 501.0900, L500.4050, L100.0100 #### [facility] [address] [place], [address] Senior [employer] Office Visit Reporton 10-12-2023 Senior [employer] Engineer Office Visit Report [facility] [address] [place] [address] OFFICE VISIT Date of Service: 10/12/23 MR#: [id number] Acct: [id number] Name: MARTHA WINN Rep #: [id number] : 2000 Provider: TREVIN Sears ams Age/Sex: 23/F [place] [facility] [place]: Signed Intake Vital Signs 09/22/23 13:30 10/12/23 14:34 10/12/23 14:43 Height 5 ft 4 in 5 ft 4 in Weight: 172 lb BMI 29.5 BP 131/82 H 128/74 H Blood Pressure Location Rt brachial Rt brachial Position Sitting Sitting Comment Manual Recheck Intake Visit Reasons: 28 WK OB Hris Administrator Required: No Accompanied by: Self Is patient in pain?: Yes (Ribs) Pain scale (1-10): 1 Feel stressed/tense/nervous /anxious/difficulty sleeping: only a little Allergies No Known Allergies Allergy (Verified 10/12/23 14:35) Medications ???Medication ???Instructions ???Recorded ???Confirmed ???Type PNV 153-FA 400 mcg-om3 35 mg-dha tab PO 05/13/23 10/12/23 History 25 mg-epa 5 mg-fish oil chew tablet ondansetron 4 mg disintegrating 4 mg PO Q8H #30 tabs 05/18/23 10/12/23 Rx tablet ferrous sulfate 137 mg (45 mg 137 mg PO DAILY 10/12/23 10/12/23 History iron) tablet,extended release (Slow Fe) Last Menstrual Period: 03/23/23 PFSH PFSH Medical History Seasonal allergies Surgical History [place] teeth extracted Family History Grandmother Breast cancer, Onset Age: 50 Paternal Social History adopted: No household members: spouse current occupational status: employed 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 history of recent travel: Yes ([facility]- [place]) out of state: Yes out of country: No sexually active: Yes Smoking Status: Never smoker alcohol intake: current alcohol intake frequency: holidays/special occasions only details: not while substance use type: does not use well-balanced diet: daily or most days caffeine: No eating out: 1-3 times/week during the past year weight has: remained stable what type of physical activity do you participate in: walking frequency: 1-2 times per week duration: 15-30 minutes/day michaela/hoahaoism: Confucianism seatbelt use: always do you feel safe at home: Yes 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 Elective abortions Hx Para 0 Spontaneous abortions Hx # Term Pregnancies Ectopic pregnancies Hx # Pregnancies Multiple births # of living children HPI 28 WK OB Details: MARTHA WINN is a 23 year old who presents for routine OB visit. OB Visit DAMARIS Calculator Estimated Delivery Date Method Current WG Current Estimate 12/28/23 LMP (Certain) 29w 0d Expected Delivery Route/Plan Labor Preferences- CB/BF classes: [] labor support person: [] labor intervention preferences: [] pain management options preferred: [] cut cord/dad catch: [] : [] PP control planned: [] discussed possible routes of delivery and associated risks: [] special requests: [] Specific Issue/Plans Covid status: [] Flu vaccine: [] Tdap vaccine: [] Rhogam: [] LARC form signed: [] Problem list reviewed and updated with the most current plan of care details and appropriate orders placed. Relevant counseling for the gestational age provided. Continue routine care and follow up unless otherwise noted in visit notes/problem list details Initial Weight: 142 lb Date -???-???-???-???-???-? ??-???-???-???-???-??? -???- EGA Weight BP Urine Prot -???-???-???-???-???-? ??-???-???-???-???-??? -???- Glucose FHR FuHt Pres Dilation -???-???-???-???-???-? ??-???-???-???-???-??? -???- Effaced St Visit Note 05/18/23 -???-???-???-???-???-? ??-???-???-???-???-??? -???- 8w 0d 142 lb 8 oz (+8 oz) 117/73 -???-???-???-???-???-? ??-???-???-???-???-??? -???- 163 -???-???-???-???-???-? ??-???-???-???-???-??? -???- LC- CRL 13.5 mm con with LMP. 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 ??-???-???-???-???-??? -???- 10w 0d 139 lb 6 oz (-2 lb 10 oz) 114/79 Negative -???-???-???-???-???-? ??-???-???-???-???-??? -???- Negative 160 -???-???-???-???-???-? ??-???-???-???-???-??? -???- JV- no lof, vaginal bleeding, or dec fm . 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 ??-???-???-???-???-??? -???- 14w 0d 141 lb 2 oz (-14 oz) 113/76 Negative -???-???-???-???-???-? ??-???-???-???-???-??? -???- Negative 156 -???-???-???-???-???-? ??-???-???-???-???-??? -???- JV-no lof, v aginal bleeding, or cramping. 07/26/23 - (more content not included)... Normal [facility] Protein+Creatinine Ratio,Uri neon 10-12-2023 PROT:CRE RATIO 201 mg/g CRE High 0-200 [facility] Comment on above: Performed By: #### L 501.0900, L500.4050, L100.0100 #### [facility] [address] [place], [address] Protein (U) [Mass/Vol] 8.2 mg/dL Normal <11.9 [facility] Comment on above: Performed By: #### L 501.0900, L500.4050, L100.0100 #### [facility] [address] [place], [address] UR CREAT 40.70 mg/dL Normal NO RANGE EST. [facility] Comment on above: Performed By: #### L 501.0900, L500.4050, L100.0100 #### [facility] [address] [place], [address] Senior [employer]os Software Engineer Office Visit Reporton 09-22-2023 Senior Ios Software Engineer Office Visit Report [facility] [address] [place] [address] OFFICE VISIT Date of Service: 09/22/23 MR#: [id number] Acct: [id number] Name: MARTHA WINN Rep #: [id number] : 2000 Provider: TREVIN Sears ams Age/Sex: 23/F [place] [facility] [place] Status: Signed Intake Vital Signs 08/25/23 15:16 09/22/23 13:30 Height 5 ft 4 in 5 ft 4 in Weight: 165 lb 8 oz BMI 28.4 BP 114/68 Intake Visit Reasons: 24 wk ob Chief Complaint: 24 Week OB Hris Administrator Required: No Is patient in pain?: No Allergies No Known Allergies Allergy (Verified 05/30/24 13:29) Medications ???Medication ???Instructions ???Recorded ???Confirmed ???Type PNV 153-FA 400 mcg-om3 35 mg-dha tab PO 05/13/23 09/22/23 History 25 mg-epa 5 mg-fish oil chew tablet ondansetron 4 mg disintegrating 4 mg PO Q8H #30 tabs 05/18/23 09/22/23 Rx tablet Last Menstrual Period: 03/23/23 Zika: Zika virus screening: Negative : No PFSH PFSH Medical History Seasonal allergies Surgical History [place] teeth extracted Family History Grandmother Breast cancer, Onset Age: 50 Paternal Social History adopted: No household members: spouse current occupational status: employed 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 history of recent travel: Yes ([facility]- [place]) out of state: Yes out of country: No sexually active: Yes Smoking Status: Never smoker alcohol intake: current alcohol intake frequency: holidays/special occasions only details: not while substance use type: does not use well-balanced diet: daily or most days caffeine: No eating out: 1-3 times/week during the past year weight has: remained stable what type of physical activity do you participate in: walking frequency: 1-2 times per week duration: 15-30 minutes/day michaela/hoahaoism: Confucianism seatbelt use: always do you feel safe at home: Yes 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 OB Visit DAMARIS Calculator Estimated Delivery Date Method Current WG Current Estimate 12/28/23 LMP (Certain) 26w 1d Expected Delivery Route/Plan Labor Preferences- CB/BF classes: [] labor support person: [] labor intervention preferences: [] pain management options preferred: [] cut cord/dad catch: [] : [] PP control planned: [] discussed possible routes of delivery and associated risks: [] special requests: [] Specific Issue/Plans Covid status: [] Flu vaccine: [] Tdap vaccine: [] Rhogam: [] LARC form signed: [] Problem list reviewed and updated with the most current plan of care details and appropriate orders placed. Relevant counseling for the gestational age provided. Continue routine care and follow up unless otherwise noted in visit notes/problem list details Initial Weight: 142 lb Date -???-???-???-???-???-? ??-???-???-???-???-??? -???- EGA Weight BP Urine Prot -???-???-???-???-???-? ??-???-???-???-???-??? -???- Glucose FHR FuHt Pres Dilation -???-???-???-???-???-? ??-???-???-???-???-??? -???- Effaced St Visit Note 05/18/23 -???-???-???-???-???-? ??-???-???-???-???-??? -???- 8w 0d 142 lb 8 oz (+8 oz) 117/73 -???-???-???-???-???-? ??-???-???-???-???-??? -???- 163 -???-???-???-???-???-? ??-???-???-???-???-??? -???- LC- CRL 13.5 mm con with LMP. 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 ??-???-???-???-???-??? -???- 10w 0d 139 lb 6 oz (-2 lb 10 oz) 114/79 Negative -???-???-???-???-???-? ??-???-???-???-???-??? -???- Negative 160 -???-???-???-???-???-? ??-???-???-???-???-??? -???- JV- no lof, vaginal bleeding, or dec fm . 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 ??-???-???-???-???-??? -???- 14w 0d 141 lb 2 oz (-14 oz) 113/76 Negative -???-???-???-???-???-? ??-???-???-???-???-??? -???- Negative 156 -???-???-???-???-???-? ??-???-???-???-???-??? -???- JV-no lof, v aginal bleeding, or cramping. 07/26/23 -???-???-???-???-???-? ??-???-???-???-???-??? -???- 17w 6d 145 lb 8 oz (+3 lb 8 oz) 122/70 Negative -???-???-???-???-???-? ??-???-???-???-???-??? -???- Negative 161 -???-???-???-???-???-? ??-???-???-???-???-??? -???- MH-Episode o f blurred vision, numbness of lips and fingert (more content not included)... Normal [facility] CBC W/Diff, Automatedon 05-2 Absolute Lymph 1.60 X10 3/uL Normal 0.83-4.51 [facility] Comment on above: Performed By: #### L 501.0250, L3890.6005, L100.0100, L509.8000 #### [facility] [address] [place], [address] Absolute Neut 6.8 X10 3/uL Normal 2.0-7.7 [facility] Comment on above: Performed By: #### L 501.0250, L3890.6005, L100.0100, L509.8000 #### [facility] [address] [place], [address] Basophils/100 WBC (Bld) 0.4 % Normal 0-1 [facility] Comment on above: Performed By: #### L 501.0250, L3890.6005, L100.0100, L509.8000 #### [facility] [address] [place], [address] Eosinophils/100 WBC (Bld) 0.5 % Normal 0-5 [facility] Comment on above: Performed By: #### L 501.0250, L3890.6005, L100.0100, L509.8000 #### [facility] [address] [place], [address] Erythrocyte distribution width (RBC) [Ratio] 12.5 % Normal 11.6-14.6 [facility] Comment on above: Performed By: #### L 501.0250, L3890.6005, L100.0100, L509.8000 #### [facility] [address] [place], [address] Hematocrit (Bld) [Volume fraction] 32.3 % Low 37-47 [facility] Comment on above: Performed By: #### L 501.0250, L3890.6005, L100.0100, L509.8000 #### [facility] [address] [place], [address] Hemoglobin (Bld) [Mass/Vol] 10.1 g/dL Low 12.0-15.0 [facility] Comment on above: Performed By: #### L 501.0250, L3890.6005, L100.0100, L509.8000 #### [facility] [address] [place], [address] IG% 1.000 High 0.0-0.9 [facility] Comment on above: Result Comment: IG% - Immature Granulocytes (promyelocytes, myelocytes and metamyelocytes) > 1% indicates that a LEFT SHIFT is Present. Performed By: #### L 501.0250, L3890.6005, L100.0100, L509.8000 #### [facility] [address] [place], [address] Lymphocytes/100 WBC (Bld) 17.3 % Low 19-41 [facility] Comment on above: Performed By: #### L 501.0250, L3890.6005, L100.0100, L509.8000 #### [facility] [address] [place], [address] MCH (RBC) [Entitic mass] 28.0 pg Normal 27.0-32.0 [facility] Comment on above: Performed By: #### L 501.0250, L3890.6005, L100.0100, L509.8000 #### [facility] [address] [place], [address] MCHC (RBC) [Mass/Vol] 31.3 g/dL Low 32-36 [facility] Comment on above: Performed By: #### L 501.0250, L3890.6005, L100.0100, L509.8000 #### [facility] [address] [place], [address] MCV (RBC) [Entitic vol] 89.5 fL Normal 81-99 [facility] Comment on above: Performed By: #### L 501.0250, L3890.6005, L100.0100, L509.8000 #### [facility] [address] [place], [address] Monocytes/100 WBC (Bld) 6.9 % Normal 0-10 [facility] Comment on above: Performed By: #### L 501.0250, L3890.6005, L100.0100, L509.8000 #### [facility] [address] [place], [address] Neutrophils/100 WBC (Bld) 73.9 % High 47-70 [facility] Comment on above: Performed By: #### L 501.0250, L3890.6005, L100.0100, L509.8000 #### [facility] [address] [place], [address] Nucleated RBC (Bld) [#/Vol] 0 10*3/uL Normal 0-5 [facility] Comment on above: Performed By: #### L 501.0250, L3890.6005, L100.0100, L509.8000 #### [facility] [address] [place], [address] Platelet mean volume (Bld) [Entitic vol] 10.2 fL Normal 6.2-12.0 [facility] Comment on above: Performed By: #### L 501.0250, L3890.6005, L100.0100, L509.8000 #### [facility] [address] [place], [address] Platelets (Bld) [#/Vol] 249 10*3/uL Normal 150-450 [facility] Comment on above: Performed By: #### L 501.0250, L3890.6005, L100.0100, L509.8000 #### [facility] [address] [place], [address] RBC (Bld) [#/Vol] 3.61 10*6/uL Low 4.2-5.4 [facility] Comment on above: Performed By: #### L 501.0250, L3890.6005, L100.0100, L509.8000 #### [facility] [address] [place], [address] RDW SD 40.7 fl Normal 35.1-43.9 [facility] Comment on above: Performed By: #### L 501.0250, L3890.6005, L100.0100, L509.8000 #### [facility] [address] [place], [address] WBC (Bld) [#/Vol] 9.3 10*3/uL Normal 4.4-11.0 [facility] Comment on above: Performed By: #### L 501.0250, L3890.6005, L100.0100, L509.8000 #### [facility] [address] [place], [address] Glucose Challenge Gest 1H 50 osman 09-21-2023 GLU GEST 50g 1H 108 mg/dL Normal 70-140 [facility] Comment on above: Performed By: #### L 501.0250, L3890.6005, L100.0100, L509.8000 #### [facility] [facility] [address] [place], [address] HIV - WCHon 09-21-2023 HIV Non-Reactive Normal Nonreactive [facility] Comment on above: Performed By: #### L 501.0250, L3890.6005, L100.0100, L509.8000 ####[facility] [address] [place], [address] L509.8000on 09-21-2023 Syphilis Abs Non-Reactive Normal [facility] Comment on above: Performed By: #### L 501.0250, L3890.6005, L100.0100, L509.8000 #### [facility] [address] [place], [address] Senior [employer]os Software Engineer Office Visit Reporton 08-25-2023 Senior Ios Software Engineer Office Visit Report [facility] [address] [place] [address] OFFICE VISIT Date of Service: 08/25/23 MR#: [id number] Acct: [id number] Name: MARTHA WINN Rep #: [id number] : 2000 Provider: Dr. Tracey chou MD Age/Sex: 22/F [place] [facility] [place]: Signed Intake Vital Signs 07/26/23 09:44 08/25/23 15:15 08/25/23 15:16 Height 5 ft 4 in 5 ft 4 in 5 ft 4 in Weight: 154 lb BMI 26.4 BP 106/72 Intake Visit Reasons: 21 WK OB Hris Administrator Required: No Is patient in pain?: No Allergies No Known Allergies Allergy (Verified 08/25/23 15:20) Medications PNV 153-FA 400 mcg-om3 35 mg-dha 25 mg-epa 5 mg-fish oil chew tablet tab PO 05/13/23 [History Confirmed 08/25/23] ondansetron 4 mg disintegrating tablet 4 mg PO Q8H #30 tabs 05/18/23 [Rx Confirmed 08/25/23] Last Menstrual Period: 03/23/23 Zika: Zika virus screening: Negative : No PFSH PFSH Medical History Seasonal allergies Surgical History Wantagh teeth extracted Family History Grandmother Breast cancer, Onset Age: 50 Paternal Social History adopted: No household members: spouse current occupational status: employed 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 history of recent travel: Yes ([facility]- [place]) out of state: Yes out of country: No sexually active: Yes Smoking Status: Never smoker alcohol intake: current alcohol intake frequency: holidays/special occasions only details: not while substance use type: does not use well-balanced diet: daily or most days caffeine: No eating out: 1-3 times/week during the past year weight has: remained stable what type of physical activity do you participate in: walking frequency: 1-2 times per week duration: 15-30 minutes/day michaela/hoahaoism: Confucianism seatbelt use: always do you feel safe at home: Yes 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 OB Visit DAMARIS Calculator Estimated Delivery Date Method Current WG Current Estimate 12/28/23 LMP (Certain) 22w 1d Expected Delivery Route/Plan Labor Preferences- CB/BF classes: [] labor support person: [] labor intervention preferences: [] pain management options preferred: [] cut cord/dad catch: [] : [] PP control planned: [] discussed possible routes of delivery and associated risks: [] special requests: [] Specific Issue/Plans Covid status: [] Flu vaccine: [] Tdap vaccine: [] Rhogam: [] LARC form signed: [] Problem list reviewed and updated with the most current plan of care details and appropriate orders placed. Relevant counseling for the gestational age provided. Continue routine care and follow up unless otherwise noted in visit notes/problem list details Initial Weight: 142 lb Date -???-???-???-???-???-? ??-???-???-???-???-??? -???- EGA Weight BP Urine Prot -???-???-???-???-???-? ??-???-???-???-???-??? -???- Glucose FHR FuHt Pres Dilation -???-???-???-???-???-? ??-???-???-???-???-??? -???- Effaced St Visit Note 05/18/23 -???-???-???-???-???-? ??-???-???-???-???-??? -???- 8w 0d 142 lb 8 oz (+8 oz) 117/73 -???-???-???-???-???-? ??-???-???-???-???-??? -???- 163 -???-???-???-???-???-? ??-???-???-???-???-??? -???- LC- CRL 13.5 mm con with LMP. 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 ??-???-???-???-???-??? -???- 10w 0d 139 lb 6 oz (-2 lb 10 oz) 114/79 Negative -???-???-???-???-???-? ??-???-???-???-???-??? -???- Negative 160 -???-???-???-???-???-? ??-???-???-???-???-??? -???- JV- no lof, vaginal bleeding, or dec fm . 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 ??-???-???-???-???-??? -???- 14w 0d 141 lb 2 oz (-14 oz) 113/76 Negative -???-???-???-???-???-? ??-???-???-???-???-??? -???- Negative 156 -???-???-???-???-???-? ??-???-???-???-???-??? -???- JV-no lof, v aginal bleeding, or cramping. 07/26/23 -???-???-???-???-???-? ??-???-???-???-???-??? -???- 17w 6d 145 lb 8 oz (+3 lb 8 oz) 122/70 Negative -???-???-???-???-???-? ??-???-???-???-???-??? -???- Negative 161 -???-???-???-???-???-? ??-???-???-???-???-??? -???- -Episode o f blurred vision, numbness of lips and fingertips. [place] dizzy. 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 Reviewed diet, fluids (more content not included)... Normal [facility] Absolute lymphocyte countOrd ered By: Nuvia Silva on 07-26-2023 Lymphocytes Auto (Unsp spec) [#/Vol] 1.44 10*3/uL 0.83-4.51 [facility] Automated lymphocyte count a s percentage of total leukocytesOrdered By: Nuvia Silva on 07-26-2023 Lymphocytes/100 WBC Auto (Unsp spec) 15.5 % 19-41 [facility] Basophil percentageOrdered B y: Nuvia Silva on 07-26-2023 Basophils/100 WBC (Bld) 0.4 % 0-1 [facility] Eosinophils/100 WBC (Bld) 0.4 % 0-5 [facility] Hemoglobin (Bld) [Mass/Vol] 11.2 g/dL 12.0-15.0 [facility] Monocytes/100 WBC (Bld) 4.4 % 0-10 [facility] Neutrophils (Bld) [#/Vol] 7.3 10*3/uL 2.0-7.7 [facility] Neutrophils/100 WBC (Bld) 78.8 % 47-70 [facility] WBC (Bld) [#/Vol] 9.3 10*3/uL 4.4-11.0 [facility] CBC W/Diff, Automatedon Absolute Lymph 1.44 X10 3/uL Normal 0.83-4.51 [facility] Comment on above: Performed By: #### L 501.0900, L500.4050, L100.0100 #### [facility] [address] [place], [address] Absolute Neut 7.3 X10 3/uL Normal 2.0-7.7 [facility] Comment on above: Performed By: #### L 501.0900, L500.4050, L100.0100 #### [facility] [address] [place], [address] Basophils/100 WBC (Bld) 0.4 % Normal 0-1 [facility] Comment on above: Performed By: #### L 501.0900, L500.4050, L100.0100 #### [facility] [address] [place], [address] Eosinophils/100 WBC (Bld) 0.4 % Normal 0-5 [facility] Comment on above: Performed By: #### L 501.0900, L500.4050, L100.0100 #### [facility] [address] [place], [address] Erythrocyte distribution width (RBC) [Ratio] 13.4 % Normal 11.6-14.6 [facility] Comment on above: Performed By: #### L 501.0900, L500.4050, L100.0100 #### [facility] [address] [place], [address] Hematocrit (Bld) [Volume fraction] 34.5 % Low 37-47 [facility] Comment on above: Performed By: #### L 501.0900, L500.4050, L100.0100 #### [facility] [address] [place], [address] Hemoglobin (Bld) [Mass/Vol] 11.2 g/dL Low 12.0-15.0 [facility] Comment on above: Performed By: #### L 501.0900, L500.4050, L100.0100 #### [facility] [address] [place], [address] IG% 0.500 Normal 0.0-0.9 [facility] Comment on above: Result Comment: IG% - Immature Granulocytes (promyelocytes, myelocytes and metamyelocytes) > 1% indicates that a LEFT SHIFT is Present. Performed By: #### L 501.0900, L500.4050, L100.0100 #### [facility] [address] [place], [address] Lymphocytes/100 WBC (Bld) 15.5 % Low 19-41 [facility] Comment on above: Performed By: #### L 501.0900, L500.4050, L100.0100 #### [facility] [address] [place], [address] MCH (RBC) [Entitic mass] 28.6 pg Normal 27.0-32.0 [facility] Comment on above: Performed By: #### L 501.0900, L500.4050, L100.0100 #### [facility] [address] [place], [address] MCHC (RBC) [Mass/Vol] 32.5 g/dL Normal 32-36 [facility] Comment on above: Performed By: #### L 501.0900, L500.4050, L100.0100 #### [facility] [address] [place], [address] MCV (RBC) [Entitic vol] 88.2 fL Normal 81-99 [facility] Comment on above: Performed By: #### L 501.0900, L500.4050, L100.0100 #### [facility] [address] [place], [address] Monocytes/100 WBC (Bld) 4.4 % Normal 0-10 [facility] Comment on above: Performed By: #### L 501.0900, L500.4050, L100.0100 #### [facility] [address] [place], [address] Neutrophils/100 WBC (Bld) 78.8 % High 47-70 [facility] Comment on above: Performed By: #### L 501.0900, L500.4050, L100.0100 #### [facility] [address] [place], [address] Nucleated RBC (Bld) [#/Vol] 0 10*3/uL Normal 0-5 [facility] Comment on above: Performed By: #### L 501.0900, L500.4050, L100.0100 #### [facility] [address] [place], [address] Platelet mean volume (Bld) [Entitic vol] 9.9 fL Normal 6.2-12.0 [facility] Comment on above: Performed By: #### L 501.0900, L500.4050, L100.0100 #### [facility] [address] [place], [address] Platelets (Bld) [#/Vol] 245 10*3/uL Normal 150-450 [facility] Comment on above: Performed By: #### L 501.0900, L500.4050, L100.0100 #### [facility] [address] [place], [address] RBC (Bld) [#/Vol] 3.91 10*6/uL Low 4.2-5.4 [facility] Comment on above: Performed By: #### L 501.0900, L500.4050, L100.0100 #### [facility] [address] [place], [address] RDW SD 43.2 fl Normal 35.1-43.9 [facility] Comment on above: Performed By: #### L 501.0900, L500.4050, L100.0100 #### [facility] [address] [place], [address] WBC (Bld) [#/Vol] 9.3 10*3/uL Normal 4.4-11.0 [facility] Comment on above: Performed By: #### L 501.0900, L500.4050, L100.0100 #### [facility] [address] [place], [address] Determination of erythrocyte mean corpuscular volume (MCV)Ordered By: Nuvia Silva on 07-26-2023 MCV (RBC) [Entitic vol] 88.2 fL 81-99 [facility] Erythrocyte distribution wid th ratioOrdered By: Nuvia Silva on 07-26-2023 Erythrocyte distribution width (RBC) [Ratio] 13.4 % 11.6-14.6 [facility] Erythrocyte distribution wid th standard deviationOrdered By: Nuvia Silva on 07-26-2023 Erythrocyte distribution width (RBC) [Entitic vol] 43.2 fL 35.1-43.9 [facility] Hematocrit Auto (Bld) [Volum e fraction]Ordered By: Nuvia Silva on 07-26-2023 Hematocrit (Bld) [Volume fraction] 34.5 % 37-47 [facility] Immature granulocytes/100 WB C Auto (Bld)Ordered By: Nuvia Silva on 07-26-2023 Immature granulocytes/100 WBC (Bld) 0.500 % 0.0-0.9 [facility] Comment on above: IG% - Immature Granu locytes (promyelocytes, myelocytes and metamyelocytes) > 1% indicates that a LEFT SHIFT is Present. Laboratory - Chemistry and C hemistry - challengeon 07-26-2023 Bilirubin Ql (U) Negative [facility] Glucose Ql (U) Negative [facility] Ketones Ql (U) Negative [facility] pH (U) 5.0 [pH] [facility] Specific gravity (U) [Rel density] 1.015 [facility] Urobilinogen (U) [Mass/Vol] Negative [facility] - Hematology and Cell countsOrdered By: Nuvia Silva on 07-26-2023 MCH (RBC) [Entitic mass] 28.6 pg 27.0-32.0 [facility] MCHC (RBC) [Mass/Vol] 32.5 g/dL 32-36 [facility] Nucleated RBC/100 WBC (Bld) [Ratio] 0 % 0-5 [facility] Platelet mean volume (Bld) [Entitic vol] 9.9 fL 6.2-12.0 [facility] Platelets (Bld) [#/Vol] 245 10*3/uL 150-450 [facility] - Hematology and Cell countson 07-26-2023 Hemoglobin Ql (U) Negative [facility] - Specimen inform ationon 07-26-2023 Clarity (U) Clear [facility] Color (U) YELLOW [facility] - Urinalysison Nitrite Ql (U) Negative [facility] Protein Ql (U) Negative [facility] No Panel Informationon 07-25 Urine Leukocytes Negatve [facility] Urine Non-Hemolyzed Blood Negative [facility] Senior Ios Software Engineer Office Visit Reporton 07-26-2023 Senior Ios Software Engineer Office Visit Report [facility] [address] [place] [address] OFFICE VISIT Date of Service: 07/26/23 MR#: [id number] Acct: [id number] Name: MARTHA WINN Rep #: [id number] : 2000 Provider: FATMATA dorantes Age/Sex: 22/F [place] [facility] [place] Status: Signed Intake Vital Signs 06/29/23 15:02 07/26/23 09:44 Height 5 ft 4 in 5 ft 4 in Weight: 145 lb 8 oz BMI 25.0 BP 122/70 H Intake Visit Reasons: 18 weeks Chief Complaint: 18 Week OB Hris Administrator Required: No Is patient in pain?: No Allergies No Known Allergies Allergy (Verified 07/26/23 09:45) Medications PNV 153-FA 400 mcg-om3 35 mg-dha 25 mg-epa 5 mg-fish oil chew tablet tab PO 05/13/23 [History Confirmed 07/26/23] ondansetron 4 mg disintegrating tablet 4 mg PO Q8H #30 tabs 05/18/23 [Rx Confirmed 07/26/23] Last Menstrual Period: 03/23/23 Zika: Zika virus screening: Negative : No PFSH PFSH Medical History Seasonal allergies Surgical History Want[place] teeth extracted Family History Grandmother Breast cancer, Onset Age: 50 Paternal Social History adopted: No household members: spouse current occupational status: employed 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 history of recent travel: Yes ([facility]- [facility]) out of state: Yes out of country: No sexually active: Yes Smoking Status: Never smoker alcohol intake: current alcohol intake frequency: holidays/special occasions only details: not while substance use type: does not use well-balanced diet: daily or most days caffeine: No eating out: 1-3 times/week during the past year weight has: remained stable what type of physical activity do you participate in: walking frequency: 1-2 times per week duration: 15-30 minutes/day michaela/hoahaoism: Confucianism seatbelt use: always do you feel safe at home: Yes 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 OB Visit DAMARIS Calculator Estimated Delivery Date Method Current WG Current Estimate 12/28/23 LMP (Certain) 17w 6d Expected Delivery Route/Plan Labor Preferences- CB/BF classes: [] labor support person: [] labor intervention preferences: [] pain management options preferred: [] cut cord/dad catch: [] : [] PP control planned: [] discussed possible routes of delivery and associated risks: [] special requests: [] Specific Issue/Plans Covid status: [] Flu vaccine: [] Tdap vaccine: [] Rhogam: [] LARC form signed: [] Problem list reviewed and updated with the most current plan of care details and appropriate orders placed. Relevant counseling for the gestational age provided. Continue routine care and follow up unless otherwise noted in visit notes/problem list details Initial Weight: 142 lb Date -???-???-???-???-???-? ??-???-???-???-???-??? -???- EGA Weight BP Urine Prot -???-???-???-???-???-? ??-???-???-???-???-??? -???- Glucose FHR FuHt Pres Dilation -???-???-???-???-???-? ??-???-???-???-???-??? -???- Effaced St Visit Note 05/18/23 -???-???-???-???-???-? ??-???-???-???-???-??? -???- 8w 0d 142 lb 8 oz (+8 oz) 117/73 -???-???-???-???-???-? ??-???-???-???-???-??? -???- 163 -???-???-???-???-???-? ??-???-???-???-???-??? -???- LC- CRL 13.5 mm con with LMP. 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 ??-???-???-???-???-??? -???- 10w 0d 139 lb 6 oz (-2 lb 10 oz) 114/79 Negative -???-???-???-???-???-? ??-???-???-???-???-??? -???- Negative 160 -???-???-???-???-???-? ??-???-???-???-???-??? -???- JV- no lof, vaginal bleeding, or dec fm . 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 ??-???-???-???-???-??? -???- 14w 0d 141 lb 2 oz (-14 oz) 113/76 Negative -???-???-???-???-???-? ??-???-???-???-???-??? -???- Negative 156 -???-???-???-???-???-? ??-???-???-???-???-??? -???- JV-no lof, v aginal bleeding, or cramping. 07/26/23 -???-???-???-???-???-? ??-???-???-???-???-??? -???- 17w 6d 145 lb 8 oz (+3 lb 8 oz) 122/70 Negative -???-???-???-???-???-? ??-???-???-???-???-??? -???- Negative 161 -???-???-???-???-???-? ??-???-???-???-???-??? -???- MH-Episode o f blurred vision, numbness of lips and fingertips. [place] dizzy. RN her at [facility] and came up to office (more content not included)... Normal [facility] RBC Auto (Bld) [#/Vol]Ordere d By: Nuvia Silva on 07-26-2023 RBC (Bld) [#/Vol] 3.91 10*6/uL 4.2-5.4 [facility] - Chemistry and C hemistry - challengeon 06-29-2023 Glucose Ql (U) Negative [facility] - Urinalysison Protein Ql (U) Negative [facility] Senior Ios Software Engineer Office Visit Reporton 06-29-2023 Senior Ios Software Engineer Office Visit Report [facility] [address] [place] [address] OFFICE VISIT Date of Service: 06/29/23 MR#: [id number] Acct: [id number] Name: PAMARTHADIONICIO GAXIOLA Rep #: [id number] : 2000 Provider: Dr. Olivia Van de Velde, DO Age/Sex: 22/F [place] [facility] [place] Status: Signed Intake Vital Signs 06/03/23 14:18 06/29/23 15:02 Height 5 ft 4 in 5 ft 4 in Weight: 141 lb 2 oz BMI 24.2 BP 113/76 Intake Visit Reasons: 14 w ob Hris Administrator Required: No Is patient in pain?: No Allergies No Known Allergies Allergy (Verified 06/29/23 15:03) Medications PNV 153-FA 400 mcg-om3 35 mg-dha 25 mg-epa 5 mg-fish oil chew tablet tab PO 05/13/23 [History Confirmed 06/29/23] ondansetron 4 mg disintegrating tablet 4 mg PO Q8H #30 tabs 05/18/23 [Rx Confirmed 06/29/23] Last Menstrual Period: 03/23/23 Zika: Zika virus screening: Negative : No PFSH PFSH Medical History Seasonal allergies Surgical History Want[place] teeth extracted Family History Grandmother Breast cancer, Onset Age: 50 Paternal Social History adopted: No household members: spouse current occupational status: employed 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 history of recent travel: Yes ([facility]- [facility]) out of state: Yes out of country: No sexually active: Yes Smoking Status: Never smoker alcohol intake: current alcohol intake frequency: holidays/special occasions only details: not while substance use type: does not use well-balanced diet: daily or most days caffeine: No eating out: 1-3 times/week during the past year weight has: remained stable what type of physical activity do you participate in: walking frequency: 1-2 times per week duration: 15-30 minutes/day michaela/hoahaoism: Confucianism seatbelt use: always do you feel safe at home: Yes 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 OB Visit DAMARIS Calculator Estimated Delivery Date Method Current WG Current Estimate 12/28/23 LMP (Certain) 14w 0d Expected Delivery Route/Plan Labor Preferences- CB/BF classes: [] labor support person: [] labor intervention preferences: [] pain management options preferred: [] cut cord/dad catch: [] : [] PP control planned: [] discussed possible routes of delivery and associated risks: [] special requests: [] Specific Issue/Plans Covid status: [] Flu vaccine: [] Tdap vaccine: [] Rhogam: [] LARC form signed: [] Problem list reviewed and updated with the most current plan of care details and appropriate orders placed. Relevant counseling for the gestational age provided. Continue routine care and follow up unless otherwise noted in visit notes/problem list details Initial Weight: 142 lb Date -???-???-???-???-???-? ??-???-???-???-???-??? -???- EGA Weight BP Urine Prot -???-???-???-???-???-? ??-???-???-???-???-??? -???- Glucose FHR FuHt Pres Dilation -???-???-???-???-???-? ??-???-???-???-???-??? -???- Effaced St Visit Note 05/18/23 -???-???-???-???-???-? ??-???-???-???-???-??? -???- 8w 0d 142 lb 8 oz (+8 oz) 117/73 -???-???-???-???-???-? ??-???-???-???-???-??? -???- 163 -???-???-???-???-???-? ??-???-???-???-???-??? -???- LC- CRL 13.5 mm con with LMP. 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 ??-???-???-???-???-??? -???- 10w 0d 139 lb 6 oz (-2 lb 10 oz) 114/79 Negative -???-???-???-???-???-? ??-???-???-???-???-??? -???- Negative 160 -???-???-???-???-???-? ??-???-???-???-???-??? -???- JV- no lof, vaginal bleeding, or dec fm . 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 ??-???-???-???-???-??? -???- 14w 0d 141 lb 2 oz (-14 oz) 113/76 Negative -???-???-???-???-???-? ??-???-???-???-???-??? -???- Negative 156 -???-???-???-???-???-? ??-???-???-???-???-??? -???- JV-no lof, v aginal bleeding, or cramping. ACOG First Trimester First Trimester: Desire for , Alcohol, Tobacco Cessation, Illicit/Recreational Drug/Substance Use, Intimate Partner Violence, Barriers to care, Unstable Housing, Communication Barriers, Environmental/Work Hazards, Anticipated Course of Care, Toxoplasmosis Precations, Use of Any medications, Sexual activity, Exercise, Dental (more content not included)... Normal [facility] Hepatitis B Core Ab Totalon 06-05-2023 HEP B CORE,TOT Negative Normal Negative [facility] Comment on above: Order Comment: Has p t arrived? Y Result Comment: Perf ormed at: - [facility] [address] [id number] Paddle Dyeing Machine Operator: James Montaño PhD, Phone: [phone] Performed By: #### L 501.0925, L500.9170, L100.0100 #### [facility] [address] [place], [place], [address] Emergency Department Summary on 06-03-2023 Emergency Department Summary [facility] Medical Records Department [address] [place] [address] Emergency Department Summary 06/03/23 MR#: [id number] Acct: [id number] Name: MARTHA WINN Rep #: [id number] : 2000 22 From: Olivia Collazo MD PCP: FATMATA Mueller Status:REG REF Location: ED HPI History of Present Illness Chief Complaint: Occup Expose Informant: patient Narrative Narrative: Patient present secondary to occupational exposure. 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 She irrigated her eyes for 15 to 20 minutes prior to arrival. Patient's hepatitis shots are up-to-date. She is currently 10 weeks . 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 history of recent travel: Yes ([facility]- [place]) out of state: Yes out of country: No sexually active: Yes Smoking Status: Never smoker alcohol intake: current alcohol intake frequency: holidays/special occasions only details: not while substance use type: does not use well-balanced diet: daily or most days caffeine: No eating out: 1-3 times/week during the past year weight has: remained stable what type of physical activity do you participate in: walking frequency: 1-2 times per week duration: 15-30 minutes/day michaela/hoahaoism: Confucianism seatbelt use: always do you feel safe at home: Yes 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 ED Constitutional Constitutional ED: Denies chills or fever(s) Eyes Eyes: Denies change in vision or discharge from eye(s) ENT ENT ED: Denies discharge from eye(s) or rhinorrhea Cardiovascular Cardiovascular: Denies chest pain Respiratory/Chest Respiratory/Chest: Denies cough or dyspnea Gastrointestinal Gastrointestinal: Reports nausea; Denies abdominal pain or vomiting Musculoskeletal Musculoskeletal: Denies back pain or extremity pain Integumentary Denies Abrasions or rash Neurologic Neurologic: Denies headache(s) or weakness Psychiatric Psychiatric: Denies anxiety or depression Allergic/Immunologic Allergic/Immunologic ED: Denies lip swelling or urticaria EXAM Physical Exam Const Vital Signs: 06/03/23 14:18 Temperature 98 F Temperature Source Temporal Oxygen Delivery Method Room Air Positive well nourished and well developed General Appearance ED: well developed HEENT Reports moist mucous membranes Eyes PERRL and EOMs intact bilaterally Chest Wall inspection of chest normal and palpation of chest normal Resp normal respiratory effort and clear to auscultation bilaterally Cardio regular rate and regular rhythm GI non-tender Palpation: soft Neuro oriented x3 Skin no rashes or lesions noted MDM MDM MDM Narrative Medical decision making narrative: Lab work was obtained per protocol from both patient as well as the surgical patient that exposed her. She will follow-up with employee health. Discharge Plan Triage Chief Complaint: Occup Expose ED Provider: Olivia Collazo Dx/Rx/DC Orders Clinical Impression: Exposure to body fluid Instructions: ED Body Fluid Exposure Not ... Prescriptions: No Action PNV no.[id number]-dha-epa- fish 400 mcg-35 mg- 25 mg-5 mg tablet,chewable PO ondansetron 4 mg tablet,disintegrating 4 mg PO Q8H Qty: 30 3RF Primary Care Provider: Sonam Martinez NP Referrals: Health,Employee [Non-Staff -Ordering Privileges] - 3-5 Days Sonam Martinez NP, [employer]DER[employer] [Primary Care Provider] - Disposition Disposition: Home, Self Care What to do if you have Problems For any increased pain, shortness of breath, bleeding, nausea or vomiting, chest pain, or any unexpected problems, contact your Primary Care Provider. Call [facility] ([phone]) or report to the closest Emergency Room. Call 911 if necessary. 06/03/23 2351 Cosigner Signature (if applicable): CC: [employer] Sonam Martinez Signed Normal [facility] HIV - WCHon 06-03-2023 HIV Non-Reactive Normal Nonreactive [facility] Comment on above: Order Comment: Has p t arrived? YReason for Exam: ED Expose Person Protocol Performed By: #### L 501.0900, L500.4050, L100.0100 #### [facility] [address] [facility] [place], [place], [id number] HIV 1 and HIV-2 antibody ass ay with HIV-1 p24 antigen detectionOrdered By: ED PROVIDER on 06-03-2023 HIV 1+2 Ab+HIV1 p24 Ag IA Ql Non-Reactive Nonreactive [facility] Hepatitis B Surface Antibody on 06-03-2023 HEP B Surf Ab Reactive Normal [facility] Comment on above: Order Comment: Has p t arrived? YReason for Exam: ED Expose Person Protocol Result Comment: Non Reactive: Inconsistent with immunity less than <10 mIU/mL Reactive: Consistent with immunity greater than or equal to 10 mIU/mL Performed By: #### L 501.0900, L500.4050, L100.0100 #### [facility] [address] [place], [address] Hepatitis B Surface Antigeno n 06-03-2023 HEP B Surf Ag Non-Reactive Normal Nonreactive [facility] Comment on above: Order Comment: Has p t arrived? YReason for Exam: ED Expose Person Protocol Performed By: #### L 501.0900, L500.4050, L100.0100 #### [facility] [address] [place], [address] Hepatitis C Antibodyon 06-03 Hepatitis C Ab Non-Reactive Normal Nonreactive [facility] Comment on above: Order Comment: Has p t arrived? YReason for Exam: ED Expose Person Protocol Result Comment: Non Reactive: < 0.8 Equivocal: >/= 0.8 to < 1.0 Reactive: >/= 1.0 The CDC recommends that a reactive/equivocal HCV antibody result be followed up by the HCV Nucleic Acid Amplification test (790681) Performed By: #### L 501.0900, L500.4050, L100.0100 #### [facility] [address] [place], [address] No Panel InformationOrdered By: ED PROVIDER on 06-03-2023 Hepatitis B Surface Antigen Non-Reactive Nonreactive [facility] Hepatitis C Antibody Non-Reactive Nonreactive [facility] Comment on above: Non Reactive: < 0.8 Equivocal: >/= 0.8 to < 1.0 Reactive: >/= 1.0The CDC recommends that a reactive/equivocal HCV antibody result be followed up by the HCV Nucleic Acid Amplificationtest (678113) Serum hepatitis B virus core antibody detectionOrdered By: ED PROVIDER on 06-03-2023 HBV core Ab Ql (S) Negative Negative [facility] Comment on above: Performed at: [address] [id number] Director: James Montaño PhD, Phone: [phone] Serum hepatitis B virus surf obed antibody IgG detectionOrdered By: ED PROVIDER on 06-03-2023 HBV surface IgG Ql (S) Reactive [facility] Comment on above: Non Reactive: Incons istent with immunity less than <10 mIU/mL Reactive: Consistent with immunity greater than or equal to 10 mIU/mL Laboratory - Chemistry and C hemistry - challengeon 06-01-2023 Glucose Ql (U) Negative [facility] - Urinalysison Protein Ql (U) Negative [facility] Senior Ios Software Engineer Office Visit Reporton 06-01-2023 Senior Ios Software Engineer Office Visit Report [facility] [address] [place] [address] OFFICE VISIT Date of Service: 06/01/23 MR#: [id number] Acct: [id number] Name: MARTHA WINN Rep #: [id number] : 2000 Provider: Dr. Olivia Rg DO Age/Sex: 22/F Location[place] [facility] [place]: Signed Intake Vital Signs 05/18/23 13:01 05/20/23 15:31 06/01/23 13:04 06/01/23 13:04 Height 5 ft 4 in 5 ft 4 in 5 ft 4 in 5 ft 4 in Weight: 139 lb 6 oz BMI 23.9 BP 114/79 Intake Visit Reasons: 10 WK OB Hris Administrator Required: No Is patient in pain?: No Allergies No Known Allergies Allergy (Verified 06/01/23 13:03) Medications PNV 153-FA 400 mcg-om3 35 mg-dha 25 mg-epa 5 mg-fish oil chew tablet tab PO 05/13/23 [History Confirmed 06/01/23] ondansetron 4 mg disintegrating tablet 4 mg PO Q8H #30 tabs 05/18/23 [Rx Confirmed 06/01/23] Last Menstrual Period: 03/23/23 Zika: Zika virus screening: Negative : No PFSH PFSH Medical History Seasonal allergies Surgical History [place] teeth extracted Family History Grandmother Breast cancer, Onset Age: 50 Paternal Social History adopted: No household members: spouse current occupational status: employed 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 history of recent travel: Yes ([facility]- [place]) out of state: Yes out of country: No sexually active: Yes Smoking Status: Never smoker alcohol intake: current alcohol intake frequency: holidays/special occasions only details: not while substance use type: does not use well-balanced diet: daily or most days caffeine: No eating out: 1-3 times/week during the past year weight has: remained stable what type of physical activity do you participate in: walking frequency: 1-2 times per week duration: 15-30 minutes/day michaela/hoahaoism: Confucianism seatbelt use: always do you feel safe at home: Yes 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 OB Visit DAMARIS Calculator Estimated Delivery Date Method Current WG Current Estimate 12/28/23 LMP (Certain) 10w 0d Expected Delivery Route/Plan Labor Preferences- CB/BF classes: [] labor support person: [] labor intervention preferences: [] pain management options preferred: [] cut cord/dad catch: [] : [] PP control planned: [] discussed possible routes of delivery and associated risks: [] special requests: [] Specific Issue/Plans Covid status: [] Flu vaccine: [] Tdap vaccine: [] Rhogam: [] LARC form signed: [] Problem list reviewed and updated with the most current plan of care details and appropriate orders placed. Relevant counseling for the gestational age provided. Continue routine care and follow up unless otherwise noted in visit notes/problem list details Initial Weight: 142 lb Date -???-???-???-???-???-? ??-???-???-???-???-??? -???- EGA Weight BP Urine Prot -???-???-???-???-???-? ??-???-???-???-???-??? -???- Glucose FHR FuHt Pres Dilation -???-???-???-???-???-? ??-???-???-???-???-??? -???- Effaced St Visit Note 05/18/23 -???-???-???-???-???-? ??-???-???-???-???-??? -???- 8w 0d 142 lb 8 oz (+8 oz) 117/73 -???-???-???-???-???-? ??-???-???-???-???-??? -???- 163 -???-???-???-???-???-? ??-???-???-???-???-??? -???- LC- CRL 13.5 mm con with LMP. 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 ??-???-???-???-???-??? -???- 10w 0d 139 lb 6 oz (-2 lb 10 oz) 114/79 Negative -???-???-???-???-???-? ??-???-???-???-???-??? -???- Negative 160 -???-???-???-???-???-? ??-???-???-???-???-??? -???- JV- no lof, vaginal bleeding, or dec fm . 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 ACOG First Trimester First Trimester: Desire for , Alcohol, Tobacco Cessation, Illicit/Recreational Drug/Substance Use, Intimate Partner Violence, Barriers to care, Unstable Housing, Communication Barriers, Environmental/Work Hazards, Anticipated Course of Care, Toxoplasmosis Precations, Use of Any medications, Sexual activity, Exercise, Dental Care, Sauna/Hot tub use, Seat Belt use, Childbirth classes/Hospital facilities, , Travel, Indications for Ultrasound and Screening for Aneuploidy Results POC Urinalysis 2 Dip (Clinic) Office (more content not included)... Normal [facility] Absolute lymphocyte countOrd ered By: Yaritza Mariscal on 05-30-2023 Lymphocytes Auto (Unsp spec) [#/Vol] 1.79 10*3/uL 0.83-4.51 [facility] Automated lymphocyte count a s percentage of total leukocytesOrdered By: Yaritza Mariscal on 05-30-2023 Lymphocytes/100 WBC Auto (Unsp spec) 19.5 % 19-41 [facility] Basophil percentageOrdered B y: Yaritza Mariscal on 05-30-2023 Basophils/100 WBC (Bld) 0.2 % 0-1 [facility] Eosinophils/100 WBC (Bld) 0.3 % 0-5 [facility] Hemoglobin (Bld) [Mass/Vol] 11.8 g/dL 12.0-15.0 [facility] Monocytes/100 WBC (Bld) 3.7 % 0-10 [facility] Neutrophils (Bld) [#/Vol] 6.9 10*3/uL 2.0-7.7 [facility] Neutrophils/100 WBC (Bld) 75.6 % 47-70 [facility] WBC (Bld) [#/Vol] 9.2 10*3/uL 4.4-11.0 [facility] CBC W/Diff, Automatedon Absolute Lymph 1.79 X10 3/uL Normal 0.83-4.51 [facility] Comment on above: Performed By: #### L 501.0900, L500.4050, L100.0100 #### [facility] [address] [place], [address] Absolute Neut 6.9 X10 3/uL Normal 2.0-7.7 [facility] Comment on above: Performed By: #### L 501.0900, L500.4050, L100.0100 #### [facility] [address] [place], [address] Basophils/100 WBC (Bld) 0.2 % Normal 0-1 [facility] Comment on above: Performed By: #### L 501.0900, L500.4050, L100.0100 #### [facility] [address] [place], [address] Eosinophils/100 WBC (Bld) 0.3 % Normal 0-5 [facility] Comment on above: Performed By: #### L 501.0900, L500.4050, L100.0100 #### [facility] [address] [place], [address] Erythrocyte distribution width (RBC) [Ratio] 12.4 % Normal 11.6-14.6 [facility] Comment on above: Performed By: #### L 501.0900, L500.4050, L100.0100 #### [facility] [address] [place], [address] Hematocrit (Bld) [Volume fraction] 37.4 % Normal 37-47 [facility] Comment on above: Performed By: #### L 501.0900, L500.4050, L100.0100 #### [facility] [address] [place], [address] Hemoglobin (Bld) [Mass/Vol] 11.8 g/dL Low 12.0-15.0 [facility] Comment on above: Performed By: #### L 501.0900, L500.4050, L100.0100 #### [facility] [address] [place], [address] IG% 0.700 Normal 0.0-0.9 [facility] Comment on above: Result Comment: IG% - Immature Granulocytes (promyelocytes, myelocytes and metamyelocytes) > 1% indicates that a LEFT SHIFT is Present. Performed By: #### L 501.0900, L500.4050, L100.0100 #### [facility] [address] [place], [address] Lymphocytes/100 WBC (Bld) 19.5 % Normal 19-41 [facility] Comment on above: Performed By: #### L 501.0900, L500.4050, L100.0100 #### [facility] [address] [place], [address] MCH (RBC) [Entitic mass] 27.5 pg Normal 27.0-32.0 [facility] Comment on above: Performed By: #### L 501.0900, L500.4050, L100.0100 #### [facility] [address] [place], [address] MCHC (RBC) [Mass/Vol] 31.6 g/dL Low 32-36 [facility] Comment on above: Performed By: #### L 501.0900, L500.4050, L100.0100 #### [facility] [address] [place], [address] MCV (RBC) [Entitic vol] 87.2 fL Normal 81-99 [facility] Comment on above: Performed By: #### L 501.0900, L500.4050, L100.0100 #### [facility] [address] [place], [address] Monocytes/100 WBC (Bld) 3.7 % Normal 0-10 [facility] Comment on above: Performed By: #### L 501.0900, L500.4050, L100.0100 #### [facility] [address] [place], [address] Neutrophils/100 WBC (Bld) 75.6 % High 47-70 [facility] Comment on above: Performed By: #### L 501.0900, L500.4050, L100.0100 #### [facility] [address] [place], [address] Nucleated RBC (Bld) [#/Vol] 0 10*3/uL Normal 0-5 [facility] Comment on above: Performed By: #### L 501.0900, L500.4050, L100.0100 #### [facility] [address] [place], [address] Platelet mean volume (Bld) [Entitic vol] 10.0 fL Normal 6.2-12.0 [facility] Comment on above: Performed By: #### L 501.0900, L500.4050, L100.0100 #### [facility] [address] [place], [address] Platelets (Bld) [#/Vol] 273 10*3/uL Normal 150-450 [facility] Comment on above: Performed By: #### L 501.0900, L500.4050, L100.0100 #### [facility] [address] [place], [address] RBC (Bld) [#/Vol] 4.29 10*6/uL Normal 4.2-5.4 [facility] Comment on above: Performed By: #### L 501.0900, L500.4050, L100.0100 #### [facility] [address] [place], [address] RDW SD 39.5 fl Normal 35.1-43.9 [facility] Comment on above: Performed By: #### L 501.0900, L500.4050, L100.0100 #### [facility] [address] [place], [address] WBC (Bld) [#/Vol] 9.2 10*3/uL Normal 4.4-11.0 [facility] Comment on above: Performed By: #### L 501.0900, L500.4050, L100.0100 #### [facility] [address] [place], [place], [id number] Determination of erythrocyte mean corpuscular volume (MCV)Ordered By: Yaritza Mariscal on 05-30-2023 MCV (RBC) [Entitic vol] 87.2 fL 81-99 [facility] Erythrocyte distribution wid th ratioOrdered By: Yaritza Mariscal on 05-30-2023 Erythrocyte distribution width (RBC) [Ratio] 12.4 % 11.6-14.6 [facility] Erythrocyte distribution wid th standard deviationOrdered By: Yaritza Mariscal on 05-30-2023 Erythrocyte distribution width (RBC) [Entitic vol] 39.5 fL 35.1-43.9 [facility] HIV - WCHon 05-30-2023 HIV Non-Reactive Normal Nonreactive [facility] Comment on above: Order Comment: Reaso n for Exam: Performed By: #### L 501.0900, L500.4050, L100.0100 #### [facility] [address] [place], [address] HIV 1 and HIV-2 antibody ass ay with HIV-1 p24 antigen detectionOrdered By: Yaritza Mariscal on 05-30-2023 HIV 1+2 Ab+HIV1 p24 Ag IA Ql Non-Reactive Nonreactive [facility] Hematocrit Auto (Bld) [Volum e fraction]Ordered By: Yaritza Mariscal on 05-30-2023 Hematocrit (Bld) [Volume fraction] 37.4 % 37-47 [facility] Hepatitis B Surface Antigeno n 05-30-2023 HEP B Surf Ag Non-Reactive Normal Nonreactive [facility] Comment on above: Order Comment: Reaso n for Exam: Performed By: #### L 501.0900, L500.4050, L100.0100 #### [facility] [address] [place], [place], [id number] Hepatitis C Antibodyon 05-30 Hepatitis C Ab Non-Reactive Normal Nonreactive [facility] Comment on above: Order Comment: Reaso n for Exam: Result Comment: Non Reactive: < 0.8 Equivocal: >/= 0.8 to < 1.0 Reactive: >/= 1.0 The [facility] recommends that a reactive/equivocal HCV antibody result be followed up by the HCV Nucleic Acid Amplification test ([id number]) Performed By: #### L 501.0900, L500.4050, L100.0100 #### [facility] [address] [place], [address] Immature granulocytes/100 WB C Auto (Bld)Ordered By: Yaritza Mariscal on 05-30-2023 Immature granulocytes/100 WBC (Bld) 0.700 % 0.0-0.9 [facility] Comment on above: IG% - Immature Granu locytes (promyelocytes, myelocytes and metamyelocytes) > 1% indicates that a LEFT SHIFT is Present. L509.8000on 05-30-2023 Syphilis Abs Non-Reactive Normal [facility] Comment on above: Order Comment: Reaso n for Exam: Performed By: #### L 501.0900, L500.4050, L100.0100 #### [facility] [address] [place], [address] Laboratory - Hematology and Cell countsOrdered By: Yaritza Mariscal on 05-30-2023 MCH (RBC) [Entitic mass] 27.5 pg 27.0-32.0 [facility] MCHC (RBC) [Mass/Vol] 31.6 g/dL 32-36 [facility] Nucleated RBC/100 WBC (Bld) [Ratio] 0 % 0-5 [facility] Platelets (Bld) [#/Vol] 273 10*3/uL 150-450 [facility] No Panel InformationOrdered By: Yaritza Mariscal on 05-30-2023 Hepatitis B Surface Antigen Non-Reactive Nonreactive [facility] Hepatitis C Antibody Non-Reactive Nonreactive [facility] Comment on above: Non Reactive: < 0.8 Equivocal: >/= 0.8 to < 1.0 Reactive: >/= 1.0The CDC recommends that a reactive/equivocal HCV antibody result be followed up by the HCV Nucleic Acid Amplificationtest (006560) Rubella IgG Antibody Reactive Nonreactive [facility] Comment on above: Antibody Results Int erpretation of Immune Status Non Reactive Presumed Non-Immune Equivocal Equivocal Reactive Presumed Immune Platelet mean volume Jan-Ec ker (Bld) [Entitic vol]Ordered By: Yaritza Mariscal on 05-30-2023 Platelet mean volume (Bld) [Entitic vol] 10.0 fL 6.2-12.0 [facility] RBC Auto (Bld) [#/Vol]Ordere d By: Yaritza Mariscal on 05-30-2023 RBC (Bld) [#/Vol] 4.29 10*6/uL 4.2-5.4 [facility] Rubella IgGon 05-30-2023 Rubella IgG Reactive Normal Nonreactive [facility] Comment on above: Order Comment: Reaso n for Exam: Result Comment: Anti body Results Interpretation of Immune Status Non Reactive Presumed Non-Immune Equivocal Equivocal Reactive Presumed Immune Performed By: #### L 501.0900, L500.4050, L100.0100 #### [facility] [address] [place], [address] Serum Treponema species anti body detectionOrdered By: Yaritza Mariscal on 05-30-2023 Treponema sp Ab Ql (S) Non-Reactive [facility] Type AND Screenon 05-30-2023 Ab SCREEN GEL Negative Normal [facility] Comment on above: Order Comment: PN Performed By: #### L 501.0900, L500.4050, L100.0100 #### [facility] [address] [place], [address] ABO and Rh group Nom (Bld) Blood group A Rh(D) positive Normal [facility] Comment on above: Order Comment: PN Performed By: #### L 501.0900, L500.4050, L100.0100 #### [facility] [address] [place], [address] Chlamydia/GC QUETA aptimaon CHLAMY,NUC ACID Negative Normal Negative [facility] Comment on above: Performed By: #### L 501.0900, L500.4050, L100.0100 #### [facility] [address] [place], [address] GC BY NUC ACID Negative Normal Negative [facility] Comment on above: Result Comment: Perf ormed at: =G - [facility] [address] [place], [place] [id number] Paddle Dyeing Machine Operator: Concepción Shah MD, Phone: [phone] Performed By: #### L 501.0900, L500.4050, L100.0100 #### [facility] [address] [place], [address] Urine Cultureon 05-19-2023 URC Culture exhibits no growth. Normal [facility] Comment on above: Performed By: #### L 501.0900, L500.4050, L100.0100 #### [facility] [address] [place], [address] Chlamydia trachomatis rRNA d etection by probe and target amplification methodOrdered By: Yaritza Mariscal on 05-18-2023 C. trachomatis rRNA QUETA+probe Ql (Unsp spec) Negative Negative [facility] Culture, urineOrdered By: Lorin Mariscal on 05-18-2023 Bacteria identified Cx Nom (U) Culture exhibits no growth. [facility] Bacteria identified Cx Nom (U) Culture exhibits no growth. [facility] Laboratory - Microbiology an d Antimicrobial susceptibilityOrdered By: Yaritza Mariscal on 05-18-2023 N. gonorrhoeae DNA QUETA+probe Ql (Unsp spec) Negative Negative [facility] Comment on above: Performed at: =[facility] [id number] [place], [place] [id number] Director: Concepción Shah MD, Phone: [phone] Senior Ios Software Engineer Office Visit Reporton 05-18-2023 Senior Ios Software Engineer Office Visit Report [facility] 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 OB, OR nurse Hris Administrator Required: No Is patient in pain?: No Allergies No Known Allergies Allergy (Unverified 05/18/23 13:01) Medications PNV 153-FA 400 mcg-om3 35 mg-dha 25 mg-epa 5 mg-fish oil chew tablet tab PO 05/13/23 [History Confirmed 05/13/23] ondansetron 4 mg disintegrating tablet 4 mg PO Q8H #30 tabs 05/18/23 [Rx Confirmed 05/18/23] Last Menstrual Period: 03/23/23 Zika: Zika virus screening: Negative : No PFSH PFSH Medical History Seasonal allergies Surgical History [place] teeth extracted Family History (Updated 05/18/23 @ 13:26 by Yaritza Mariscal CNM) Grandmother Breast cancer, Onset Age: 50 Paternal Social History adopted: No household members: spouse current occupational status: employed 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 history of recent travel: Yes ([facility]- [place]) out of state: Yes out of country: No sexually active: Yes Smoking Status: Never smoker alcohol intake: current alcohol intake frequency: holidays/special occasions only details: not while substance use type: does not use well-balanced diet: daily or most days caffeine: No eating out: 1-3 times/week during the past year weight has: remained stable what type of physical activity do you participate in: walking frequency: 1-2 times per week duration: 15-30 minutes/day michaela/hoahaoism: Confucianism seatbelt use: always do you feel safe at home: Yes 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 OB Visit DAMARIS Calculator Estimated Delivery Date Method Current WG Current Estimate 12/28/23 LMP (Certain) 8w 0d Comments: HIV: Urine Culture: Sequential Screen: NIPT Screen: Estimated Due Date: 12/28/23 Expected Delivery Route/Plan Labor Preferences- CB/BF classes: [] labor support person: [] labor intervention preferences: [] pain management options preferred: [] cut cord/dad catch: [] : [] PP control planned: [] discussed possible routes of delivery and associated risks: [] special requests: [] Specific Issue/Plans Covid status: [] Flu vaccine: [] Tdap vaccine: [] Rhogam: [] LARC form signed: [] Problem list reviewed and updated with the most current plan of care details and appropriate orders placed. Relevant counseling for the gestational age provided. Continue routine care and follow up unless otherwise noted in visit notes/problem list details Initial Weight: 142 lb Date -???-???-???-???-???-? ??-???-???-???-???-??? -???- EGA Weight BP Urine Prot -???-???-???-???-???-? ??-???-???-???-???-??? -???- Glucose FHR FuHt Pres Dilation -???-???-???-???-???-? ??-???-???-???-???-??? -???- Effaced St Visit Note 05/18/23 -???-???-???-???-???-? ??-???-???-???-???-??? -???- 8w 0d 142 lb 8 oz (+8 oz) 117/73 -???-???-???-???-???-? ??-???-???-???-???-??? -???- 163 -???-???-???-???-???-? ??-???-???-???-???-??? -???- LC- CRL 13.5 mm con with LMP. unsure about nipt.OR nurse, radiology info given Menstrual History Last Menstrual Period: 03/23/23 Reported LMP: definite Antepartum Record Genetic Screening: Congenital Heart Defect: Other, Neural Tube Defect: Other, Hemoglobinopathy Or Carrier: Other, Cystic Fibrosis: Other, Chromosome Abnormality: Other, Jun-Sachs: Other, Hemophilia: Other, Intellectual Disability/Autism: Other, Recurrent Loss/Stillbirth: Other, Other Structural Defect: Other, Other Genetic Disease: Other and Maternal Metabolic Disorder: Other Infection History: Live with someone with TB or Exposed to TB: No, Patient or Partner has history of Genital Herpes: No, Rash or Viral illness since last mentrual period: No, Prior GBS-Infected child: No, History of STD: No, HIV Infection: No, History of Hepatitis: No, Recent travel outside of [place]: No, Concern for hepatitis exposure: No, Varicella immune: Yes (more content not included)... Normal [facility] Laboratory - Chemistry and C hemistry - challengeon 05-10-2023 HCG ( test) Ql (U) Negative [facility] Office Visit Reporton 2023 Office Visit Report [facility] [address] [place] [address] OFFICE VISIT Date of Service: 05/10/23 MR#: [id number] Acct: [id number] Patient: MARTHA WINN Rep #: [id number] : 2000 Provider: FATMATA dorantes Age/Sex: 22/F Location[place] [facility] [place] Status: Signed Intake Vital Signs 05/10/23 16:12 Height 5 ft 4 in Weight: 144 lb BMI 24.7 BP 118/78 Intake Visit Reasons: UPT and Proof of Preg letter Hris Administrator Required: No Is patient in pain?: No Allergies Unable to Assess Allergy (Unverified 05/10/23 16:13) Is last menstrual period known: Yes Post menopausal: No Patient : Yes Results POC Urine Office , Urine Negative Last Edit by Sonam Oneil on 05/10/23 16:21 Nursing Note Patient was requesting proof of letter. Patient had positive urine test in office. 05/12/23 0852 Date Binta Luna CNM Cosigner Signature: Date (if applicable) CC: Normal [facility] No Panel Informationon 09-03 Culture Urine No growth at 48 hours. [facility] Work Phone: [facility] Reporton 2021 [facility] Report . Pathology Reports Accession: Collected Date/Time: Received Date/Time: Pathologist: [id number] 04/30/2021 10:50 EST 04/30/2021 18:00 EST [facility] Report SPECIMEN: Specimen Description: Liquid Prep Reflex ASCUS+ Specimen: Cervical Screening or Diagnostic: Screening RELEVANT HISTORY: LMP: [id number] SPECIMEN ADEQUACY: SATISFACTORY FOR EVALUATION ENDOCERVICAL/TRANSFORM ATIONAL ZONE COMPONENT PRESENT INTERPRETATION/RESULTS : NEGATIVE FOR INTRAEPITHELIAL LESION OR MALIGNANCY COMMENT: This Pap Test was successfully processed and evaluated with the assistance of the [employer] ThinPrep Test Imaging System. Electronically Signed by Pathology report verified by [facility] Screened by: [place] Electronically signed by Kita PECK (ASC) Sign-Out Date: 05/07/2021 14:29 Performing Lab: [facility], [address] [place] [address] Disclaimer The Pap test is a screening test for cervical cancer. As evidenced by published data, it is subject to both inherent false negative and false positive results. Your patient's results should be interpreted in context with pertinent clinical history including gynecological examination. Normal [facility] ([place]) CTPCRon 05-04-2021 C. trachomatis Interp Normal See CT Interp N [facility] [place] Comment on above: Result Comment: C. t rachomatis DNA not detected. Specimen is presumptive negative for C. trachomatis. A negative result does not preclude C. trachomatis infection because results depend on adequate specimen collection, absence of inhibitors, and sufficient DNA to be detected. See CT Interp N Performed By: #### C TPCR, NGPCR1 #### [address] [address] C.trachomatis PCR Negative Normal Negative [facility] ([place]) Comment on above: Result Comment: Gallagher sport tube received with two swabs. Review collection procedure. Inappropriate collection may cause aberrant results. Transport tube received with two swabs. Review collection procedure. Inappropriate collection may cause aberrant results. Molecular (PCR) assay performed on the [employer]ars[employer] 4800 system. Performed By: #### C TPCR, NGPCR1 #### [address] [address] Chlam Source Genital Female Normal [facility] ([place] Comment on above: Performed By: #### C TPCR, NGPCR1 #### [address] [address] [id number] 05-04-2021 GC PCR Source Genital Female Normal [facility] ([place]) Comment on above: Performed By: #### C TPCR, NGPCR1 #### [address] [address] N. gonorrhoeae (PCR) Negative Normal Negative [facility] ([place]) Comment on above: Result Comment: Gallagher sport tube received with two swabs. Review collection procedure. Inappropriate collection may cause aberrant results. Transport tube received with two swabs. Review collection procedure. Inappropriate collection may cause aberrant results. Molecular (PCR) assay performed on the [employer] 4800 System. Performed By: #### C TPCR, NGPCR1 #### [address] [address] N. gonorrhoeae Interp Normal See NG Interp N [facility] ([place]) Comment on above: Result Comment: N. g onorrhoeae DNA not detected. Specimen is presumptive negative for N. gonorrhoeae. A negative result does not preclude Neisseria gonorrhoeae infection because results depend on adequate specimen collection, absence of inhibitors, and sufficient DNA to be detected. See NG Interp N Performed By: #### C TPCR, NGPCR1 #### [place] [address] LABORATORYOrdered By: Papo Whitley on 04-30-2021 C. trachomatis DNA QUETA+probe Ql (Unsp spec) Negative 2 (04/30/21 1:34 PM) Invalid Interpretation Code Negative [facility] Comment on above: Result Comment: Gallagher sport tube received with two swabs. Review collection procedure. Inappropriate collection may cause aberrant results. C. trachomatis Interp C. trachomatis DNA not detected. Specimen is presumptive negative forC. trachomatis.A negative result does not preclude C. trachomatis infection becauseresults depend on adequate specimen collection, absence of inhibitors,and sufficient DNA to be detected. Invalid Interpretation Code See CT Interp N [facility] [employer]Sero SS N. gonorrhoeae DNA QUETA+probe Ql (Unsp spec) Negative 1 (04/30/21 1:34 PM) Invalid Interpretation Code Negative [facility] SS Comment on above: Result Comment: Gallagher sport tube received with two swabs. Review collection procedure. Inappropriate collection may cause aberrant results. N. gonorrhoeae Interp N. gonorrhoeae DNA not detected. Specimen is presumptive negative forN. gonorrhoeae. A negative result does not preclude Neisseria gonorrhoeaeinfection because results depend on adequate specimen collection, absenceof inhibitors, and sufficient DNA to be detected. Invalid Interpretation Code See NG Interp N [facility] Laboratory - Specimen inform ationOrdered By: Papo Whitley on 04-30-2021 Specimen source Nom (Unsp spec) Genital Female (04/30/21 1:34 PM) Invalid Interpretation Code AH Auto Viro/Sero SS Vital Signs Date Time Vital Sign Value Performing Clinician Faci lity 07-26-2023 09:44-0400 Body height 162.56 cm No Primary Care Physician [facility] 07-26-2023 09:44-0400 Body mass index (BMI) [Ratio] 25 kg/m2 No Primary Care Physician [facility] 07-26-2023 09:44-0400 Body weight 65.99 kg No Primary Care Physician [facility] 07-26-2023 09:44-0400 Diastolic blood pressure 70 mm[Hg] No Primary Care Physician [facility] 07-26-2023 09:44-0400 Systolic blood pressure 122 mm[Hg] No Primary Care Physician [facility] 06-29-2023 15:02-0500 Body mass index (BMI) [Ratio] 24.2 kg/m2 No Primary Care Physician [facility] 06-29-2023 15:02-0500 Body weight 64.01 kg No Primary Care Physician [facility] 06-29-2023 15:02-0500 Diastolic blood pressure 76 mm[Hg] No Primary Care Physician [facility] 06-29-2023 15:02-0500 Systolic blood pressure 113 mm[Hg] No Primary Care Physician [facility] 06-03-2023 14:18-0500 Body temperature 98 [degF] No Primary Care Physician [facility] 06-01-2023 13:04-0500 Body height 162.56 cm No Primary Care Physician [facility] 06-01-2023 13:04-0500 Body mass index (BMI) [Ratio] 23.9 kg/m2 No Primary Care Physician [facility] 06-01-2023 13:04-0500 Body weight 63.21 kg No Primary Care Physician [facility] 06-01-2023 13:04-0500 Diastolic blood pressure 79 mm[Hg] No Primary Care Physician [facility] 06-01-2023 13:04-0500 Systolic blood pressure 114 mm[Hg] No Primary Care Physician [facility] 05-18-2023 13:01-0500 Body mass index (BMI) [Ratio] 24.4 kg/m2 No Primary Care Physician [facility] 05-18-2023 13:01-0500 Body weight 64.63 kg No Primary Care Physician [facility] 05-18-2023 13:01-0500 Diastolic blood pressure 73 mm[Hg] No Primary Care Physician [facility] 05-18-2023 13:01-0500 Systolic blood pressure 117 mm[Hg] No Primary Care Physician [facility] 05-10-2023 16:12-0500 Body mass index (BMI) [Ratio] 24.7 kg/m2 No Primary Care Physician [facility] 05-10-2023 16:12-0500 Body weight 65.31 kg No Primary Care Physician [facility] 05-10-2023 16:12-0500 Diastolic blood pressure 78 mm[Hg] No Primary Care Physician [facility] 05-10-2023 16:12-0500 Systolic blood pressure 118 mm[Hg] No Primary Care Physician [facility] Encounters Encounter Date Encounter Type Care Provider Facility Start: 02-10-2024 End: 02-10-2024 ambulatory Sonamlarry Martinez SEWER BUILDER Facility:[facility] Start: 02-10-2024 End: 02-10-2024 ambulatory Sonamlarry Martinez SEWER BUILDER Facility:[facility] Start: 01-03-2024 End: 01-03-2024 ambulatory Sonam Martinez SEWER BUILDER Facility:[facility] Start: 12-29-2023 ambulatory Binta Luna Facility :[facility] Start: 12-29-2023 End: 01-01-2024 Evaluation and management of inpatient Binta Luna Facility:[facility] Start: 12-27-2023 End: 12-28-2023 ambulatory Sonamlarry Martinez SEWER BUILDER Facility:[facility] Start: 12-27-2023 End: 12-27-2023 ambulatory Sonamlarry Martinez SEWER BUILDER Facility:[facility] Start: 12-22-2023 End: 12-22-2023 ambulatory Sonam Martinez SEWER BUILDER Facility:[facility] Start: 12-21-2023 ambulatory Sonam Martinez SEWER BUILDER Facil ity:[facility] Start: 12-21-2023 End: 12-21-2023 ambulatory Sonam Juan SEWER BUILDER Facility:[facility] Start: 12-12-2023 End: 12-12-2023 ambulatory Sonam Juan SEWER BUILDER [facility] Start: 12-05-2023 End: 12-05-2023 ambulatory Sonam Juan SEWER BUILDER Facility:[facility] Start: 11-30-2023 End: 11-30-2023 ambulatory Sonam Juan SEWER BUILDER [facility] Start: 11-30-2023 End: 11-30-2023 ambulatory Sonam Juan SEWER BUILDER Facility:[facility] Start: 11-18-2023 End: 11-18-2023 ambulatory Sonam Martinez SEWER BUILDER Facility:[facility] Start: 11-17-2023 ambulatory Sonam Juan SEWER BUILDER Facil ity:[facility] Start: 11-15-2023 End: 11-15-2023 ambulatory Sonam Juan SEWER BUILDER Facility:[facility] Start: 11-15-2023 ambulatory Sonam Juan SEWER BUILDER Facil ity:[facility] Start: 11-01-2023 End: 11-01-2023 ambulatory Sonam Juan SEWER BUILDER Facility:[facility] Start: 10-12-2023 End: 10-12-2023 ambulatory Sonam Juan SEWER BUILDER [facility] Start: 10-12-2023 End: 10-12-2023 ambulatory Binta Luna Facility:[facility] Start: 09-22-2023 End: 09-22-2023 ambulatory Binta Luna Facility:[facility] Start: 09-21-2023 End: 09-21-2023 ambulatory Sonam Martinez SEWER BUILDER Facility:[facility] Start: 08-25-2023 End: 08-25-2023 ambulatory Sonam Martinez SEWER BUILDER [facility] Start: 08-16-2023 ambulatory MD NO PRIMARY CARE [facility] Start: 07-26-2023 End: 07-26-2023 Patient encounter procedure No Primary Care Physician [facility] Work Phone: Start: 07-26-2023 End: 07-26-2023 ambulatory No Primary Care Physician [facility] Work Phone: Start: 07-26-2023 End: 07-26-2023 ambulatory Nuvia Silva NP Facility:[facility] Start: 06-29-2023 End: 06-29-2023 Patient encounter procedure No Primary Care Physician [facility] Work Phone: Start: 06-29-2023 End: 06-29-2023 ambulatory Sonam Martinez SEWER BUILDER [facility] Start: 06-03-2023 ambulatory Sonam Martinez SEWER BUILDER Facil ity:[facility] Start: 06-03-2023 Registered Referred No Primary Care Physician [facility] Work Phone: Start: 06-01-2023 End: 06-01-2023 Patient encounter procedure No Primary Care Physician [facility] Work Phone: Start: 06-01-2023 End: 06-01-2023 ambulatory Sonam Martinez SEWER BUILDER Facility:[facility] Start: 05-30-2023 End: 05-30-2023 ambulatory No Primary Care Physician [facility] Work Phone: Start: 05-30-2023 End: 05-30-2023 Patient encounter procedure No Primary Care Physician [facility]-Laboratory Work Phone: Start: 05-30-2023 End: 05-30-2023 ambulatory [facility] Facility:[facility] Start: 05-18-2023 End: 05-18-2023 ambulatory No Primary Care Physician [facility] Work Phone: Start: 05-18-2023 End: 05-18-2023 Patient encounter procedure No Primary Care Physician [facility]-Laboratory, Specimen Work Phone: Start: 05-18-2023 End: 05-18-2023 Patient encounter procedure No Primary Care Physician [facility] Work Phone: Start: 05-18-2023 End: 05-18-2023 [facility] Start: 05-18-2023 End: 05-18-2023 ambulatory [facility] Facility:[facility] Start: 05-10-2023 End: 05-10-2023 Patient encounter procedure No Primary Care Physician [facility] Work Phone: Start: 05-10-2023 End: 05-10-2023 ambulatory Nuvia Silva SEWER BUILDER Facility:[facility] Start: 09-03-2021 End: 09-07-2021 Outreach Lab MAILE ZIEGLER DIEING OUT MACHINE OPERATOR-PARBOILER [facility] Start: 04-30-2021 End: 05-04-2021 Outreach Lab TADEO SRINIVASAN DIEING OUT MACHINE OPERATOR-PARBOILER [facility] Procedures Date Procedure Procedure Detail Performing Clinician Start: 05-18-2023 Urine culture No Primar y Care Physician Plan of Treatment Date Care Activity Detail Author Start: 06-03-2023 [facility] CBC W Auto Different ial panel - Blood [facility] Hepatitis B surface antigen measurement [facility] Hepatitis C antibody measurement [facility] HIV 1+2 Ab+HIV1 p24 Ag [Presence] in Serum or Plasma by Immunoassay [facility] Patient Education ED Body Fluid Exposure Not ... [facility] Work Phone: Patient referral [facility] Work Phone: Rubella IgG measurement [facility] Treponema sp Ab [Presence] in Serum [facility] Immunizations Immunization Date Immunization Notes Care Provider Fa cility 04-20-2021 SARS-CoV-2 (COVID-19 ) mRNA-1273 vaccine TADEO SRINIVASAN DIEING OUT MACHINE OPERATOR-PARBOILER [facility] 12-25-2020 influenza virus vacc ine, unspecified formulation TADEO SRINIVASAN DIEING OUT MACHINE OPERATOR-PARBOILER [facility] 08-08-2020 SARS-CoV-2 mRNA (tozinameran) vaccine TADEO SRINIVASAN DIEING OUT MACHINE OPERATOR-PARBOILER [facility] 07-10-2020 SARS-CoV-2 mRNA (tozinameran) vaccine TADEO SRINIVASAN DIEING OUT MACHINE OPERATOR-PARBOILER [facility] 11-09-2017 hepatitis B vaccine, adult dosage TADEO SRINIVASAN DIEING OUT MACHINE OPERATOR-PARBOILER [facility] 10-12-2016 hepatitis A vaccine, pediatric dosage, unspecified formulation TADEO SRINIVASAN DIEING OUT MACHINE OPERATOR-[facility] 10-12-2016 hepatitis B pediatri c vaccine TADEO SRINIVASAN DIEING OUT MACHINE OPERATOR-[facility] 10-12-2016 meningococcal polysaccharide (groups A, C, Y and W-135) diphtheria toxoid conjugate vaccine (MCV4P) TADEO SRINIVASAN DIEING OUT MACHINE OPERATOR-[facility] 10-01-2011 meningococcal polysaccharide (groups A, C, Y and W-135) diphtheria toxoid conjugate vaccine (MCV4P) TADEO SRINIVASAN DIEING OUT MACHINE OPERATOR-[facility] 10-01-2011 tetanus toxoid, redu martha diphtheria toxoid, and acellular pertussis vaccine, adsorbed TADEO SRINIVASAN DIEING OUT MACHINE OPERATOR-[facility] 10-01-2011 varicella virus vaccine CHELSEA HUIZAR DIEING OUT MACHINE OPERATOR-[facility] 09-01-2004 measles/mumps/rubell a virus vaccine TADEO SRINIVASAN DIEING OUT MACHINE OPERATOR-[facility] 09-01-2004 poliovirus vaccine, inactivated TADEO SRINIVASAN DIEING OUT MACHINE OPERATOR-[facility] 02-28-2001 haemophilus influenz ae type b vaccine, PRP-OMP conjugate TADEO SRINIVASAN DIEING OUT MACHINE OPERATOR-[facility] 12-01-2000 measles/mumps/rubell a virus vaccine TADEO SRINIVASAN DIEING OUT MACHINE OPERATOR-PARBOILER [facility] 09-02-2000 hepatitis B pediatri c vaccine TADEO SRINIVASAN DIEING OUT MACHINE OPERATOR-PARBOILER [facility] 09-02-2000 varicella virus vaccine CHELSEA HUIZAR DIEING OUT MACHINE OPERATOR-PARBOILER [facility] 05-27-2000 poliovirus vaccine, inactivated TADEO SRINIVASAN DIEING OUT MACHINE OPERATOR-PARBOILER [facility] 02-18-2000 haemophilus influenz ae type b vaccine, PRP-OMP conjugate TADEO SRINIVASAN DIEING OUT MACHINE OPERATOR-PARBOILER [facility] 02-18-2000 hepatitis B pediatri c vaccine TADEO SRINIVASAN DIEING OUT MACHINE OPERATOR-PARBOILER [facility] 1999 haemophilus influenz ae type b vaccine, PRP-OMP conjugate TADEO SRINIVASAN DIEING OUT MACHINE OPERATOR-PARBOILER [facility] 1999 poliovirus vaccine, inactivated TADEO SRINIVASAN DIEING OUT MACHINE OPERATOR-PARBOILER [facility] 1999 haemophilus influenz ae type b vaccine, PRP-OMP conjugate TADEO SRINIVASAN DIEING OUT MACHINE OPERATOR-PARBOILER [facility] 1999 poliovirus vaccine, inactivated TADEO SRINIVASAN DIEING OUT MACHINE OPERATOR-PARBOILER [facility] Payers Date Payer Category Payer Self-pay 2023 Unknown [id number] 1999 Unknown [id number] 2.16.840.1.381755.3.579.2.479 Unknown [facility] [employer] [place]/ BENEFIT SERV [id number] Unknown [id number] 2.16.840.1.094670.3.579.2.462 Unknown [id number] 2.16840.1.361356.3.579.2.462 Unknown [id number] 2.16840.1.087352.3.579.2.462 Unknown [id number] 2.16840.1.233715.3.579.2.462 Unknown [id number] 2.840.1.753484.3.579.2.462 Unknown [id number] 2.16840.1.351393.3.579.2.462 Unknown [id number] 2.16840.1.281960.3.579.2.462 Unknown [id number] 2.16840.1.748270.3.579.2.462 Unknown [id number] 2.16840.1.499711.3.579.2.462 Unknown [id number] 2.16840.1.555373.3.579.2.462 Unknown [id number] 2.16840.1.392995.3.579.2.462 Unknown [id number] 2.16840.1.475330.3.579.2.462 Unknown [id number] 2.16840.1.436067.3.579.2.462 Unknown [id number] 2.16.840.1.661661.3.579.2.462 Unknown [id number] 2.16840.1.286796.3.579.2.462 Unknown [id number] 2.16840.1.064529.3.579.2.462 Unknown [id number] 2.16840.1.389754.3.579.2.462 Unknown [id number] 2.16840.1.606457.3.579.2.462 Unknown [id number] 2.840.1.465400.3.579.2.462 Unknown [id number] 2.16840.1.303938.3.579.2.462 Unknown [id number] 2.840.1.756974.3.579.2.462 Unknown [id number] 2.840.1.866694.3.579.2.462 Unknown [id number] 2.840.1.741984.3.579.2.462 Unknown [id number] 2.840.1.886825.3.579.2.462 Unknown [id number] 2.840.1.378637.3.579.2.462 Unknown [id number] 2.840.1.066148.3.579.2.462 Unknown [id number] 2.840.1.956122.3.579.2.462 Unknown [id number] 2.840.1.366535.3.579.2.462 Unknown [id number] 2.840.1.514110.3.579.2.462 Unknown [id number] 2.840.1.039450.3.579.2.462 Unknown [id number] 2.840.1.704517.3.579.2.462 Unknown [id number] 2.840.1.856046.3.579.2.462 Unknown [id number] 2.840.1.865797.3.579.2.462 Unknown [id number] 2.16.840.1.260340.3.579.2.462 Unknown [id number] 2.16.840.1.729222.3.579.2.462 Unknown [id number] 2.16.840.1.184108.3.579.2.462 Unknown [id number] 2.16.840.1.391199.3.579.2.462 Social History Date Type Detail Facility Start: 02-02-2019 Never smoked t obacco (finding) [facility] Sex Assigned At [facility] Start: 05-20-2023 End: 07-26-2023 Tobacco smoking status NHIS Unknown if ever smoked [facility] Start: 2000 Sex Assigned At Female W [facility] Clinical Note 09-05-2021 Note Date & [...] Locations *1: This test was performed at: [facility], [address] [place] [address], [facility] , [facility] Evaluation + Plan note Note Date & Type Note Facility Evaluation + Plan note No data available for this section [facility] Evaluation note Note Date & Type Note Facility Evaluation note Diagnosis Onset Date acute Supervision of normal first acute [facility] Work Phone: Evaluation note Note Date & Type Note Facility Evaluation note Diagnosis Onset Date acute Supervision of normal first acute acute Supervision of normal first [facility] Work Phone: Evaluation note Note Date & Type Note Facility Evaluation note Diagnosis Onset Date acute Supervision of normal first acute acute Supervision of normal first acute Exposure to body fluid acute Exposure to body fluid acute acute Supervision of normal first acute Dizziness acute acute Supervision of normal first [facility] Work Phone: Hospital Discharge instructions Note Date & Type Note Facility Hospital Discharge instructions No data available for this section [facility] Progress note Note Date & Type Note Facility Progress note No data available for this section [facility] Summary Purpose Family History No Family History Records Found Relationship Condition Age at Onset Recorded Date/T j luis grandmother Malignant neoplasm of breast 49 Advance Directives No Advanced Directives Records Found Advance Directive Response Recorded Date/ Time Living Will No June 03 4:37pm Power of Armhole Baster Hand No June 03, 2023 4:37pm Chief Complaint and Reason for Visit Chief Complaint UPT and Proof of Pre g letter New OB, [place] nurse Reason for Visit Supervision of normal first Chief Complaint UPT and Proof of Pre g letter New OB, OR nurse E-ORDER 10 WK OB Reason for Visit Supervision of normal first Supervision of normal first Chief Complaint UPT and Proof of Pre g letter New OB, OR nurse E-ORDER 10 WK OB exposure 14 w ob 18 weeks Reason for Visit Supervision of normal first Supervision of normal first Exposure to body fluid Exposure to body fluid Supervision of normal first Dizziness Supervision of normal first Additional Source Comments Care Team (unrecognized sect ion and content) Team Status: Active Member Role Status Dates No Primary Care Physician Primary Care Provider Active Team Status: Inactive Member Role Status Dates No Primary Care Physician Primary Care Provider, Refer ring Provider Active Yaritza Mariscal CNM Attending Provider Active Team Status: Inactive Member Role Status Dates No Primary Care Physician Primary Care Provider, Refer ring Provider Active Nuvia Silva SEWER BUILDER, SEWER BUILDER-C Attending Provider Active Team Status: Inactive Member Role Status Dates No Primary Care Physician Primary Care Provider Active Yaritza Mariscal CNM Attending Provider, Referring Pr ovider Active Team Status: Active Member Role Status Dates Sonam Martinez SEWER BUILDER, SEWER BUILDER-C Primary Care Provider Active Team Status: Inactive Member Role Status Dates No Primary Care Physician Referring Provider Active Dr. Olivia Segal , Attending Provider Activ e Sonam Martinez SEWER BUILDER, SEWER BUILDER-C Primary Care Provider Active Team Status: Inactive Member Role Status Dates Sonam Martinez SEWER BUILDER, SEWER BUILDER-C Primary Care Provider Active Yaritza Mariscal CNM Attending Provider, Referring Pr ovider Active Team Status: Inactive Member Role Status Dates Sonam Martinez SEWER BUILDER, SEWER BUILDER-C Primary Care Provider, Referri ng Provider Active Dr. Olivia Segal , Attending Provider Activ e Team Status: Inactive Member Role Status Dates Sonam Martinez SEWER BUILDER, SEWER BUILDER-C Primary Care Provider, Referri ng Provider Active Nuvia Silva SEWER BUILDER, SEWER BUILDER-C Attending Provider Active Team Status: Active Member Role Status Dates Sonam Martinez NP, SEWER BUILDER-C Primary Care Provider Active Dr. Olivia Collazo MD Attending Provider Active Team Status: Inactive Member Role Status Dates Sonam Martinez SEWER BUILDER, SEWER BUILDER-C Primary Care Provider Active Nuvia Silva SEWER BUILDER, SEWER BUILDER-C Attending Provider, Referring Provider Active INFORMATION SOURCE (unrecogn ized section and content) DATE CREATED AUTHOR 09/10/2021 [facility] ([place] DATE CREATED AUTHOR AUTHOR'S ORGANIZ ATION 08/17/2023 [facility] DATE CREATED AUTHOR AUTHOR'S ORGANIZ ATION 03/04/2024 [facility] Goals (unrecognized section and content) Goals may be documented in a n alternate section FOR RECORDS PERTAINING TO PATIENTS WHO ARE [...] BE BASED ON THE PRIMARY CLINICAL RECORDS. [employer] [facility]. provides no warranty or guarantee of the accuracy or completeness of information in this document.
== END 2025-02-12 13:18 | disposition home or self-care (01) ==
LOC: ED 12:30
PROVIDERS: PCP Nurse Practitioner Primary Care; Visit Provider Emergency Medicine
DX: S61.239A Puncture wound without foreign body of unspecified finger without damage to nail, initial encounter (principal); Z77.21 Contact with and (suspected) exposure to potentially hazardous body fluids; W46.0XXA Contact with hypodermic needle, initial encounter; Y93.9 Activity, unspecified; Y99.0 Civilian activity done for income or pay; Y92.239 Unspecified place in hospital as the place of occurrence of the external cause
CPT/HCPCS: 86703; 86706; 86803; 87340

== ENCOUNTER → 2025-04-02 | Outpatient (CLI) | payer OTHER, SELFPAY ==
[2025-04-04 06:08] LABS: Chlamydia By Nucleic Acid AMP Negative (Negative); Gonococcus By Nucleic Acid AMP Negative (Negative)
== END | disposition home or self-care (01) ==
LOC: LABSPEC 11:17
PROVIDERS: PCP Nurse Practitioner Primary Care; Visit Provider Advanced Practice Midwife
DX: Z34.90 Encounter for supervision of normal pregnancy, unspecified, unspecified trimester (principal)
CPT/HCPCS: 87086; 87088; 87491; 87591

== ENCOUNTER → 2025-04-15 | Outpatient (CLI) | payer OTHER, SELFPAY ==
[2025-04-15 12:54] LABS: Hematocrit 39.3 % (37-47); Hemoglobin 12.3 g/dL (12.0-15.0); Immature Granulocytes Count 0.040 X10^3/uL (0.0-0.0); Mean Corp Hgb Conc 31.3 g/dL (32-36); Mean Corpuscular Volume 87.5 fL (81-99); Mean Platelet Vol. 10.1 fl (6.2-12.0); NRBC Flagged by Analyzer 0 % (0-5); Platelet Count 336 K/mm3 (150-450); RBC Distribution Width CV 12.8 % (11.6-14.6); RBC Distribution Width SD 40.5 fl (35.1-43.9); Red Blood Count 4.49 M/mm3 (4.2-5.4); White Blood Count 7.0 K/mm3 (4.4-11.0)
[2025-04-15 13:35] LABS: HIV Nonreactive (Nonreactive); Hepatitis B Surface Antigen Nonreactive (Nonreactive); Hepatitis C Antibody Nonreactive (Nonreactive); Syphilis Antibodies Nonreactive (Nonreactive)
== END | disposition home or self-care (01) ==
PROVIDERS: PCP Nurse Practitioner Primary Care; Visit Provider Advanced Practice Midwife
DX: Z34.81 Encounter for supervision of other normal pregnancy, first trimester (principal)
CPT/HCPCS: 36415; 85025; 86703; 86762; 86780; 86803; 86850; 86900; 86901; 87340